=== PATIENT | male | born 1950 | race Caucasian/White ===

== ENCOUNTER 2018-02-27 06:31 | Day surgery (SDC) | payer MEDICARE, BC ==
[2018-02-27] MEDS ORDERED: Cyclopentolate 1% Opth Drop 2 ML BOT ONE (06:53)
[2018-02-27] MEDS ORDERED: Phenylephrine 2.5% Ophth Soln 5 ML BOT ONE (06:53)
[2018-02-27] MEDS ORDERED: Lidocaine 2% 10 ML INJ ONE (07:58)
[2018-02-27] MEDS ORDERED: Midazolam HCl 2 mg/2 ml Vial ONE (07:58)
[2018-02-27] MEDS ORDERED: PROPOFOL 20 ML ONE (07:58)
[2018-02-27] MEDS ORDERED: Fentanyl 100 MCG/2 ML VIAL ONE (07:58)
--- NOTE | 2018-02-27 10:59 | OP ---
DATE OF SURGERY: 02/27/2018 PREOPERATIVE DIAGNOSIS: Glaucoma, left eye. POSTOPERATIVE DIAGNOSIS: Glaucoma, left eye. PROCEDURE: Pars plana vitrectomy and membrane peel, tube shunt scleral patch graft, left eye. SURGEON: Cedric Carter M.D. ANESTHESIA: Local with monitored anesthesia care. COMPLICATIONS: None. PROCEDURE IN DETAIL: The patient was identified in the preoperative holding area. Appropriate infor med consent for the planned surgical procedure on the left eye had been obtained. The patient was tr ansported to the operative suite. Appropriate cardiopulmonary monitoring was established. Local ane sthesia was obtained using retrobulbar and modified Van Lint lid block using 50/50 mixture of 4% lido sina and 0.75% bupivacaine. The patient was prepped and draped in the usual sterile manner for opht halmic surgery on the left eye. Lid speculum was placed in the left eye. The 25-gauge trocars were placed in conjunctiva and sclera supratemporally, inferotemporally, and supranasally. Infusion line was placed inferotemporally. Light pipe and vitreous cutter inserted into the eye. Core vitrectomy was performed. Posterior hyaloid face was elevated using vacuum suction and peeled into the retinal periphery using vitreous cutter. Jerome retinal photocoagulation was placed into all non-macular areas of the retina. An FP7 tube shunt was placed after conjunctival peritomy superotemporally fixated darryl marycarmen with 5-0 mersilene sutures. Supratemporal sclerotomy was enlarged with a 22-gauge needle and the tube was inserted into the eye. The tube entry site was covered with Tutoplast graft, which was fix ated in place with 7-0 Vicryl suture. The position of the tube was noted to be good by direct inspec tion. Conjunctiva was closed with 6-0 plain gut suture. Retrobulbar Kenalog and subconjunctival Anc ef were placed. Atropine and antibiotic ointment were placed, and the eye was patched and shielded. Patient taken the postoperative recovery unit in good condition having suffered no immediate periope rative complications. DISCHARGE INSTRUCTIONS: The patient was instructed to keep patch and shield on, avoid lifting or joelle ding, and followup in the morning with Dr. Carter.
[2018-02-27] MEDS ORDERED: PROPOFOL 200 MG/20 ML VIAL ONE (13:08)
[2018-02-27] MEDS ORDERED: Lidocaine 1% PF 5 ML VIAL ONE (13:08)
== END 2018-02-27 10:57 | disposition home or self-care (01) ==
LOC: SDC 06:31
PROVIDERS: ATTEND Ophthalmology Retina Specialist
PROC: 08T53ZZ Resection of Left Vitreous, Percutaneous Approach (ICD-10-PCS; principal; 2018-02-27)
PROC: 08QF3ZZ Repair Left Retina, Percutaneous Approach (ICD-10-PCS; 2018-02-27)
PROC: 08NF3ZZ Release Left Retina, Percutaneous Approach (ICD-10-PCS; 2018-02-27)
PROC: 08133J4 Bypass Left Anterior Chamber to Sclera with Synthetic Substitute, Percutaneous Approach (ICD-10-PCS; 2018-02-27)
DX: E11.39 Type 2 diabetes mellitus with other diabetic ophthalmic complication (principal); H40.9 Unspecified glaucoma; H43.12 Vitreous hemorrhage, left eye; Z88.5 Allergy status to narcotic agent; Z79.4 Long term (current) use of insulin
CPT/HCPCS: 36416; J2250; J2704; J3010

== ENCOUNTER 2021-01-16 14:57 | Inpatient (IN) | payer MEDICARE, BC ==
[2021-01-16 15:39] LABS: #Eosinphils 0.1 thou/uL (0.0-0.7); #Lymphocytes 0.8 thou/uL (1.20-3.40); #Monocytes 0.5 thou/uL (0.11-0.59); #Neutrophils 7.8 thou/uL (1.40-6.50); %Basophils 0.5 % (0.0-1.0); %Eosinophils 1.6 % (0.0-10.0); %Lymphocytes 8.6 % (21.0-51.0); %Monocytes 5.2 % (0.0-10.0); %Neutrophils 84.1 % (42.0-75.0); Hemoglobin 8.6 g/dL (14.0-18.0); Mean Corpuscular HGB CONC 32.6 g/dL (32.0-36.0); Mean Corpuscular Hemoglobin 32.1 pg (27.0-31.0); Mean Corpuscular Volume 98.5 fL (78.0-98.0); Mean Platelet Volume 7.8 fL (7.4-10.4); Platelet Count 302 thou/uL (130-400); RBC Distribution Width 11.6 % (11.5-14.5); Red Blood Cell (RBC) Count 2.68 mill/uL (4.70-6.10); White Blood Cell (WBC) Count 9.3 thou/uL (4.8-10.8)
[2021-01-16 15:59] LABS: ALT (SGPT) 8 U/L (8-55); AST (SGOT) 12 U/L (5-34); Albumin 2.9 g/dL (3.4-4.8); Alkaline Phosphatase 70 U/L (40-110); Anion Gap 15 mmol/L (10-20); BUN (Urea Nitrogen) 46 mg/dL (8.4-25.7); Bilirubin, Total 0.2 mg/dL (0.2-1.2); Calc. Creatinine Clearance 0 mL/min (70-130); Calcium 7.9 mg/dL (7.8-10.44); Carbon Dioxide 25 mmol/L (23-31); Chloride 105 mmol/L (98-107); Globulin 2.8 g/dL (2.4-3.5); Glucose 140 mg/dL (80-115); Potassium 5.7 mmol/L (3.5-5.1); Protein, Total 5.7 g/dL (5.8-8.1); Sodium 139 mmol/L (136-145)
[2021-01-16] MEDS ORDERED: Calcium Gluc 4.6 MEQ/10 ML (100 MG/ML) ONE (16:47)
[2021-01-16] MEDS ORDERED: Nitroglycerin 2% Ointment 1 INCH/1 GM Packet ONE (17:31)
[2021-01-16] MEDS ORDERED: Furosemide 40 MG/4 ML VIAL ONE (17:31)
[2021-01-16] MEDS ORDERED: Acetaminophen 325 MG TAB PO PRN (18:45)
[2021-01-16] MEDS ORDERED: Ondansetron ODT 4 MG TAB SL PRN (18:45)
[2021-01-16] MEDS ORDERED: Ondansetron PF 4 MG/2 ML Vial IVP PRN (18:45)
[2021-01-16] MEDS ORDERED: hydrALAZINE 20 MG/ML VIAL SLOW IVP PRN (19:40)
[2021-01-16] MEDS ORDERED: Labetalol HCl 100 MG/20 ML VIAL SLOW IVP PRN (20:02)
[2021-01-16] MEDS: Amlodipine 5 MG TAB PO SCH (20:47)
[2021-01-16 21:53] LABS: Creatinine, Urine 24.15 mg/dL (63-166)
[2021-01-16] MEDS ORDERED: Carvedilol 6.25 MG TAB PO SCH (22:30)
[2021-01-17 00:05] VITALS: BMI 23.3
[2021-01-17] MEDS ORDERED: Enoxaparin Sodium 80 MG/0.8 ML SYRINGE SC SCH ×2 (00:15→21:00)
[2021-01-17 01:43] LABS: Bacteria/HPF None Seen HPF (None Seen); Bilirubin Negative (Negative); Blood, Urine Negative (Negative); Clarity Clear (Clear); Glucose, Urine (Dipstick) Normal (Negative); Ketone, Urine Negative (Negative); Leukocyte Negative Leu/uL (Negative); Nitrite Negative (Negative); Protein, Urine (Dipstick) 200 mg/dL (Neg-Trace); RBC/HPF 0-3 HPF (0-3); Squamous Epithelial None Seen HPF (0-3); Urobilinogen Normal mg/dL (Less than 2); WBC/HPF 0-3 HPF (0-3); pH, Urine 6.5 (5.0-9.0)
[2021-01-17 02:13] LABS: SARS-CoV-2 PCR by NAA Not Detected (NotDetected)
[2021-01-17 04:06] LABS: #Basophils 0.1 thou/uL (0.0-0.2); #Eosinphils 0.1 thou/uL (0.0-0.7); #Lymphocytes 0.7 thou/uL (1.20-3.40); #Monocytes 0.4 thou/uL (0.11-0.59); #Neutrophils 7.9 thou/uL (1.40-6.50); %Basophils 0.6 % (0.0-1.0); %Eosinophils 0.7 % (0.0-10.0); %Lymphocytes 7.9 % (21.0-51.0); %Monocytes 4.8 % (0.0-10.0); %Neutrophils 85.9 % (42.0-75.0); Hemoglobin 8.6 g/dL (14.0-18.0); Mean Corpuscular Hemoglobin 31.6 pg (27.0-31.0); Mean Corpuscular Volume 98.7 fL (78.0-98.0); Mean Platelet Volume 7.9 fL (7.4-10.4); Platelet Count 304 thou/uL (130-400); RBC Distribution Width 11.6 % (11.5-14.5); Red Blood Cell (RBC) Count 2.73 mill/uL (4.70-6.10); White Blood Cell (WBC) Count 9.2 thou/uL (4.8-10.8)
[2021-01-17 04:12] LABS: Albumin 2.6 g/dL (3.4-4.8); Anion Gap 19 mmol/L (10-20); BUN (Urea Nitrogen) 49 mg/dL (8.4-25.7); BUN/Creatinine Ratio 14.41; Calc. Creatinine Clearance 20 mL/min (70-130); Carbon Dioxide 22 mmol/L (23-31); Chloride 104 mmol/L (98-107); Glucose 150 mg/dL (80-115); Iron 13 ug/dL (65-175); Iron Binding Capacity, Total 194 mcg/dL (261-462); Phosphorus 4.9 mg/dL (2.3-4.7); Potassium 5.5 mmol/L (3.5-5.1); Sodium 139 mmol/L (136-145)
[2021-01-17] MEDS ORDERED: Carvedilol 6.25 MG TAB PO SCH (08:00)
[2021-01-17] MEDS: Amlodipine 5 MG TAB PO SCH (08:44)
[2021-01-17] MEDS: Carvedilol 6.25 MG TAB PO SCH ×2 (08:44→17:18)
[2021-01-17] MEDS ORDERED: Enoxaparin Sodium 30 MG/0.3 ML SYRINGE SC SCH (09:00)
[2021-01-17] MEDS ORDERED: Furosemide 40 MG/4 ML VIAL SLOW IVP SCH ×2 (09:00→16:30)
[2021-01-17] MEDS: Doxycycline 100 MG CAP PO SCH ×2 (11:01→20:20)
[2021-01-17] MEDS ORDERED: Iron, Sodium Ferric Gluconate 250 MG in Sodium Chloride 0.9% 100 ML IVPB SCH (16:15)
[2021-01-17] MEDS ORDERED: Dextrose 50% Abboject 50 ML SYRINGE SLOW IVP PRN (16:29)
[2021-01-17] MEDS ORDERED: Dextrose 5% in Water 1,000 ML IV PRN (16:29)
[2021-01-17] MEDS: Insulin Regular 300 UNITS/3 ML VIAL SC PRN (17:30)
[2021-01-17 18:29] LABS: Hemoglobin 8.6 g/dL (14.0-18.0); Platelet Count 330 thou/uL (130-400)
[2021-01-17] MEDS: Atorvastatin Calcium 20 MG TAB PO SCH (20:20)
[2021-01-18 04:50] LABS: #Eosinphils 0.1 thou/uL (0.0-0.7); #Lymphocytes 0.5 thou/uL (1.20-3.40); #Monocytes 0.5 thou/uL (0.11-0.59); #Neutrophils 7.8 thou/uL (1.40-6.50); %Basophils 0.5 % (0.0-1.0); %Eosinophils 1.4 % (0.0-10.0); %Monocytes 5.7 % (0.0-10.0); %Neutrophils 86.4 % (42.0-75.0); Hemoglobin 8.2 g/dL (14.0-18.0); Mean Corpuscular HGB CONC 33.1 g/dL (32.0-36.0); Mean Corpuscular Hemoglobin 32.2 pg (27.0-31.0); Mean Corpuscular Volume 97.2 fL (78.0-98.0); Mean Platelet Volume 7.9 fL (7.4-10.4); Platelet Count 301 thou/uL (130-400); RBC Distribution Width 11.5 % (11.5-14.5); Red Blood Cell (RBC) Count 2.56 mill/uL (4.70-6.10)
[2021-01-18 05:10] LABS: Albumin 2.6 g/dL (3.4-4.8); Anion Gap 14 mmol/L (10-20); BUN (Urea Nitrogen) 54 mg/dL (8.4-25.7); BUN/Creatinine Ratio 14.14; Calc. Creatinine Clearance 18 mL/min (70-130); Calcium 7.9 mg/dL (7.8-10.44); Carbon Dioxide 25 mmol/L (23-31); Cardiac Risk 3.5 (Less than 4.5); Chloride 103 mmol/L (98-107); Cholesterol 114 mg/dl (< 200 Desired); Glucose 186 mg/dL (80-115); HDL Cholesterol 33 mg/dL (>60 Neg Risk); LDL Cholesterol, Calculated 72 mg/dL; Magnesium 3.2 mg/dL (1.6-2.6); Phosphorus 5.2 mg/dL (2.3-4.7); Potassium 4.4 mmol/L (3.5-5.1); Sodium 138 mmol/L (136-145); Triglycerides 46 mg/dL (Less than 150)
[2021-01-18] MEDS: Furosemide 40 MG/4 ML VIAL SLOW IVP SCH ×2 (06:02→14:44)
[2021-01-18] MEDS: Insulin Regular 300 UNITS/3 ML VIAL SC PRN ×3 (06:02→18:30)
[2021-01-18] MEDS: Carvedilol 6.25 MG TAB PO SCH (08:32)
[2021-01-18] MEDS: Amlodipine 5 MG TAB PO SCH (08:32)
[2021-01-18] MEDS ORDERED: Iron, Sodium Ferric Gluconate 250 MG in Sodium Chloride 0.9% 100 ML IVPB SCH (09:15)
[2021-01-18] MEDS ORDERED: EPOETIN ALFA-EPBX (ESRD) 4,000 UNIT/ML VIAL SC SCH (09:30)
[2021-01-18] MEDS ORDERED: Iron Sucrose Complex 200 MG in Sodium Chloride 0.9% 100 ML IVPB SCH (11:00)
[2021-01-18] MEDS: Atorvastatin Calcium 20 MG TAB PO SCH (20:40)
[2021-01-18] MEDS: Enoxaparin Sodium 30 MG/0.3 ML SYRINGE SC SCH (20:41)
[2021-01-18] MEDS: HumaLOG 300 UNITS/3 ML VIAL SC PRN (22:28)
[2021-01-19 05:31] LABS: Albumin 2.5 g/dL (3.4-4.8); Anion Gap 12 mmol/L (10-20); BUN (Urea Nitrogen) 51 mg/dL (8.4-25.7); BUN/Creatinine Ratio 12.94; Calc. Creatinine Clearance 17 mL/min (70-130); Calcium 7.7 mg/dL (7.8-10.44); Carbon Dioxide 27 mmol/L (23-31); Chloride 102 mmol/L (98-107); Glucose 128 mg/dL (80-115); Phosphorus 5.3 mg/dL (2.3-4.7); Potassium 3.8 mmol/L (3.5-5.1); Sodium 137 mmol/L (136-145)
[2021-01-19] MEDS: Furosemide 40 MG/4 ML VIAL SLOW IVP SCH (05:54)
[2021-01-19] MEDS: Calcitriol 0.25 MCG CAP PO SCH (09:08)
[2021-01-19] MEDS: Furosemide 20 MG TAB PO SCH ×2 (09:09→14:34)
[2021-01-19] MEDS: Insulin Regular 300 UNITS/3 ML VIAL SC PRN (17:17)
[2021-01-19] MEDS: Atorvastatin Calcium 20 MG TAB PO SCH (21:19)
[2021-01-19] MEDS: Enoxaparin Sodium 30 MG/0.3 ML SYRINGE SC SCH (21:19)
[2021-01-19] MEDS: HumaLOG 300 UNITS/3 ML VIAL SC PRN (22:39)
[2021-01-20 04:55] LABS: Albumin 2.4 g/dL (3.4-4.8); Anion Gap 14 mmol/L (10-20); BUN (Urea Nitrogen) 54 mg/dL (8.4-25.7); Calc. Creatinine Clearance 16 mL/min (70-130); Calcium 7.7 mg/dL (7.8-10.44); Carbon Dioxide 25 mmol/L (23-31); Chloride 101 mmol/L (98-107); Glucose 158 mg/dL (80-115); Phosphorus 4.9 mg/dL (2.3-4.7); Potassium 3.6 mmol/L (3.5-5.1); Sodium 136 mmol/L (136-145)
[2021-01-20] MEDS: Insulin Regular 300 UNITS/3 ML VIAL SC PRN ×3 (06:37→17:02)
[2021-01-20] MEDS: Furosemide 20 MG TAB PO SCH (08:26)
[2021-01-20] MEDS: Calcitriol 0.25 MCG CAP PO SCH (08:26)
[2021-01-20] MEDS ORDERED: Metolazone 5 MG TAB PO SCH (12:30)
[2021-01-20] MEDS: Furosemide 40 MG/4 ML VIAL SLOW IVP SCH (13:46)
[2021-01-20] MEDS: Enoxaparin Sodium 30 MG/0.3 ML SYRINGE SC SCH (20:51)
[2021-01-20] MEDS: Timolol 0.5% Ophth Soln 5 ml Bottle EA EYE SCH (20:52)
[2021-01-20] MEDS: Albumin 25% 25 GM/100 ML BOT IVPB SCH (20:52)
[2021-01-20] MEDS: HumaLOG 300 UNITS/3 ML VIAL SC PRN (20:53)
[2021-01-21 04:34] LABS: #Eosinphils 0.2 thou/uL (0.0-0.7); #Lymphocytes 0.9 thou/uL (1.20-3.40); #Monocytes 0.8 thou/uL (0.11-0.59); #Neutrophils 6.3 thou/uL (1.40-6.50); %Basophils 0.1 % (0.0-1.0); %Eosinophils 2.3 % (0.0-10.0); %Lymphocytes 11.2 % (21.0-51.0); %Monocytes 9.2 % (0.0-10.0); %Neutrophils 77.1 % (42.0-75.0); Hemoglobin 7.6 g/dL (14.0-18.0); Mean Corpuscular HGB CONC 32.2 g/dL (32.0-36.0); Mean Corpuscular Hemoglobin 31.3 pg (27.0-31.0); Mean Corpuscular Volume 97.3 fL (78.0-98.0); Mean Platelet Volume 7.6 fL (7.4-10.4); Platelet Count 302 thou/uL (130-400); RBC Distribution Width 11.6 % (11.5-14.5); Red Blood Cell (RBC) Count 2.43 mill/uL (4.70-6.10); White Blood Cell (WBC) Count 8.2 thou/uL (4.8-10.8)
[2021-01-21 04:58] LABS: Anion Gap 17 mmol/L (10-20); BUN (Urea Nitrogen) 56 mg/dL (8.4-25.7); Calc. Creatinine Clearance 16 mL/min (70-130); Calcium 7.7 mg/dL (7.8-10.44); Carbon Dioxide 22 mmol/L (23-31); Chloride 100 mmol/L (98-107); Glucose 175 mg/dL (80-115); Potassium 3.9 mmol/L (3.5-5.1); Sodium 135 mmol/L (136-145)
[2021-01-21] MEDS: Furosemide 40 MG/4 ML VIAL SLOW IVP SCH ×2 (05:15→17:24)
[2021-01-21] MEDS: Insulin Regular 300 UNITS/3 ML VIAL SC PRN (05:59)
[2021-01-21] MEDS: Timolol 0.5% Ophth Soln 5 ml Bottle EA EYE SCH ×2 (08:23→21:37)
[2021-01-21] MEDS: Albumin 25% 25 GM/100 ML BOT IVPB SCH ×3 (08:23→21:36)
[2021-01-21] MEDS: Calcitriol 0.25 MCG CAP PO SCH (08:28)
[2021-01-21 08:34] LABS: INR-International Normal Ratio 1.2; Prothrombin Time 15.7 sec (12.0-14.7)
[2021-01-21 08:35] LABS: PTT 40.3 sec (22.9-36.1)
[2021-01-21] MEDS ORDERED: Sodium Bicarbonate 2.5 MEQ/5 ML VIAL ONE (14:09)
[2021-01-21] MEDS ORDERED: Lidocaine 1% PF 5 ML VIAL ONE (14:09)
[2021-01-21] MEDS: Enoxaparin Sodium 30 MG/0.3 ML SYRINGE SC SCH (21:35)
[2021-01-21] MEDS: HumaLOG 300 UNITS/3 ML VIAL SC PRN (21:37)
[2021-01-22 05:25] LABS: #Eosinphils 0.3 thou/uL (0.0-0.7); #Lymphocytes 0.8 thou/uL (1.20-3.40); #Monocytes 0.5 thou/uL (0.11-0.59); #Neutrophils 6.5 thou/uL (1.40-6.50); %Basophils 0.4 % (0.0-1.0); %Eosinophils 3.3 % (0.0-10.0); %Lymphocytes 9.7 % (21.0-51.0); %Monocytes 6.3 % (0.0-10.0); %Neutrophils 80.4 % (42.0-75.0); Hemoglobin 7.3 g/dL (14.0-18.0); Mean Corpuscular HGB CONC 33.2 g/dL (32.0-36.0); Mean Corpuscular Hemoglobin 32.1 pg (27.0-31.0); Mean Corpuscular Volume 96.7 fL (78.0-98.0); Mean Platelet Volume 7.9 fL (7.4-10.4); Platelet Count 295 thou/uL (130-400); RBC Distribution Width 11.8 % (11.5-14.5); Red Blood Cell (RBC) Count 2.29 mill/uL (4.70-6.10); White Blood Cell (WBC) Count 8.1 thou/uL (4.8-10.8)
[2021-01-22 05:30] LABS: Hemoglobin A1c 5.4 % (4.0-6.0)
[2021-01-22 05:49] LABS: Anion Gap 15 mmol/L (10-20); BUN (Urea Nitrogen) 57 mg/dL (8.4-25.7); Calc. Creatinine Clearance 15 mL/min (70-130); Carbon Dioxide 28 mmol/L (23-31); Chloride 97 mmol/L (98-107); Glucose 183 mg/dL (80-115); Potassium 3.7 mmol/L (3.5-5.1); Sodium 136 mmol/L (136-145)
[2021-01-22] MEDS: Calcitriol 0.25 MCG CAP PO SCH (09:15)
[2021-01-22] MEDS: Magnesium Oxide 400 MG TAB PO SCH (09:16)
[2021-01-22] MEDS: Cholecalciferol 1,000 UNITS (25 MCG) TAB PO SCH (09:16)
[2021-01-22] MEDS: Latanoprost 0.005% Ophth Soln 2.5 ml Bottle L EYE SCH (09:17)
[2021-01-22] MEDS: Timolol 0.5% Ophth Soln 5 ml Bottle EA EYE SCH ×2 (09:17→21:17)
[2021-01-22] MEDS: Zinc Sulfate 220 MG CAP PO SCH (09:18)
[2021-01-22] MEDS: Insulin Regular 300 UNITS/3 ML VIAL SC PRN ×2 (09:45→17:24)
[2021-01-22] MEDS ORDERED: Lidocaine 1% PF 5 ML VIAL ONE (10:04)
[2021-01-22] MEDS ORDERED: Sodium Bicarbonate 2.5 MEQ/5 ML VIAL ONE (10:04)
[2021-01-22] MEDS ORDERED: cefTRIAXone\\ROCEPHIN 2 GM in Sodium Chloride 0.9% 100 ML IVPB SCH (16:00)
[2021-01-22] MEDS: Ferrous Sulfate 325 MG TAB PO SCH (16:08)
[2021-01-22] MEDS ORDERED: Vancomycin HCl 1 GM in Sodium Chloride 0.9% 250 ML 250 ML IVPB SCH (17:00)
[2021-01-22] MEDS ORDERED: Vancomycin 1 GM in Premix Bag 1 BAG IVPB SCH (17:00)
[2021-01-22] MEDS: Enoxaparin Sodium 30 MG/0.3 ML SYRINGE SC SCH (21:18)
[2021-01-23 05:22] LABS: #Eosinphils 0.4 thou/uL (0.0-0.7); #Monocytes 0.5 thou/uL (0.11-0.59); #Neutrophils 5.5 thou/uL (1.40-6.50); %Basophils 0.6 % (0.0-1.0); %Eosinophils 5.2 % (0.0-10.0); %Lymphocytes 13.2 % (21.0-51.0); %Monocytes 6.8 % (0.0-10.0); %Neutrophils 74.1 % (42.0-75.0); Hemoglobin 7.6 g/dL (14.0-18.0); Mean Corpuscular HGB CONC 32.3 g/dL (32.0-36.0); Mean Corpuscular Hemoglobin 31.4 pg (27.0-31.0); Mean Corpuscular Volume 97.2 fL (78.0-98.0); Mean Platelet Volume 7.7 fL (7.4-10.4); Platelet Count 307 thou/uL (130-400); RBC Distribution Width 11.9 % (11.5-14.5); Red Blood Cell (RBC) Count 2.41 mill/uL (4.70-6.10); White Blood Cell (WBC) Count 7.4 thou/uL (4.8-10.8)
[2021-01-23] MEDS: HumaLOG 300 UNITS/3 ML VIAL SC PRN (05:22)
[2021-01-23 05:48] LABS: Anion Gap 16 mmol/L (10-20); BUN (Urea Nitrogen) 55 mg/dL (8.4-25.7); Calc. Creatinine Clearance 15 mL/min (70-130); Calcium 7.9 mg/dL (7.8-10.44); Carbon Dioxide 24 mmol/L (23-31); Chloride 100 mmol/L (98-107); Glucose 190 mg/dL (80-115); Potassium 3.9 mmol/L (3.5-5.1); Sodium 136 mmol/L (136-145)
[2021-01-23] MEDS ORDERED: Amlodipine 5 MG TAB PO SCH (09:00)
[2021-01-23] MEDS: Ferrous Sulfate 325 MG TAB PO SCH (09:38)
[2021-01-23] MEDS: Zinc Sulfate 220 MG CAP PO SCH (09:39)
[2021-01-23] MEDS: Calcitriol 0.25 MCG CAP PO SCH (09:40)
[2021-01-23] MEDS: Latanoprost 0.005% Ophth Soln 2.5 ml Bottle L EYE SCH (09:40)
[2021-01-23] MEDS: Timolol 0.5% Ophth Soln 5 ml Bottle EA EYE SCH (09:40)
[2021-01-23] MEDS: Cholecalciferol 1,000 UNITS (25 MCG) TAB PO SCH (09:40)
[2021-01-23] MEDS: Magnesium Oxide 400 MG TAB PO SCH (09:41)
[2021-01-23] MEDS ORDERED: Ascorbic Acid 500 mg Chewable Tablet PO SCH (10:30)
[2021-01-23] MEDS ORDERED: NIFEdipine XL 30 MG TAB PO SCH (11:15)
[2021-01-23] MEDS: Insulin Regular 300 UNITS/3 ML VIAL SC PRN (11:29)
[2021-01-23 12:29] VITALS: TEMP 98.1
[2021-01-23 15:54] VITALS: BP 165/79
[2021-01-23] MEDS ORDERED: Apixaban 2.5 MG TAB PO SCH (21:00)
[2021-01-24] MEDS ORDERED: Ascorbic Acid 500 mg Chewable Tablet PO SCH (09:00)
[2021-01-24] MEDS ORDERED: NIFEdipine XL 30 MG TAB PO SCH (09:00)
== END 2021-01-23 17:24 | disposition home or self-care (01) | DRG 291 ==
LOC: ERS 14:57 → IMCU/EMU 17:21 → 2NO 01-17 14:40
PROVIDERS: ADMIT Internal Medicine; ATTEND Hospitalist
PROC: 0W993ZZ Drainage of Right Pleural Cavity, Percutaneous Approach (ICD-10-PCS; principal; 2021-01-21)
PROC: 0W9B3ZZ Drainage of Left Pleural Cavity, Percutaneous Approach (ICD-10-PCS; 2021-01-22)
DX: I13.2 Hypertensive heart and chronic kidney disease with heart failure and with stage 5 chronic kidney disease, or end stage renal disease (principal); I50.33 Acute on chronic diastolic (congestive) heart failure; J96.00 Acute respiratory failure, unspecified whether with hypoxia or hypercapnia; N17.9 Acute kidney failure, unspecified; I16.1 Hypertensive emergency; I31.3 Pericardial effusion (noninflammatory); J91.8 Pleural effusion in other conditions classified elsewhere; N25.81 Secondary hyperparathyroidism of renal origin; N18.5 Chronic kidney disease, stage 5; Z20.822 Contact with and (suspected) exposure to COVID-19; M06.9 Rheumatoid arthritis, unspecified; E11.319 Type 2 diabetes mellitus with unspecified diabetic retinopathy without macular edema; E87.5 Hyperkalemia; D63.1 Anemia in chronic kidney disease; E11.22 Type 2 diabetes mellitus with diabetic chronic kidney disease; I48.0 Paroxysmal atrial fibrillation; N25.89 Other disorders resulting from impaired renal tubular function; E83.39 Other disorders of phosphorus metabolism; D50.9 Iron deficiency anemia, unspecified; E11.65 Type 2 diabetes mellitus with hyperglycemia; Z88.8 Allergy status to other drugs, medicaments and biological substances; Z79.899 Other long term (current) drug therapy; Z79.4 Long term (current) use of insulin; Z82.49 Family history of ischemic heart disease and other diseases of the circulatory system; Z80.1 Family history of malignant neoplasm of trachea, bronchus and lung
CPT/HCPCS: 36415; 36416; 71045; 71046; 76705; 76770; 76942; 80048; 80053; 80061; 80069; 81001; 82306; 82570; 82728; 83036; 83540; 83550; 83735; 83880; 83970; 84156; 84484; 85025; 85379; 85520; 85610; 85730; 86850; 86900; 86901; 87070; 87205; 87635; 93005; 93306; 93798; 93970; 96365; 96375; J0360; J1650; J1756; J1815; J1940; J2001; J2916; J3490; P9047; Q5105; U0003; U0005

== ENCOUNTER 2021-02-23 13:06 | Outpatient (CLI) | payer MEDICARE, BC | END 2021-02-23 13:07 | disposition home or self-care (01) | LOC: BICRAD 13:06 | PROVIDERS: ATTEND Internal Medicine Pulmonary Disease | DX: R06.00 Dyspnea, unspecified (principal) | CPT/HCPCS: 71046 ==

== ENCOUNTER 2021-03-31 14:23 | Day surgery (SDC) | payer MEDICARE, BC ==
[2021-03-31] MEDS: EPOETIN ALFA-EPBX (ESRD) 10,000 UNIT/ML VIAL ONE (14:31)
[2021-03-31 15:26] VITALS: BP 174/74; TEMP 97.8
== END 2021-03-31 15:26 | disposition home or self-care (01) ==
LOC: ONC/OP 14:23
PROVIDERS: ATTEND Internal Medicine Nephrology
DX: N18.5 Chronic kidney disease, stage 5 (principal); D63.1 Anemia in chronic kidney disease; Z88.5 Allergy status to narcotic agent
CPT/HCPCS: 96372; Q5105

== ENCOUNTER 2021-04-27 13:39 | Day surgery (SDC) | payer MEDICARE, BC ==
[2021-04-27 13:55] VITALS: BP 190/91; TEMP 97.8
== END 2021-04-27 14:25 | disposition home or self-care (01) ==
LOC: ONC/OP 13:39
PROVIDERS: ATTEND Internal Medicine Nephrology
DX: N18.5 Chronic kidney disease, stage 5 (principal); D63.1 Anemia in chronic kidney disease; Z88.5 Allergy status to narcotic agent
CPT/HCPCS: 96372; Q5105

== ENCOUNTER 2021-05-25 | Day surgery (SDC) | payer MEDICARE, BC | END 2021-05-25 15:35 | disposition home or self-care (01) ==

== ENCOUNTER 2021-06-08 16:07 | Inpatient (IN) | payer MEDICARE, BC ==
[2021-06-08 16:43] LABS: #Eosinphils 0.2 thou/uL (0.0-0.7); #Lymphocytes 0.7 thou/uL (1.20-3.40); #Monocytes 0.3 thou/uL (0.11-0.59); #Neutrophils 4.4 thou/uL (1.40-6.50); %Basophils 0.8 % (0.0-1.0); %Eosinophils 2.9 % (0.0-10.0); %Monocytes 5.6 % (0.0-10.0); %Neutrophils 77.7 % (42.0-75.0); Hemoglobin 8.4 g/dL (14.0-18.0); Mean Corpuscular HGB CONC 32.9 g/dL (32.0-36.0); Mean Corpuscular Hemoglobin 32.4 pg (27.0-31.0); Mean Corpuscular Volume 98.6 fL (78.0-98.0); Mean Platelet Volume 7.6 fL (7.4-10.4); Platelet Count 155 thou/uL (130-400); RBC Distribution Width 14.3 % (11.5-14.5); Red Blood Cell (RBC) Count 2.59 mill/uL (4.70-6.10); White Blood Cell (WBC) Count 5.7 thou/uL (4.8-10.8)
[2021-06-08 17:01] LABS: ALT (SGPT) 7 U/L (8-55); AST (SGOT) 9 U/L (5-34); Albumin 3.2 g/dL (3.4-4.8); Alkaline Phosphatase 47 U/L (40-110); Anion Gap 17 mmol/L (10-20); BUN (Urea Nitrogen) 76 mg/dL (8.4-25.7); Bilirubin, Total 0.3 mg/dL (0.2-1.2); Calc. Creatinine Clearance 0 mL/min (70-130); Calcium 8.1 mg/dL (7.8-10.44); Carbon Dioxide 22 mmol/L (23-31); Chloride 107 mmol/L (98-107); Globulin 2.9 g/dL (2.4-3.5); Glucose 92 mg/dL (80-115); Potassium 5.5 mmol/L (3.5-5.1); Protein, Total 6.1 g/dL (5.8-8.1); Sodium 140 mmol/L (136-145)
[2021-06-08] MEDS ORDERED: Nitroglycerin 2% Ointment 1 INCH/1 GM Packet ONE (19:20)
[2021-06-08] MEDS ORDERED: Furosemide 40 MG/4 ML VIAL ONE (19:20)
[2021-06-08 21:13] LABS: SARS-CoV-2 NAA Rapid Test Not Detected (NotDetected)
[2021-06-08 23:12] LABS: Troponin I 0.023 ng/mL (< 0.028)
[2021-06-09] MEDS ORDERED: NIFEdipine XL 60 MG TAB PO SCH (00:45)
[2021-06-09] MEDS ORDERED: Folic Acid 1 MG TAB PO SCH (00:45)
[2021-06-09] MEDS: Folic Acid 1 MG TAB PO SCH ×6 (01:38→21:59)
[2021-06-09 01:46] LABS: Troponin I Less than 0.010 ng/mL (< 0.028)
[2021-06-09] MEDS ORDERED: Dextrose 50% Abboject 50 ML SYRINGE SLOW IVP PRN (04:03)
[2021-06-09] MEDS ORDERED: HumaLOG 300 UNITS/3 ML VIAL SC PRN (04:03)
[2021-06-09] MEDS ORDERED: Acetaminophen 650 MG Suppository PR PRN (04:03)
[2021-06-09] MEDS ORDERED: Acetaminophen 325 MG TAB PO PRN (04:03)
[2021-06-09] MEDS ORDERED: Dextrose 5% in Water 1,000 ML IV PRN (04:03)
[2021-06-09] MEDS ORDERED: hydrALAZINE 20 MG/ML VIAL SLOW IVP PRN (04:14)
[2021-06-09 04:44] LABS: #Eosinphils 0.1 thou/uL (0.0-0.7); #Lymphocytes 0.6 thou/uL (1.20-3.40); #Monocytes 0.2 thou/uL (0.11-0.59); #Neutrophils 3.5 thou/uL (1.40-6.50); %Basophils 0.2 % (0.0-1.0); %Eosinophils 2.4 % (0.0-10.0); %Lymphocytes 13.6 % (21.0-51.0); %Monocytes 5.3 % (0.0-10.0); %Neutrophils 78.6 % (42.0-75.0); Hemoglobin 8.8 g/dL (14.0-18.0); Mean Corpuscular HGB CONC 33.5 g/dL (32.0-36.0); Mean Corpuscular Hemoglobin 32.7 pg (27.0-31.0); Mean Corpuscular Volume 97.8 fL (78.0-98.0); Platelet Count 168 thou/uL (130-400); RBC Distribution Width 14.1 % (11.5-14.5); Red Blood Cell (RBC) Count 2.69 mill/uL (4.70-6.10); White Blood Cell (WBC) Count 4.4 thou/uL (4.8-10.8)
[2021-06-09 04:57] LABS: Anion Gap 17 mmol/L (10-20); BUN (Urea Nitrogen) 74 mg/dL (8.4-25.7); Calc. Creatinine Clearance 8 mL/min (70-130); Calcium 8.3 mg/dL (7.8-10.44); Carbon Dioxide 22 mmol/L (23-31); Chloride 104 mmol/L (98-107); Glucose 198 mg/dL (80-115); Sodium 138 mmol/L (136-145)
[2021-06-09] MEDS: Labetalol 100 MG TAB PO SCH ×2 (08:33→22:00)
[2021-06-09] MEDS: NIFEdipine XL 60 MG TAB PO SCH ×2 (08:33→22:11)
[2021-06-09 08:38] LABS: Iron 44 ug/dL (65-175); Iron Binding Capacity, Total 190 mcg/dL (261-462)
[2021-06-09] MEDS ORDERED: Furosemide 40 MG/4 ML VIAL SLOW IVP SCH (08:45)
[2021-06-09] MEDS: HumaLOG 300 UNITS/3 ML VIAL SC PRN ×2 (11:26→17:17)
[2021-06-09] MEDS ORDERED: Furosemide 100 MG/10 ML VIAL SLOW IVP SCH (16:15)
[2021-06-09] MEDS ORDERED: Sodium Bicarbonate Tab 325 MG TAB PO SCH (16:15)
[2021-06-09] MEDS ORDERED: Metolazone 2.5 MG TAB PO SCH (16:15)
[2021-06-09] MEDS ORDERED: Lantus 1000 UNITS/10 ML VIAL SC SCH (21:30)
[2021-06-09] MEDS: Sodium Bicarbonate Tab 325 MG TAB PO SCH (21:59)
[2021-06-09] MEDS ORDERED: Melatonin 3 MG TAB PO PRN (22:09)
[2021-06-10] MEDS: Folic Acid 1 MG TAB PO SCH ×7 (03:34→15:16)
[2021-06-10 04:24] LABS: #Eosinphils 0.1 thou/uL (0.0-0.7); #Lymphocytes 0.7 thou/uL (1.20-3.40); #Monocytes 0.4 thou/uL (0.11-0.59); #Neutrophils 3.5 thou/uL (1.40-6.50); %Basophils 0.7 % (0.0-1.0); %Eosinophils 2.8 % (0.0-10.0); %Lymphocytes 13.8 % (21.0-51.0); %Neutrophils 73.7 % (42.0-75.0); Hemoglobin 7.7 g/dL (14.0-18.0); Mean Corpuscular HGB CONC 32.9 g/dL (32.0-36.0); Mean Corpuscular Hemoglobin 32.2 pg (27.0-31.0); Mean Platelet Volume 8.2 fL (7.4-10.4); Platelet Count 144 thou/uL (130-400); RBC Distribution Width 14.1 % (11.5-14.5); Red Blood Cell (RBC) Count 2.38 mill/uL (4.70-6.10); White Blood Cell (WBC) Count 4.7 thou/uL (4.8-10.8)
[2021-06-10 04:36] LABS: Anion Gap 16 mmol/L (10-20); BUN (Urea Nitrogen) 75 mg/dL (8.4-25.7); Calc. Creatinine Clearance 8 mL/min (70-130); Carbon Dioxide 22 mmol/L (23-31); Chloride 105 mmol/L (98-107); Glucose 148 mg/dL (80-115); Potassium 4.7 mmol/L (3.5-5.1); Sodium 138 mmol/L (136-145)
[2021-06-10 05:26] VITALS: BMI 21.7
[2021-06-10] MEDS ORDERED: Iron Sucrose Complex 200 MG in Sodium Chloride 0.9% 100 ML IVPB SCH (06:15)
[2021-06-10] MEDS ORDERED: Iron, Sodium Ferric Gluconate 250 MG in Sodium Chloride 0.9% 250 ML 250 ML IVPB SCH (07:30)
[2021-06-10] MEDS ORDERED: Metolazone 2.5 MG TAB PO SCH (08:30)
[2021-06-10] MEDS ORDERED: EPOETIN ALFA-EPBX (ESRD) 2,000 UNIT/ML VIAL SC SCH (09:00)
[2021-06-10] MEDS ORDERED: Epoetin (ESRD) 20,000 UNITS/ML SC SCH (09:00)
[2021-06-10] MEDS ORDERED: EPOETIN ALFA-EPBX (ESRD) 3,000 UNIT/ML VIAL SC SCH (09:00)
[2021-06-10] MEDS: Sodium Bicarbonate Tab 325 MG TAB PO SCH (09:45)
[2021-06-10] MEDS: NIFEdipine XL 60 MG TAB PO SCH (09:46)
[2021-06-10] MEDS: HumaLOG 300 UNITS/3 ML VIAL SC PRN ×2 (11:06→17:27)
[2021-06-10] MEDS ORDERED: Torsemide 100 MG TAB PO SCH (14:45)
[2021-06-10 15:15] VITALS: TEMP 97.7
[2021-06-10 15:47] VITALS: BP 128/61
[2021-06-10] MEDS ORDERED: Lantus 1000 UNITS/10 ML VIAL SC SCH (21:00)
[2021-06-11] MEDS ORDERED: Torsemide 100 MG TAB PO SCH (09:00)
== END 2021-06-10 18:04 | disposition home or self-care (01) | DRG 291 ==
LOC: ERS 16:07 → 2NO 21:37
PROVIDERS: ADMIT Student in an Organized Health Care Education/Training Program; ATTEND Internal Medicine
DX: I13.2 Hypertensive heart and chronic kidney disease with heart failure and with stage 5 chronic kidney disease, or end stage renal disease (principal); J96.01 Acute respiratory failure with hypoxia; I50.31 Acute diastolic (congestive) heart failure; N17.9 Acute kidney failure, unspecified; E87.2 Acidosis; N18.5 Chronic kidney disease, stage 5; Z20.822 Contact with and (suspected) exposure to COVID-19; L89.159 Pressure ulcer of sacral region, unspecified stage; E87.5 Hyperkalemia; D63.1 Anemia in chronic kidney disease; E11.22 Type 2 diabetes mellitus with diabetic chronic kidney disease; E11.40 Type 2 diabetes mellitus with diabetic neuropathy, unspecified; E11.319 Type 2 diabetes mellitus with unspecified diabetic retinopathy without macular edema; M06.9 Rheumatoid arthritis, unspecified; Z79.01 Long term (current) use of anticoagulants; Z79.4 Long term (current) use of insulin; Z79.899 Other long term (current) drug therapy; Z88.5 Allergy status to narcotic agent
CPT/HCPCS: 36415; 36416; 71045; 71046; 80048; 80053; 82728; 83540; 83550; 83880; 84484; 85025; 93005; 96374; J0360; J1815; J1940; J2916; J7050; Q5105; U0002

== ENCOUNTER 2021-06-20 16:44 | Inpatient (IN) | payer MEDICARE, BC ==
[2021-06-20 17:40] LABS: #Eosinphils 0.1 thou/uL (0.0-0.7); #Lymphocytes 0.7 thou/uL (1.20-3.40); #Monocytes 0.4 thou/uL (0.11-0.59); %Basophils 0.9 % (0.0-1.0); %Eosinophils 2.2 % (0.0-10.0); %Lymphocytes 16.2 % (21.0-51.0); %Monocytes 8.5 % (0.0-10.0); %Neutrophils 72.1 % (42.0-75.0); Hemoglobin 7.3 g/dL (14.0-18.0); Mean Corpuscular HGB CONC 33.3 g/dL (32.0-36.0); Mean Corpuscular Hemoglobin 32.6 pg (27.0-31.0); Mean Platelet Volume 7.7 fL (7.4-10.4); Platelet Count 127 thou/uL (130-400); RBC Distribution Width 13.8 % (11.5-14.5); Red Blood Cell (RBC) Count 2.25 mill/uL (4.70-6.10); White Blood Cell (WBC) Count 4.2 thou/uL (4.8-10.8)
[2021-06-20 18:11] LABS: AST (SGOT) 8 U/L (5-34); Anion Gap 17 mmol/L (10-20); Bilirubin, Total 0.2 mg/dL (0.2-1.2); Calcium 8.2 mg/dL (7.8-10.44); Carbon Dioxide 23 mmol/L (23-31); Chloride 103 mmol/L (98-107); Potassium 5.2 mmol/L (3.5-5.1); Sodium 138 mmol/L (136-145)
[2021-06-20 18:34] LABS: Albumin 3.2 g/dL (3.4-4.8)
[2021-06-20 18:37] LABS: Globulin 2.5 g/dL (2.4-3.5); Glucose 67 mg/dL (80-115); Protein, Total 5.7 g/dL (5.8-8.1)
[2021-06-20 18:40] LABS: Alkaline Phosphatase 41 U/L (40-110); Calc. Creatinine Clearance 0 mL/min (70-130)
[2021-06-20 18:41] LABS: BUN (Urea Nitrogen) 83 mg/dL (8.4-25.7)
[2021-06-20 18:43] LABS: ALT (SGPT) 7 U/L (8-55); Acetaminophen Less than 6.0 mcg/mL (10.0-30.0); Alcohol Less than 10 mg/dL (Less than 10); Salicylate Less than 8.0 mg/dL (15.0-30.0)
[2021-06-20] MEDS ORDERED: Ondansetron PF 4 MG/2 ML Vial IVP PRN (22:03)
[2021-06-20] MEDS ORDERED: HumaLOG 300 UNITS/3 ML VIAL SC PRN (22:03)
[2021-06-20] MEDS ORDERED: Acetaminophen 650 MG Suppository PR PRN (22:03)
[2021-06-20] MEDS ORDERED: Dextrose 5% in Water 1,000 ML IV PRN (22:03)
[2021-06-20] MEDS ORDERED: Ondansetron ODT 4 MG TAB PO PRN (22:03)
[2021-06-20] MEDS ORDERED: Dextrose 50% Abboject 50 ML SYRINGE SLOW IVP PRN (22:03)
[2021-06-20] MEDS ORDERED: Acetaminophen 325 MG TAB PO PRN (22:03)
[2021-06-21 04:34] LABS: #Eosinphils 0.1 thou/uL (0.0-0.7); #Lymphocytes 0.7 thou/uL (1.20-3.40); #Monocytes 0.3 thou/uL (0.11-0.59); #Neutrophils 2.9 thou/uL (1.40-6.50); %Basophils 0.3 % (0.0-1.0); %Eosinophils 2.9 % (0.0-10.0); %Lymphocytes 16.4 % (21.0-51.0); %Neutrophils 73.3 % (42.0-75.0); Hemoglobin 7.4 g/dL (14.0-18.0); Mean Corpuscular HGB CONC 32.3 g/dL (32.0-36.0); Mean Corpuscular Hemoglobin 31.5 pg (27.0-31.0); Mean Corpuscular Volume 97.4 fL (78.0-98.0); Mean Platelet Volume 8.5 fL (7.4-10.4); Platelet Count 150 thou/uL (130-400); RBC Distribution Width 13.6 % (11.5-14.5); Red Blood Cell (RBC) Count 2.34 mill/uL (4.70-6.10)
[2021-06-21 05:19] LABS: Anion Gap 19 mmol/L (10-20); BUN (Urea Nitrogen) 86 mg/dL (8.4-25.7); Calc. Creatinine Clearance 7 mL/min (70-130); Calcium 8.3 mg/dL (7.8-10.44); Carbon Dioxide 21 mmol/L (23-31); Chloride 104 mmol/L (98-107); Glucose 152 mg/dL (80-115); Potassium 5.1 mmol/L (3.5-5.1); Sodium 139 mmol/L (136-145)
[2021-06-21] MEDS: hydrALAZINE 20 MG/ML VIAL SLOW IVP PRN ×3 (05:24→10:26)
[2021-06-21] MEDS: Labetalol 100 MG TAB PO SCH ×2 (08:32→20:47)
[2021-06-21] MEDS: NIFEdipine XL 60 MG TAB PO SCH ×2 (08:32→20:47)
[2021-06-21] MEDS: Torsemide 100 MG TAB PO SCH ×2 (08:43→10:28)
[2021-06-21] MEDS ORDERED: NIFEdipine XL 30 MG TAB PO SCH (09:00)
[2021-06-21] MEDS ORDERED: Apixaban 2.5 MG TAB PO SCH (09:00)
[2021-06-21 10:17] LABS: SARS-CoV-2 NAA Rapid Test Not Detected (NotDetected)
[2021-06-21] MEDS ORDERED: Heparin 10,000 UNITS/ 10 ML VIAL ONE (10:27)
[2021-06-21 11:19] LABS: Hep B Core Total Ab Non-Reactive (NonReactive); Hep B Core Total Index 0.06 S/CO (0-0.79)
[2021-06-21 11:20] LABS: HBSAB Concentration Less than 8.00 mIU/mL; HBSAg Index 0.26 S/CO (0-0.99); Hep B Surf AB Non-Reactive (NonReactive); Hep B Surf Ag Non-Reactive S/CO (NonReactive); Hep C IgG Ab Non-Reactive (NonReactive); Hep C Index 0.05 S/CO (0-0.79)
[2021-06-21] MEDS ORDERED: CEFAZOLIN 2 GM in Premix Bag 1 BAG IVPB SCH (11:30)
[2021-06-21] MEDS ORDERED: Zolpidem Tartrate 5 MG TAB PO SCH (23:59)
[2021-06-22 04:21] LABS: #Eosinphils 0.1 thou/uL (0.0-0.7); #Lymphocytes 0.7 thou/uL (1.20-3.40); #Monocytes 0.3 thou/uL (0.11-0.59); #Neutrophils 3.9 thou/uL (1.40-6.50); %Basophils 0.6 % (0.0-1.0); %Eosinophils 1.5 % (0.0-10.0); %Monocytes 5.8 % (0.0-10.0); %Neutrophils 78.1 % (42.0-75.0); Mean Corpuscular HGB CONC 33.1 g/dL (32.0-36.0); Mean Corpuscular Hemoglobin 32.3 pg (27.0-31.0); Mean Corpuscular Volume 97.6 fL (78.0-98.0); Mean Platelet Volume 7.7 fL (7.4-10.4); Platelet Count 146 thou/uL (130-400); RBC Distribution Width 13.6 % (11.5-14.5); Red Blood Cell (RBC) Count 2.16 mill/uL (4.70-6.10)
[2021-06-22 04:48] LABS: Anion Gap 16 mmol/L (10-20); BUN (Urea Nitrogen) 59 mg/dL (8.4-25.7); Calc. Creatinine Clearance 9 mL/min (70-130); Carbon Dioxide 24 mmol/L (23-31); Chloride 105 mmol/L (98-107); Glucose 160 mg/dL (80-115); Potassium 4.6 mmol/L (3.5-5.1); Sodium 140 mmol/L (136-145)
[2021-06-22] MEDS ORDERED: Epoetin (ESRD) 10,000 UNITS/ML VIAL SC SCH (07:15)
[2021-06-22 07:28] LABS: Iron 30 ug/dL (65-175); Iron Binding Capacity, Total 175 mcg/dL (261-462)
[2021-06-22] MEDS: Torsemide 100 MG TAB PO SCH (09:17)
[2021-06-22] MEDS: NIFEdipine XL 60 MG TAB PO SCH ×2 (09:17→21:04)
[2021-06-22] MEDS: Labetalol 100 MG TAB PO SCH ×2 (09:17→21:02)
[2021-06-22] MEDS: Latanoprost 0.005% Ophth Soln 2.5 ml Bottle L EYE SCH (09:18)
[2021-06-22] MEDS ORDERED: Heparin 10,000 UNITS/ 10 ML VIAL ONE (10:31)
[2021-06-22] MEDS ORDERED: Iron, Sodium Ferric Gluconate 125 MG in Sodium Chloride 0.9% 100 ML IVPB SCH (12:00)
[2021-06-22] MEDS: EPOETIN ALFA-EPBX (ESRD) 10,000 UNIT/ML VIAL SC SCH (14:39)
[2021-06-22] MEDS ORDERED: Tuberculin PPD 0.1 ML VIAL I-DERMAL SCH (15:30)
[2021-06-22] MEDS: HumaLOG 300 UNITS/3 ML VIAL SC PRN (16:39)
[2021-06-22] MEDS: rOPINIRole HCl 0.25 MG TAB PO SCH ×2 (21:02→21:03)
[2021-06-23 04:33] LABS: #Eosinphils 0.1 thou/uL (0.0-0.7); #Lymphocytes 0.9 thou/uL (1.20-3.40); #Monocytes 0.4 thou/uL (0.11-0.59); #Neutrophils 3.9 thou/uL (1.40-6.50); %Basophils 0.6 % (0.0-1.0); %Eosinophils 1.7 % (0.0-10.0); %Neutrophils 72.7 % (42.0-75.0); Hemoglobin 6.8 g/dL (14.0-18.0); Mean Corpuscular HGB CONC 32.3 g/dL (32.0-36.0); Mean Corpuscular Volume 95.9 fL (78.0-98.0); Mean Platelet Volume 8.8 fL (7.4-10.4); Platelet Count 147 thou/uL (130-400); Red Blood Cell (RBC) Count 2.19 mill/uL (4.70-6.10); White Blood Cell (WBC) Count 5.3 thou/uL (4.8-10.8)
[2021-06-23 05:00] LABS: ALT (SGPT) Less than 7 U/L (8-55); AST (SGOT) 19 U/L (5-34); Albumin 2.5 g/dL (3.4-4.8); Alkaline Phosphatase 47 U/L (40-110); Anion Gap 13 mmol/L (10-20); BUN (Urea Nitrogen) 28 mg/dL (8.4-25.7); Bilirubin, Total 0.3 mg/dL (0.2-1.2); Calc. Creatinine Clearance 17 mL/min (70-130); Calcium 6.6 mg/dL (7.8-10.44); Carbon Dioxide 26 mmol/L (23-31); Chloride 108 mmol/L (98-107); Globulin 2.1 g/dL (2.4-3.5); Glucose 173 mg/dL (80-115); Potassium 4.5 mmol/L (3.5-5.1); Protein, Total 4.6 g/dL (5.8-8.1); Sodium 142 mmol/L (136-145)
[2021-06-23] MEDS ORDERED: Iron Sucrose Complex 100 MG in Sodium Chloride 0.9% 100 ML IVPB SCH (09:00)
[2021-06-23] MEDS: Labetalol 100 MG TAB PO SCH ×2 (09:12→23:10)
[2021-06-23] MEDS: NIFEdipine XL 60 MG TAB PO SCH ×2 (09:12→22:08)
[2021-06-23] MEDS: Torsemide 100 MG TAB PO SCH (09:18)
[2021-06-23] MEDS: Latanoprost 0.005% Ophth Soln 2.5 ml Bottle L EYE SCH (11:19)
[2021-06-23] MEDS ORDERED: Timolol 0.5% Ophth Soln 5 ml Bottle EA EYE SCH ×2 (12:00→21:00)
[2021-06-23] MEDS ORDERED: Bupivacaine PF 0.5% 30 ML VIAL ONE (12:08)
[2021-06-23] MEDS ORDERED: Sodium Chloride 0.9% 20 ML ONE (12:08)
[2021-06-23] MEDS ORDERED: Heparin 5,000 UNITS/ML VIAL ONE (12:08)
[2021-06-23] MEDS ORDERED: Lidocaine 1% w/Epinephrine 1:100K 20 ML VIAL ONE (12:08)
[2021-06-23] MEDS ORDERED: Heparin 10,000 UNITS/ 10 ML VIAL ONE (12:08)
[2021-06-23] MEDS ORDERED: Protamine Sulfate 50 MG/5 ML VIAL ONE (12:08)
[2021-06-23] MEDS ORDERED: Fentanyl 100 MCG/2 ML VIAL ONE (12:09)
[2021-06-23] MEDS ORDERED: Propofol 500 MG/50 ML VIAL ONE (12:09)
[2021-06-23] MEDS ORDERED: Midazolam HCl 2 mg/2 ml Vial ONE (12:09)
[2021-06-23] MEDS ORDERED: Ondansetron PF 4 MG/2 ML Vial ONE (12:30)
[2021-06-23] MEDS ORDERED: Dexamethasone 20 MG/5 ML VIAL ONE (12:30)
[2021-06-23] MEDS ORDERED: PROPOFOL 200 MG/20 ML VIAL ONE (12:30)
[2021-06-23] MEDS ORDERED: Chloraseptic Spray 180 ml Bottle PO PRN (18:20)
[2021-06-23] MEDS: Iron, Sodium Ferric Gluconate 125 MG in Sodium Chloride 0.9% 100 ML IVPB SCH (18:48)
[2021-06-23 19:03] LABS: Hemoglobin 8.8 g/dL (14.0-18.0)
[2021-06-23] MEDS: Timolol 0.5% Ophth Soln 5 ml Bottle EA EYE SCH (22:08)
[2021-06-23] MEDS: Folic Acid 1 MG TAB PO SCH (22:15)
[2021-06-24] MEDS ORDERED: Timolol 0.5% Ophth Soln 5 ml Bottle EA EYE SCH (09:00)
[2021-06-24] MEDS: Timolol 0.5% Ophth Soln 5 ml Bottle EA EYE SCH ×2 (10:06→21:05)
[2021-06-24] MEDS: Latanoprost 0.005% Ophth Soln 2.5 ml Bottle L EYE SCH (10:06)
[2021-06-24] MEDS: Ascorbic Acid 500 mg Chewable Tablet PO SCH (10:07)
[2021-06-24] MEDS: Labetalol 100 MG TAB PO SCH ×2 (10:08→21:03)
[2021-06-24] MEDS: Folic Acid 1 MG TAB PO SCH ×4 (10:08→21:04)
[2021-06-24] MEDS: NIFEdipine XL 60 MG TAB PO SCH ×2 (10:08→21:04)
[2021-06-24] MEDS: Calcium Carbonate 600 MG + Vit D TAB PO SCH (10:08)
[2021-06-24] MEDS: Vitamin A 10,000 UNITS CAP PO SCH (10:09)
[2021-06-24] MEDS: Torsemide 100 MG TAB PO SCH (10:11)
[2021-06-24] MEDS: HumaLOG 300 UNITS/3 ML VIAL SC PRN (11:51)
[2021-06-24] MEDS ORDERED: Heparin 10,000 UNITS/ 10 ML VIAL ONE (14:48)
[2021-06-24 16:16] LABS: Hemoglobin A1c 5.3 % (4.0-6.0)
[2021-06-24] MEDS ORDERED: READ PPD TEST SITE PO SCH (16:45)
[2021-06-24 18:39] LABS: #Eosinphils 0.1 thou/uL (0.0-0.7); #Monocytes 0.4 thou/uL (0.11-0.59); #Neutrophils 5.7 thou/uL (1.40-6.50); %Basophils 0.5 % (0.0-1.0); %Eosinophils 1.6 % (0.0-10.0); %Lymphocytes 14.3 % (21.0-51.0); %Monocytes 5.9 % (0.0-10.0); %Neutrophils 77.7 % (42.0-75.0); Hemoglobin 8.3 g/dL (14.0-18.0); Mean Corpuscular HGB CONC 33.5 g/dL (32.0-36.0); Mean Corpuscular Hemoglobin 31.4 pg (27.0-31.0); Mean Corpuscular Volume 93.8 fL (78.0-98.0); Mean Platelet Volume 7.6 fL (7.4-10.4); Platelet Count 149 thou/uL (130-400); RBC Distribution Width 14.8 % (11.5-14.5); Red Blood Cell (RBC) Count 2.63 mill/uL (4.70-6.10); White Blood Cell (WBC) Count 7.3 thou/uL (4.8-10.8)
[2021-06-24 19:18] LABS: ALT (SGPT) Less than 7 U/L (8-55); AST (SGOT) 13 U/L (5-34); Albumin 3.2 g/dL (3.4-4.8); Alkaline Phosphatase 54 U/L (40-110); Anion Gap 12 mmol/L (10-20); BUN (Urea Nitrogen) 15 mg/dL (8.4-25.7); Bilirubin, Total 0.2 mg/dL (0.2-1.2); Calc. Creatinine Clearance 24 mL/min (70-130); Calcium 8.7 mg/dL (7.8-10.44); Carbon Dioxide 31 mmol/L (23-31); Chloride 104 mmol/L (98-107); Globulin 2.7 g/dL (2.4-3.5); Glucose 250 mg/dL (80-115); Potassium 3.9 mmol/L (3.5-5.1); Protein, Total 5.9 g/dL (5.8-8.1); Sodium 143 mmol/L (136-145)
[2021-06-24] MEDS: rOPINIRole HCl 0.25 MG TAB PO SCH (21:03)
[2021-06-25] MEDS: hydrALAZINE 20 MG/ML VIAL SLOW IVP PRN (05:26)
[2021-06-25 05:41] LABS: #Basophils 0.1 thou/uL (0.0-0.2); #Eosinphils 0.1 thou/uL (0.0-0.7); #Monocytes 0.5 thou/uL (0.11-0.59); #Neutrophils 5.1 thou/uL (1.40-6.50); %Basophils 0.9 % (0.0-1.0); %Eosinophils 2.1 % (0.0-10.0); %Lymphocytes 14.3 % (21.0-51.0); %Monocytes 7.7 % (0.0-10.0); Hemoglobin 7.1 g/dL (14.0-18.0); Mean Corpuscular Hemoglobin 30.5 pg (27.0-31.0); Mean Corpuscular Volume 95.3 fL (78.0-98.0); Mean Platelet Volume 7.7 fL (7.4-10.4); Platelet Count 156 thou/uL (130-400); RBC Distribution Width 14.4 % (11.5-14.5); Red Blood Cell (RBC) Count 2.31 mill/uL (4.70-6.10); White Blood Cell (WBC) Count 6.8 thou/uL (4.8-10.8)
[2021-06-25 06:03] LABS: ALT (SGPT) Less than 7 U/L (8-55); AST (SGOT) 11 U/L (5-34); Alkaline Phosphatase 57 U/L (40-110); Anion Gap 10 mmol/L (10-20); BUN (Urea Nitrogen) 21 mg/dL (8.4-25.7); Bilirubin, Total 0.2 mg/dL (0.2-1.2); Calc. Creatinine Clearance 20 mL/min (70-130); Calcium 7.9 mg/dL (7.8-10.44); Carbon Dioxide 31 mmol/L (23-31); Chloride 105 mmol/L (98-107); Glucose 141 mg/dL (80-115); Sodium 142 mmol/L (136-145)
[2021-06-25] MEDS: NIFEdipine XL 60 MG TAB PO SCH ×2 (10:19→20:49)
[2021-06-25] MEDS: Vitamin A 10,000 UNITS CAP PO SCH (10:19)
[2021-06-25] MEDS: Folic Acid 1 MG TAB PO SCH ×4 (10:20→20:50)
[2021-06-25] MEDS: Ascorbic Acid 500 mg Chewable Tablet PO SCH (10:21)
[2021-06-25] MEDS: Torsemide 100 MG TAB PO SCH (10:21)
[2021-06-25] MEDS: Labetalol 100 MG TAB PO SCH ×2 (10:21→20:50)
[2021-06-25] MEDS: Calcium Carbonate 600 MG + Vit D TAB PO SCH ×2 (10:21→10:27)
[2021-06-25] MEDS: Timolol 0.5% Ophth Soln 5 ml Bottle EA EYE SCH ×2 (10:22→20:51)
[2021-06-25] MEDS: Latanoprost 0.005% Ophth Soln 2.5 ml Bottle L EYE SCH (10:22)
[2021-06-25] MEDS: HumaLOG 300 UNITS/3 ML VIAL SC PRN ×2 (13:01→17:10)
[2021-06-25] MEDS: rOPINIRole HCl 0.25 MG TAB PO SCH (20:50)
[2021-06-26] MEDS: Ascorbic Acid 500 mg Chewable Tablet PO SCH (07:51)
[2021-06-26] MEDS: Folic Acid 1 MG TAB PO SCH ×4 (07:52→20:56)
[2021-06-26] MEDS: Calcium Carbonate 600 MG + Vit D TAB PO SCH (07:52)
[2021-06-26] MEDS: NIFEdipine XL 60 MG TAB PO SCH ×2 (07:53→20:54)
[2021-06-26] MEDS: Labetalol 100 MG TAB PO SCH ×2 (07:53→20:55)
[2021-06-26] MEDS: Timolol 0.5% Ophth Soln 5 ml Bottle EA EYE SCH ×2 (07:54→20:58)
[2021-06-26] MEDS: Latanoprost 0.005% Ophth Soln 2.5 ml Bottle L EYE SCH (07:54)
[2021-06-26] MEDS: Torsemide 100 MG TAB PO SCH (07:55)
[2021-06-26] MEDS: Vitamin A 10,000 UNITS CAP PO SCH (07:56)
[2021-06-26] MEDS: Iron, Sodium Ferric Gluconate 125 MG in Sodium Chloride 0.9% 100 ML IVPB SCH (14:55)
[2021-06-26] MEDS ORDERED: Heparin 10,000 UNITS/ 10 ML VIAL ONE (15:07)
[2021-06-26 17:06] LABS: #Eosinphils 0.2 thou/uL (0.0-0.7); #Lymphocytes 0.9 thou/uL (1.20-3.40); #Monocytes 0.5 thou/uL (0.11-0.59); #Neutrophils 3.9 thou/uL (1.40-6.50); %Basophils 0.4 % (0.0-1.0); %Eosinophils 3.1 % (0.0-10.0); %Lymphocytes 16.1 % (21.0-51.0); %Monocytes 8.7 % (0.0-10.0); %Neutrophils 71.8 % (42.0-75.0); Hemoglobin 7.4 g/dL (14.0-18.0); Mean Corpuscular HGB CONC 32.9 g/dL (32.0-36.0); Mean Corpuscular Hemoglobin 31.2 pg (27.0-31.0); Mean Corpuscular Volume 94.6 fL (78.0-98.0); Mean Platelet Volume 7.5 fL (7.4-10.4); Platelet Count 166 thou/uL (130-400); RBC Distribution Width 14.1 % (11.5-14.5); Red Blood Cell (RBC) Count 2.38 mill/uL (4.70-6.10); White Blood Cell (WBC) Count 5.5 thou/uL (4.8-10.8)
[2021-06-26] MEDS: HumaLOG 300 UNITS/3 ML VIAL SC PRN (17:37)
[2021-06-26 17:52] LABS: Chloride 101 mmol/L (98-107); Sodium 138 mmol/L (136-145)
[2021-06-26 17:53] LABS: Calcium 7.8 mg/dL (7.8-10.44); Glucose 286 mg/dL (80-115)
[2021-06-26 17:54] LABS: Globulin 2.3 g/dL (2.4-3.5); Protein, Total 5.3 g/dL (5.8-8.1)
[2021-06-26 17:55] LABS: Anion Gap 11 mmol/L (10-20); Bilirubin, Total 0.2 mg/dL (0.2-1.2); Carbon Dioxide 30 mmol/L (23-31)
[2021-06-26 17:56] LABS: Alkaline Phosphatase 61 U/L (40-110)
[2021-06-26 17:57] LABS: Calc. Creatinine Clearance 27 mL/min (70-130)
[2021-06-26 17:58] LABS: BUN (Urea Nitrogen) 17 mg/dL (8.4-25.7)
[2021-06-26 17:59] LABS: ALT (SGPT) Less than 7 U/L (8-55); AST (SGOT) 15 U/L (5-34)
[2021-06-26] MEDS: rOPINIRole HCl 0.25 MG TAB PO SCH (20:55)
[2021-06-27 07:50] LABS: #Eosinphils 0.2 thou/uL (0.0-0.7); #Lymphocytes 1.1 thou/uL (1.20-3.40); #Monocytes 0.5 thou/uL (0.11-0.59); #Neutrophils 4.2 thou/uL (1.40-6.50); %Basophils 0.6 % (0.0-1.0); %Eosinophils 3.2 % (0.0-10.0); %Lymphocytes 18.3 % (21.0-51.0); %Monocytes 8.7 % (0.0-10.0); %Neutrophils 69.2 % (42.0-75.0); Mean Corpuscular HGB CONC 32.7 g/dL (32.0-36.0); Mean Corpuscular Hemoglobin 31.2 pg (27.0-31.0); Mean Corpuscular Volume 95.3 fL (78.0-98.0); Mean Platelet Volume 7.5 fL (7.4-10.4); Platelet Count 171 thou/uL (130-400); RBC Distribution Width 14.1 % (11.5-14.5); Red Blood Cell (RBC) Count 2.26 mill/uL (4.70-6.10)
[2021-06-27 08:03] LABS: ALT (SGPT) Less than 7 U/L (8-55); AST (SGOT) 18 U/L (5-34); Albumin 2.9 g/dL (3.4-4.8); Alkaline Phosphatase 70 U/L (40-110); Anion Gap 12 mmol/L (10-20); BUN (Urea Nitrogen) 33 mg/dL (8.4-25.7); Bilirubin, Total 0.2 mg/dL (0.2-1.2); Calc. Creatinine Clearance 20 mL/min (70-130); Calcium 7.7 mg/dL (7.8-10.44); Carbon Dioxide 30 mmol/L (23-31); Chloride 104 mmol/L (98-107); Globulin 2.2 g/dL (2.4-3.5); Glucose 114 mg/dL (80-115); Potassium 4.2 mmol/L (3.5-5.1); Protein, Total 5.1 g/dL (5.8-8.1); Sodium 142 mmol/L (136-145)
[2021-06-27] MEDS: Vitamin A 10,000 UNITS CAP PO SCH (08:20)
[2021-06-27] MEDS: Timolol 0.5% Ophth Soln 5 ml Bottle EA EYE SCH ×2 (08:20→21:38)
[2021-06-27] MEDS: Torsemide 100 MG TAB PO SCH (08:21)
[2021-06-27] MEDS: Ascorbic Acid 500 mg Chewable Tablet PO SCH (08:22)
[2021-06-27] MEDS: Labetalol 100 MG TAB PO SCH ×2 (08:22→21:36)
[2021-06-27] MEDS: NIFEdipine XL 60 MG TAB PO SCH ×2 (08:22→21:37)
[2021-06-27] MEDS: Calcium Carbonate 600 MG + Vit D TAB PO SCH (08:23)
[2021-06-27] MEDS: Latanoprost 0.005% Ophth Soln 2.5 ml Bottle L EYE SCH (08:23)
[2021-06-27] MEDS: Folic Acid 1 MG TAB PO SCH ×4 (08:25→21:37)
[2021-06-27] MEDS: HumaLOG 300 UNITS/3 ML VIAL SC PRN (12:10)
[2021-06-27] MEDS: rOPINIRole HCl 0.25 MG TAB PO SCH (21:37)
[2021-06-28] MEDS: Ascorbic Acid 500 mg Chewable Tablet PO SCH (08:19)
[2021-06-28] MEDS: NIFEdipine XL 60 MG TAB PO SCH ×2 (08:21→20:58)
[2021-06-28] MEDS: Vitamin A 10,000 UNITS CAP PO SCH (08:21)
[2021-06-28] MEDS: Folic Acid 1 MG TAB PO SCH ×4 (08:22→20:57)
[2021-06-28] MEDS: Torsemide 100 MG TAB PO SCH (08:22)
[2021-06-28] MEDS: Labetalol 100 MG TAB PO SCH ×2 (08:23→20:57)
[2021-06-28] MEDS: Calcium Carbonate 600 MG + Vit D TAB PO SCH (08:24)
[2021-06-28] MEDS: Latanoprost 0.005% Ophth Soln 2.5 ml Bottle L EYE SCH (08:25)
[2021-06-28] MEDS: Timolol 0.5% Ophth Soln 5 ml Bottle EA EYE SCH ×2 (08:26→20:58)
[2021-06-28] MEDS: HumaLOG 300 UNITS/3 ML VIAL SC PRN (12:10)
[2021-06-28] MEDS: Iron, Sodium Ferric Gluconate 125 MG in Sodium Chloride 0.9% 100 ML IVPB SCH (12:45)
[2021-06-28 13:23] LABS: #Basophils 0.1 thou/uL (0.0-0.2); #Eosinphils 0.2 thou/uL (0.0-0.7); #Lymphocytes 0.9 thou/uL (1.20-3.40); #Monocytes 0.4 thou/uL (0.11-0.59); #Neutrophils 4.1 thou/uL (1.40-6.50); %Eosinophils 3.8 % (0.0-10.0); %Lymphocytes 16.1 % (21.0-51.0); %Monocytes 7.3 % (0.0-10.0); %Neutrophils 71.8 % (42.0-75.0); Hemoglobin 7.2 g/dL (14.0-18.0); Mean Corpuscular HGB CONC 32.4 g/dL (32.0-36.0); Mean Corpuscular Hemoglobin 31.2 pg (27.0-31.0); Mean Corpuscular Volume 96.1 fL (78.0-98.0); Mean Platelet Volume 7.2 fL (7.4-10.4); Platelet Count 168 thou/uL (130-400); RBC Distribution Width 14.3 % (11.5-14.5); White Blood Cell (WBC) Count 5.7 thou/uL (4.8-10.8)
[2021-06-28 14:27] LABS: ALT (SGPT) 9 U/L (8-55); AST (SGOT) 22 U/L (5-34); Albumin 3.2 g/dL (3.4-4.8); Alkaline Phosphatase 63 U/L (40-110); Anion Gap 11 mmol/L (10-20); BUN (Urea Nitrogen) 57 mg/dL (8.4-25.7); Bilirubin, Total 0.2 mg/dL (0.2-1.2); Calc. Creatinine Clearance 14 mL/min (70-130); Carbon Dioxide 31 mmol/L (23-31); Chloride 100 mmol/L (98-107); Globulin 2.1 g/dL (2.4-3.5); Glucose 121 mg/dL (80-115); Potassium 4.2 mmol/L (3.5-5.1); Protein, Total 5.3 g/dL (5.8-8.1); Sodium 138 mmol/L (136-145)
[2021-06-28] MEDS: rOPINIRole HCl 0.25 MG TAB PO SCH (20:58)
[2021-06-29] MEDS: Ascorbic Acid 500 mg Chewable Tablet PO SCH (08:15)
[2021-06-29] MEDS: Folic Acid 1 MG TAB PO SCH ×4 (08:17→20:25)
[2021-06-29] MEDS: Vitamin A 10,000 UNITS CAP PO SCH (08:17)
[2021-06-29] MEDS: Calcium Carbonate 600 MG + Vit D TAB PO SCH (08:17)
[2021-06-29] MEDS: Labetalol 100 MG TAB PO SCH ×2 (08:18→20:26)
[2021-06-29] MEDS: Torsemide 100 MG TAB PO SCH (08:20)
[2021-06-29] MEDS: NIFEdipine XL 60 MG TAB PO SCH ×2 (08:20→20:25)
[2021-06-29] MEDS: Timolol 0.5% Ophth Soln 5 ml Bottle EA EYE SCH ×2 (08:21→20:28)
[2021-06-29] MEDS: Latanoprost 0.005% Ophth Soln 2.5 ml Bottle L EYE SCH (08:21)
[2021-06-29 10:48] VITALS: BMI 19.5
[2021-06-29] MEDS: EPOETIN ALFA-EPBX (ESRD) 10,000 UNIT/ML VIAL SC SCH (12:13)
[2021-06-29 12:31] LABS: #Basophils 0.1 thou/uL (0.0-0.2); #Eosinphils 0.2 thou/uL (0.0-0.7); #Lymphocytes 0.7 thou/uL (1.20-3.40); #Monocytes 0.5 thou/uL (0.11-0.59); %Basophils 0.8 % (0.0-1.0); %Eosinophils 2.6 % (0.0-10.0); %Lymphocytes 11.3 % (21.0-51.0); %Monocytes 8.1 % (0.0-10.0); %Neutrophils 77.1 % (42.0-75.0); Hemoglobin 6.7 g/dL (14.0-18.0); Mean Corpuscular HGB CONC 32.4 g/dL (32.0-36.0); Mean Corpuscular Hemoglobin 31.2 pg (27.0-31.0); Mean Corpuscular Volume 96.2 fL (78.0-98.0); Mean Platelet Volume 7.5 fL (7.4-10.4); Platelet Count 184 thou/uL (130-400); RBC Distribution Width 14.7 % (11.5-14.5); Red Blood Cell (RBC) Count 2.14 mill/uL (4.70-6.10); White Blood Cell (WBC) Count 6.4 thou/uL (4.8-10.8)
[2021-06-29 13:16] LABS: ALT (SGPT) 10 U/L (8-55); AST (SGOT) 19 U/L (5-34); Albumin 2.9 g/dL (3.4-4.8); Alkaline Phosphatase 63 U/L (40-110); BUN (Urea Nitrogen) 35 mg/dL (8.4-25.7); Bilirubin, Total 0.2 mg/dL (0.2-1.2); Calc. Creatinine Clearance 20 mL/min (70-130); Carbon Dioxide 34 mmol/L (23-31); Chloride 102 mmol/L (98-107); Globulin 2.2 g/dL (2.4-3.5); Glucose 169 mg/dL (80-115); Potassium 4.2 mmol/L (3.5-5.1); Protein, Total 5.1 g/dL (5.8-8.1); Sodium 138 mmol/L (136-145)
[2021-06-29 13:33] LABS: Anion Gap 6 mmol/L (10-20)
[2021-06-29 13:38] LABS: SARS-CoV-2 PCR by NAA Not Detected (NotDetected)
[2021-06-29] MEDS: HumaLOG 300 UNITS/3 ML VIAL SC PRN (16:33)
[2021-06-29] MEDS: rOPINIRole HCl 0.25 MG TAB PO SCH (20:25)
[2021-06-29] MEDS ORDERED: Benzonatate 100 MG CAP PO PRN (22:10)
[2021-06-30] MEDS: Guaifenesin DM 100-10/5 ML UDCUP PO PRN ×2 (01:35→16:39)
[2021-06-30 04:16] VITALS: TEMP 98.7
[2021-06-30 05:52] LABS: #Eosinphils 0.2 thou/uL (0.0-0.7); #Lymphocytes 0.7 thou/uL (1.20-3.40); #Monocytes 0.6 thou/uL (0.11-0.59); #Neutrophils 6.7 thou/uL (1.40-6.50); %Basophils 0.2 % (0.0-1.0); %Eosinophils 2.1 % (0.0-10.0); %Lymphocytes 8.2 % (21.0-51.0); %Monocytes 7.7 % (0.0-10.0); %Neutrophils 81.8 % (42.0-75.0); Hemoglobin 6.4 g/dL (14.0-18.0); Mean Corpuscular HGB CONC 31.7 g/dL (32.0-36.0); Mean Corpuscular Hemoglobin 30.6 pg (27.0-31.0); Mean Corpuscular Volume 96.6 fL (78.0-98.0); Mean Platelet Volume 7.6 fL (7.4-10.4); Platelet Count 176 thou/uL (130-400); RBC Distribution Width 14.6 % (11.5-14.5); Red Blood Cell (RBC) Count 2.08 mill/uL (4.70-6.10); White Blood Cell (WBC) Count 8.2 thou/uL (4.8-10.8)
[2021-06-30 06:18] LABS: ALT (SGPT) 19 U/L (8-55); AST (SGOT) 27 U/L (5-34); Alkaline Phosphatase 66 U/L (40-110); Anion Gap 12 mmol/L (10-20); BUN (Urea Nitrogen) 50 mg/dL (8.4-25.7); Bilirubin, Total 0.3 mg/dL (0.2-1.2); Calc. Creatinine Clearance 16 mL/min (70-130); Calcium 7.4 mg/dL (7.8-10.44); Carbon Dioxide 29 mmol/L (23-31); Chloride 101 mmol/L (98-107); Glucose 158 mg/dL (80-115); Potassium 4.7 mmol/L (3.5-5.1); Sodium 137 mmol/L (136-145)
[2021-06-30] MEDS: Labetalol 100 MG TAB PO SCH (08:03)
[2021-06-30] MEDS: Folic Acid 1 MG TAB PO SCH ×3 (08:03→16:39)
[2021-06-30] MEDS: NIFEdipine XL 60 MG TAB PO SCH (08:04)
[2021-06-30 08:15] VITALS: BP 126/56
[2021-06-30] MEDS ORDERED: Heparin 10,000 UNITS/ 10 ML VIAL ONE (09:41)
[2021-06-30] MEDS: Iron, Sodium Ferric Gluconate 125 MG in Sodium Chloride 0.9% 100 ML IVPB SCH (13:01)
[2021-06-30] MEDS: Ascorbic Acid 500 mg Chewable Tablet PO SCH (13:02)
[2021-06-30] MEDS: Calcium Carbonate 600 MG + Vit D TAB PO SCH (13:03)
[2021-06-30] MEDS: Latanoprost 0.005% Ophth Soln 2.5 ml Bottle L EYE SCH (13:03)
[2021-06-30] MEDS: Torsemide 100 MG TAB PO SCH (13:04)
[2021-06-30] MEDS: Timolol 0.5% Ophth Soln 5 ml Bottle EA EYE SCH (13:04)
[2021-06-30] MEDS: Vitamin A 10,000 UNITS CAP PO SCH (13:05)
== END 2021-06-30 19:15 | disposition home or self-care (01) | DRG 674 ==
LOC: ERS 16:44 → 2NO 19:53 → T4-A 06-25 15:15
PROVIDERS: ADMIT Student in an Organized Health Care Education/Training Program; ATTEND Family Medicine
PROC: 02HV33Z Insertion of Infusion Device into Superior Vena Cava, Percutaneous Approach (ICD-10-PCS; 2021-06-21)
PROC: 5A1D70Z Performance of Urinary Filtration, Intermittent, Less than 6 Hours Per Day (ICD-10-PCS; 2021-06-21)
PROC: 30233N1 Transfusion of Nonautologous Red Blood Cells into Peripheral Vein, Percutaneous Approach (ICD-10-PCS; 2021-06-22)
PROC: 031C0ZF Bypass Left Radial Artery to Lower Arm Vein, Open Approach (ICD-10-PCS; principal; 2021-06-23)
PROC: 0JH60XZ Insertion of Tunneled Vascular Access Device into Chest Subcutaneous Tissue and Fascia, Open Approach (ICD-10-PCS; 2021-06-23)
PROC: 02HV33Z Insertion of Infusion Device into Superior Vena Cava, Percutaneous Approach (ICD-10-PCS; 2021-06-23)
PROC: B548ZZA Ultrasonography of Superior Vena Cava, Guidance (ICD-10-PCS; 2021-06-23)
PROC: B5181ZA Fluoroscopy of Superior Vena Cava using Low Osmolar Contrast, Guidance (ICD-10-PCS; 2021-06-23)
DX: N17.9 Acute kidney failure, unspecified (principal); J90 Pleural effusion, not elsewhere classified; I12.0 Hypertensive chronic kidney disease with stage 5 chronic kidney disease or end stage renal disease; D62 Acute posthemorrhagic anemia; E11.22 Type 2 diabetes mellitus with diabetic chronic kidney disease; N18.6 End stage renal disease; E87.5 Hyperkalemia; D63.1 Anemia in chronic kidney disease; Z20.822 Contact with and (suspected) exposure to COVID-19; F32.9 Major depressive disorder, single episode, unspecified; R22.1 Localized swelling, mass and lump, neck; G25.81 Restless legs syndrome; M06.9 Rheumatoid arthritis, unspecified; Z88.5 Allergy status to narcotic agent; Z79.4 Long term (current) use of insulin; Z79.01 Long term (current) use of anticoagulants; Z79.899 Other long term (current) drug therapy; Z98.890 Other specified postprocedural states
CPT/HCPCS: 36415; 36416; 36430; 71045; 80048; 80053; 80307; 82728; 83036; 83540; 83550; 83735; 84443; 85025; 86580; 86704; 86706; 86803; 86850; 86900; 86901; 87324; 87340; 87449; 90935; 93005; C1751; C1752; G0257; J0360; J0690; J1100; J1642; J1644; J1815; J2250; J2405; J2704; J2720; J2916; J3010; J3490; P9016; Q5105; S0020; U0002; U0003; U0005

== ENCOUNTER 2023-05-26 17:33 | Emergency (ER) | payer BC, MEDICARE ==
[2023-05-26 18:25] LABS: #Eosinphils 0.1 thou/uL (0.0-0.7); #Monocytes 0.6 thou/uL (0.11-0.59); #Neutrophils 6.2 thou/uL (1.40-6.50); %Basophils 0.4 % (0.0-1.0); %Eosinophils 1.2 % (0.0-10.0); %Lymphocytes 13.2 % (21.0-51.0); %Monocytes 7.9 % (0.0-10.0); %Neutrophils 76.8 % (42.0-75.0); Hematocrit 25.6 % (42.0-52.0); Hemoglobin 8.8 g/dL (14.0-18.0); Mean Corpuscular HGB CONC 34.4 g/dL (32.0-36.0); Mean Corpuscular Hemoglobin 34.1 pg (27.0-31.0); Mean Corpuscular Volume 99.2 fl (78.0-98.0); Mean Platelet Volume 11.3 fL (7.4-10.4); RBC Distribution Width 14.1 % (11.5-14.5); Red Blood Cell (RBC) Count 2.58 mill/uL (4.70-6.10)
[2023-05-26 18:26] LABS: Platelet Count 91 10x3/uL (130-400)
[2023-05-26 18:48] LABS: ALT (SGPT) 9 U/L (8-55); AST (SGOT) 23 U/L (5-34); Albumin 3.5 g/dL (3.4-4.8); Alkaline Phosphatase 124 U/L (40-110); Anion Gap 21 mmol/L (10-20); BUN (Urea Nitrogen) 40 mg/dL (8.4-25.7); Bilirubin, Total 0.7 mg/dL (0.2-1.2); Calc. Creatinine Clearance 0 mL/min (70-130); Calcium 9.5 mg/dL (7.8-10.44); Carbon Dioxide 28 mmol/L (23-31); Chloride 93 mmol/L (98-107); Estimated GFR 12; Glucose 275 mg/dL (83-110); Magnesium 2.1 mg/dL (1.6-2.6); Potassium 3.3 mmol/L (3.5-5.1); Protein, Total 6.5 g/dL (5.8-8.1); Sodium 139 mmol/L (136-145)
== END 2023-05-26 19:50 | disposition home or self-care (01) ==
LOC: ERS 17:33
DX: R53.83 Other fatigue (principal); E11.40 Type 2 diabetes mellitus with diabetic neuropathy, unspecified; I10 Essential (primary) hypertension
CPT/HCPCS: 71045; 80053; 83735; 84443; 84484; 85025; 86850; 86900; 86901; 93005

== ENCOUNTER 2023-07-09 16:10 | Emergency (ER) | payer MEDICARE, BC ==
[2023-07-09] MEDS ORDERED: Ketorolac Tromethamine 30 MG/ML VIAL ONE (16:46)
== END 2023-07-09 19:43 | disposition home or self-care (01) ==
LOC: ERS 16:10
DX: S22.081D Stable burst fracture of T11-T12 vertebra, subsequent encounter for fracture with routine healing (principal); E11.9 Type 2 diabetes mellitus without complications; I10 Essential (primary) hypertension; Z79.899 Other long term (current) drug therapy
CPT/HCPCS: 72128; 72131; 93005; J1885

== ENCOUNTER 2023-07-10 22:33 | Inpatient (IN) | payer MEDICARE, BC ==
[2023-07-10] MEDS ORDERED: Furosemide 40 MG/4 ML VIAL ONE (23:18)
[2023-07-10] MEDS ORDERED: Nitroglycerin 0.4 MG TAB 1 EACH ONE (23:18)
[2023-07-10 23:21] LABS: #Eosinphils 0.2 thou/uL (0.0-0.7); #Monocytes 0.8 thou/uL (0.11-0.59); #Neutrophils 4.6 thou/uL (1.40-6.50); %Basophils 0.3 % (0.0-1.0); %Eosinophils 2.2 % (0.0-10.0); %Monocytes 11.5 % (0.0-10.0); %Neutrophils 66.7 % (42.0-75.0); Hematocrit 21.8 % (42.0-52.0); Mean Corpuscular HGB CONC 32.1 g/dL (32.0-36.0); Mean Corpuscular Hemoglobin 32.4 pg (27.0-31.0); Mean Corpuscular Volume 100.9 fl (78.0-98.0); Mean Platelet Volume 10.3 fL (7.4-10.4); RBC Distribution Width 14.6 % (11.5-14.5); Red Blood Cell (RBC) Count 2.16 mill/uL (4.70-6.10); White Blood Cell (WBC) Count 6.9 10x3/uL (4.8-10.8)
[2023-07-10 23:23] LABS: Platelet Count 63 10x3/uL (130-400)
[2023-07-10 23:29] LABS: Analyzer IN Cardio ER; Base Excess 3.5 mEq/L (-2.0 to +3.0); Calcium, Ionized (venous) 1.08 mmol/L (1.16-1.32); Chloride (VBG) 94 mmol/L (98-106); Hematocrit-VBG 24 % (42.0-52.0); Hemoglobin (Hb) 8.1 g/dL (12.6-17.4); Potassium (VBG) 3.55 mmol/L (3.70-5.30); Sodium 135 mmol/L (133-146)
[2023-07-10 23:45] LABS: ALT (SGPT) 12 U/L (8-55); AST (SGOT) 20 U/L (5-34); Albumin 3.7 g/dL (3.4-4.8); Alkaline Phosphatase 172 U/L (40-110); Anion Gap 20 mmol/L (10-20); BUN (Urea Nitrogen) 29 mg/dL (8.4-25.7); Bilirubin, Total 0.9 mg/dL (0.2-1.2); Calc. Creatinine Clearance 0 mL/min (70-130); Carbon Dioxide 28 mmol/L (23-31); Chloride 93 mmol/L (98-107); Estimated GFR 23; Globulin 2.7 g/dL (2.4-3.5); Glucose 235 mg/dL (83-110); Potassium 3.6 mmol/L (3.5-5.1); Protein, Total 6.4 g/dL (5.8-8.1); Sodium 137 mmol/L (136-145); Troponin I 0.021 ng/mL (< 0.028)
[2023-07-11] MEDS ORDERED: Azithromycin 500 MG VIAL ONE (00:08)
[2023-07-11] MEDS ORDERED: Cefepime 2 GM VIAL ONE (00:15)
[2023-07-11] MEDS ORDERED: Calcium Carbonate 500 MG ChewTAB PO PRN (01:36)
[2023-07-11] MEDS ORDERED: HumaLOG 300 UNITS/3 ML VIAL SC PRN (01:38)
[2023-07-11] MEDS ORDERED: Dextrose 5% in Water 1,000 ML IV PRN (01:38)
[2023-07-11] MEDS ORDERED: Dextrose 50% Abboject 50 ML SYRINGE SLOW IVP PRN (01:38)
[2023-07-11] MEDS ORDERED: Glucagon 1 MG/ML KIT IM PRN (01:38)
[2023-07-11] MEDS ORDERED: rOPINIRole HCl 0.5 MG TAB PO SCH (02:45)
[2023-07-11 03:42] LABS: #Monocytes 0.1 thou/uL (0.11-0.59); #Neutrophils 6.2 thou/uL (1.40-6.50); %Basophils 0.2 % (0.0-1.0); %Lymphocytes 1.4 % (21.0-51.0); %Monocytes 1.5 % (0.0-10.0); %Neutrophils 96.6 % (42.0-75.0); Hematocrit 20.8 % (42.0-52.0); Hemoglobin 6.7 g/dL (14.0-18.0); Mean Corpuscular HGB CONC 32.2 g/dL (32.0-36.0); Mean Corpuscular Hemoglobin 32.2 pg (27.0-31.0); Mean Platelet Volume 10.6 fL (7.4-10.4); RBC Distribution Width 14.5 % (11.5-14.5); Red Blood Cell (RBC) Count 2.08 mill/uL (4.70-6.10); White Blood Cell (WBC) Count 6.5 10x3/uL (4.8-10.8)
[2023-07-11 03:45] LABS: Platelet Count 59 10x3/uL (130-400)
[2023-07-11 04:03] LABS: Anion Gap 22 mmol/L (10-20); BUN (Urea Nitrogen) 35 mg/dL (8.4-25.7); Calc. Creatinine Clearance 18 mL/min (70-130); Calcium 9.3 mg/dL (7.8-10.44); Carbon Dioxide 23 mmol/L (23-31); Chloride 93 mmol/L (98-107); Estimated GFR 21; Potassium 3.9 mmol/L (3.5-5.1); Sodium 134 mmol/L (136-145)
[2023-07-11 04:13] LABS: Glucose 411 mg/dL (83-110)
[2023-07-11] MEDS: HumaLOG 300 UNITS/3 ML VIAL SC PRN ×3 (04:28→14:09)
[2023-07-11 05:44] LABS: Troponin I 0.035 ng/mL (< 0.028)
[2023-07-11] MEDS ORDERED: Famotidine 20 MG TAB PO SCH (09:00)
[2023-07-11] MEDS: Amlodipine 5 MG TAB PO SCH ×2 (09:28→21:11)
[2023-07-11 12:03] LABS: Iron 36 ug/dL (65-175); Iron Binding Capacity, Total 161 mcg/dL (261-462)
[2023-07-11] MEDS ORDERED: rOPINIRole HCl 0.25 MG TAB PO PRN (13:41)
[2023-07-11] MEDS ORDERED: Iopamidol-370 76% 500 ML MDV (1 ML CHARGE) ONE (16:07)
[2023-07-11] MEDS ORDERED: rOPINIRole HCl 0.25 MG TAB PO SCH (21:00)
[2023-07-11] MEDS: rOPINIRole HCl 0.5 MG TAB PO SCH (21:12)
[2023-07-11] MEDS: HumuLIN 70/30 100 Unit/ ml 10 ml Vial SC SCH (21:12)
[2023-07-12] MEDS: rOPINIRole HCl 0.5 MG TAB PO PRN ×2 (02:18→14:56)
[2023-07-12] MEDS ORDERED: Epoetin (ESRD) 10,000 UNITS/ML VIAL IVP SCH (09:00)
[2023-07-12 09:54] LABS: #Eosinphils 0.1 thou/uL (0.0-0.7); #Monocytes 1.3 thou/uL (0.11-0.59); #Neutrophils 11.3 thou/uL (1.40-6.50); %Basophils 0.2 % (0.0-1.0); %Eosinophils 0.4 % (0.0-10.0); %Lymphocytes 4.8 % (21.0-51.0); %Monocytes 9.5 % (0.0-10.0); %Neutrophils 84.7 % (42.0-75.0); Hematocrit 24.9 % (42.0-52.0); Hemoglobin 8.1 g/dL (14.0-18.0); Mean Corpuscular HGB CONC 32.5 g/dL (32.0-36.0); Mean Corpuscular Volume 98.4 fl (78.0-98.0); Mean Platelet Volume 10.9 fL (7.4-10.4); RBC Distribution Width 15.8 % (11.5-14.5); Red Blood Cell (RBC) Count 2.53 mill/uL (4.70-6.10); White Blood Cell (WBC) Count 13.4 10x3/uL (4.8-10.8)
[2023-07-12 09:59] LABS: Platelet Count 78 10x3/uL (130-400)
[2023-07-12 10:12] LABS: Anion Gap 17 mmol/L (10-20); BUN (Urea Nitrogen) 47 mg/dL (8.4-25.7); Calc. Creatinine Clearance 16 mL/min (70-130); Calcium 9.3 mg/dL (7.8-10.44); Carbon Dioxide 30 mmol/L (23-31); Chloride 94 mmol/L (98-107); Estimated GFR 20; Glucose 126 mg/dL (83-110); Sodium 137 mmol/L (136-145)
[2023-07-12] MEDS ORDERED: Polyethylene Glycol 3350 17 GM Packet PO SCH (13:45)
[2023-07-12] MEDS: Amlodipine 5 MG TAB PO SCH ×2 (14:31→21:15)
[2023-07-12] MEDS: HumuLIN 70/30 100 Unit/ ml 10 ml Vial SC SCH (14:32)
[2023-07-12] MEDS: rOPINIRole HCl 0.5 MG TAB PO SCH (21:14)
[2023-07-12] MEDS: Senokot S 8.6-50 MG TAB PO SCH (21:14)
[2023-07-12] MEDS: Folic Acid/Vit B Comp W-C PO SCH (21:15)
[2023-07-12] MEDS ORDERED: Mineral Oil ENEMA PR SCH (21:30)
[2023-07-12] MEDS ORDERED: Milk Of Magnesia 30 ML UDCUP PO PRN (22:22)
[2023-07-12] MEDS ORDERED: Fleet Saline Enema 133 ML BOT PR SCH (22:45)
[2023-07-12] MEDS: Bisacodyl 10 MG SUPP PR PRN ×2 (23:08→23:34)
[2023-07-13] MEDS: Ipratropium/Albuterol 3 ML NEB NEB SCH ×5 (00:45→19:14)
[2023-07-13] MEDS: Labetalol HCl 100 MG/20 ML VIAL SLOW IVP PRN (00:54)
[2023-07-13 04:03] LABS: #Eosinphils 0.2 thou/uL (0.0-0.7); #Monocytes 1.1 thou/uL (0.11-0.59); #Neutrophils 10.5 thou/uL (1.40-6.50); %Basophils 0.2 % (0.0-1.0); %Eosinophils 1.2 % (0.0-10.0); %Lymphocytes 5.4 % (21.0-51.0); %Monocytes 8.5 % (0.0-10.0); %Neutrophils 84.2 % (42.0-75.0); Hematocrit 27.7 % (42.0-52.0); Hemoglobin 9.2 g/dL (14.0-18.0); Mean Corpuscular HGB CONC 33.2 g/dL (32.0-36.0); Mean Corpuscular Hemoglobin 31.8 pg (27.0-31.0); Mean Corpuscular Volume 95.8 fl (78.0-98.0); Mean Platelet Volume 11.3 fL (7.4-10.4); RBC Distribution Width 16.6 % (11.5-14.5); Red Blood Cell (RBC) Count 2.89 mill/uL (4.70-6.10); White Blood Cell (WBC) Count 12.4 10x3/uL (4.8-10.8)
[2023-07-13 04:22] LABS: Platelet Count 73 10x3/uL (130-400)
[2023-07-13 04:23] LABS: Anion Gap 18 mmol/L (10-20); BUN (Urea Nitrogen) 42 mg/dL (8.4-25.7); Calc. Creatinine Clearance 20 mL/min (70-130); Calcium 9.1 mg/dL (7.8-10.44); Carbon Dioxide 29 mmol/L (23-31); Chloride 96 mmol/L (98-107); Estimated GFR 28; Glucose 237 mg/dL (83-110); Potassium 4.1 mmol/L (3.5-5.1); Sodium 139 mmol/L (136-145)
[2023-07-13] MEDS: Senokot S 8.6-50 MG TAB PO SCH ×2 (07:58→21:56)
[2023-07-13] MEDS: Polyethylene Glycol 3350 17 GM Packet PO SCH (07:58)
[2023-07-13] MEDS: Amlodipine 5 MG TAB PO SCH ×2 (07:58→21:55)
[2023-07-13] MEDS ORDERED: Insulin NPH Human Isophane 100 UNITS/ML (10 ML VIAL) SC SCH (09:00)
[2023-07-13] MEDS ORDERED: VANC IVPB PRN (09:29)
[2023-07-13] MEDS ORDERED: Vancomycin Hemodialysis Sliding Scale FS SCH (09:45)
[2023-07-13] MEDS ORDERED: Vancomycin 1 GM in Premix Bag 1 BAG IVPB SCH (10:00)
[2023-07-13] MEDS: HumaLOG 300 UNITS/3 ML VIAL SC PRN (11:33)
[2023-07-13] MEDS: Bisacodyl 10 MG SUPP PR PRN (13:09)
[2023-07-13] MEDS: Cefepime 1 GM in Sodium Chloride 0.9% 100 ML IVPB SCH (16:17)
[2023-07-13] MEDS: Folic Acid/Vit B Comp W-C PO SCH (21:55)
[2023-07-13] MEDS: rOPINIRole HCl 0.5 MG TAB PO SCH ×2 (21:56→22:30)
[2023-07-14 04:10] LABS: #Eosinphils 0.1 thou/uL (0.0-0.7); #Monocytes 0.6 thou/uL (0.11-0.59); #Neutrophils 8.6 thou/uL (1.40-6.50); %Basophils 0.2 % (0.0-1.0); %Eosinophils 1.3 % (0.0-10.0); %Lymphocytes 7.2 % (21.0-51.0); %Monocytes 5.6 % (0.0-10.0); %Neutrophils 84.8 % (42.0-75.0); Hematocrit 28.1 % (42.0-52.0); Hemoglobin 9.3 g/dL (14.0-18.0); Mean Corpuscular HGB CONC 33.1 g/dL (32.0-36.0); Mean Corpuscular Hemoglobin 31.5 pg (27.0-31.0); Mean Corpuscular Volume 95.3 fl (78.0-98.0); Mean Platelet Volume 11.7 fL (7.4-10.4); RBC Distribution Width 15.6 % (11.5-14.5); Red Blood Cell (RBC) Count 2.95 mill/uL (4.70-6.10); White Blood Cell (WBC) Count 10.1 10x3/uL (4.8-10.8)
[2023-07-14 04:37] LABS: Albumin 3.2 g/dL (3.4-4.8); Anion Gap 17 mmol/L (10-20); BUN (Urea Nitrogen) 73 mg/dL (8.4-25.7); BUN/Creatinine Ratio 20.11; CRP (Inflammatory) 13.76 mg/dL (= or < 0.5); Calc. Creatinine Clearance 13 mL/min (70-130); Calcium 9.3 mg/dL (7.8-10.44); Carbon Dioxide 27 mmol/L (23-31); Chloride 95 mmol/L (98-107); Estimated GFR 17; Glucose 289 mg/dL (83-110); Phosphorus 2.3 mg/dL (2.3-4.7); Platelet Count 89 10x3/uL (130-400); Potassium 4.2 mmol/L (3.5-5.1); Sodium 135 mmol/L (136-145)
[2023-07-14] MEDS: Ipratropium/Albuterol 3 ML NEB NEB SCH ×3 (07:16→22:16)
[2023-07-14] MEDS: Amlodipine 5 MG TAB PO SCH ×2 (08:04→20:32)
[2023-07-14] MEDS: Polyethylene Glycol 3350 17 GM Packet PO SCH (08:04)
[2023-07-14] MEDS: Senokot S 8.6-50 MG TAB PO SCH ×2 (08:04→20:33)
[2023-07-14] MEDS: Insulin NPH Human Isophane 100 UNITS/ML (10 ML VIAL) SC SCH (08:38)
[2023-07-14] MEDS: rOPINIRole HCl 0.5 MG TAB PO PRN (11:25)
[2023-07-14] MEDS: HumaLOG 300 UNITS/3 ML VIAL SC PRN (11:40)
[2023-07-14] MEDS: Cefepime 1 GM in Sodium Chloride 0.9% 100 ML IVPB SCH (16:51)
[2023-07-14] MEDS: rOPINIRole HCl 0.5 MG TAB PO SCH (20:33)
[2023-07-14] MEDS: Folic Acid/Vit B Comp W-C PO SCH (20:33)
[2023-07-14] MEDS: Labetalol HCl 100 MG/20 ML VIAL SLOW IVP PRN (22:26)
[2023-07-15] MEDS: rOPINIRole HCl 0.5 MG TAB PO PRN ×2 (04:51→10:55)
[2023-07-15] MEDS: Ipratropium/Albuterol 3 ML NEB NEB SCH ×3 (06:59→21:40)
[2023-07-15] MEDS: HumaLOG 300 UNITS/3 ML VIAL SC PRN ×3 (07:04→20:41)
[2023-07-15 07:20] LABS: Vancomycin, Random 10.1 ug/mL (See Comment)
[2023-07-15] MEDS: Polyethylene Glycol 3350 17 GM Packet PO SCH (07:52)
[2023-07-15] MEDS: Amlodipine 5 MG TAB PO SCH ×2 (07:52→20:22)
[2023-07-15] MEDS: Senokot S 8.6-50 MG TAB PO SCH ×2 (07:52→20:23)
[2023-07-15] MEDS: Insulin NPH Human Isophane 100 UNITS/ML (10 ML VIAL) SC SCH (08:05)
[2023-07-15] MEDS ORDERED: EPOETIN ALFA-EPBX (ESRD) 10,000 UNITS/ML VIAL IVP SCH (09:00)
[2023-07-15] MEDS: Cefepime 1 GM in Sodium Chloride 0.9% 100 ML IVPB SCH (16:31)
[2023-07-15] MEDS ORDERED: Vancomycin HCl 750 MG in Sodium Chloride 0.9% 250 ML 250 ML IVPB SCH (17:00)
[2023-07-15] MEDS: Acetaminophen 325 MG TAB PO PRN (17:10)
[2023-07-15] MEDS: Labetalol HCl 100 MG/20 ML VIAL SLOW IVP PRN (18:05)
[2023-07-15] MEDS: Folic Acid/Vit B Comp W-C PO SCH (20:23)
[2023-07-15] MEDS: rOPINIRole HCl 0.5 MG TAB PO SCH (20:23)
[2023-07-16] MEDS: rOPINIRole HCl 0.5 MG TAB PO PRN (03:50)
[2023-07-16] MEDS: HumaLOG 300 UNITS/3 ML VIAL SC PRN ×2 (07:36→11:38)
[2023-07-16] MEDS: Acetaminophen 325 MG TAB PO PRN (07:37)
[2023-07-16] MEDS: Amlodipine 5 MG TAB PO SCH ×2 (07:39→20:02)
[2023-07-16] MEDS: Insulin NPH Human Isophane 100 UNITS/ML (10 ML VIAL) SC SCH (07:39)
[2023-07-16] MEDS: Polyethylene Glycol 3350 17 GM Packet PO SCH (07:39)
[2023-07-16] MEDS: Senokot S 8.6-50 MG TAB PO SCH ×2 (07:39→20:03)
[2023-07-16] MEDS: Ipratropium/Albuterol 3 ML NEB NEB SCH ×3 (07:43→19:28)
[2023-07-16] MEDS: Cefepime 1 GM in Sodium Chloride 0.9% 100 ML IVPB SCH (19:17)
[2023-07-16] MEDS: rOPINIRole HCl 0.5 MG TAB PO SCH (20:02)
[2023-07-16] MEDS: Folic Acid/Vit B Comp W-C PO SCH (20:03)
[2023-07-17] MEDS: Ondansetron ODT 4 MG TAB PO PRN (04:47)
[2023-07-17] MEDS: HumaLOG 300 UNITS/3 ML VIAL SC PRN ×2 (05:40→20:28)
[2023-07-17] MEDS: Labetalol HCl 100 MG/20 ML VIAL SLOW IVP PRN (05:40)
[2023-07-17] MEDS: Ipratropium/Albuterol 3 ML NEB NEB SCH ×3 (08:02→18:40)
[2023-07-17] MEDS: Polyethylene Glycol 3350 17 GM Packet PO SCH (14:06)
[2023-07-17] MEDS: Senokot S 8.6-50 MG TAB PO SCH ×2 (14:07→20:35)
[2023-07-17] MEDS: Amlodipine 5 MG TAB PO SCH ×2 (14:07→20:28)
[2023-07-17] MEDS: Insulin NPH Human Isophane 100 UNITS/ML (10 ML VIAL) SC SCH (14:10)
[2023-07-17] MEDS: Epoetin (ESRD) 10,000 UNITS/ML VIAL IVP SCH (14:55)
[2023-07-17] MEDS: Cefepime 1 GM in Sodium Chloride 0.9% 100 ML IVPB SCH (16:37)
[2023-07-17] MEDS: hydrALAZINE 25 MG TAB PO PRN (16:47)
[2023-07-17] MEDS ORDERED: Vancomycin 1 GM in Premix Bag 1 BAG IVPB SCH (17:00)
[2023-07-17] MEDS: rOPINIRole HCl 0.5 MG TAB PO SCH (20:27)
[2023-07-17] MEDS: Folic Acid/Vit B Comp W-C PO SCH (20:27)
[2023-07-17] MEDS: rOPINIRole HCl 0.5 MG TAB PO PRN (23:04)
[2023-07-18] MEDS ORDERED: traMADol HCl 50 MG TAB PO SCH ×2 (05:30→21:30)
[2023-07-18] MEDS: HumaLOG 300 UNITS/3 ML VIAL SC PRN ×2 (05:32→13:05)
[2023-07-18] MEDS: Ipratropium/Albuterol 3 ML NEB NEB SCH ×3 (07:29→19:01)
[2023-07-18 07:34] LABS: #Basophils 0.1 thou/uL (0.0-0.2); #Eosinphils 0.5 thou/uL (0.0-0.7); #Neutrophils 7.9 thou/uL (1.40-6.50); %Basophils 0.5 % (0.0-1.0); %Eosinophils 5.2 % (0.0-10.0); %Lymphocytes 5.9 % (21.0-51.0); %Monocytes 10.1 % (0.0-10.0); %Neutrophils 76.7 % (42.0-75.0); Hematocrit 28.3 % (42.0-52.0); Mean Corpuscular HGB CONC 31.8 g/dL (32.0-36.0); Mean Corpuscular Hemoglobin 31.6 pg (27.0-31.0); Mean Corpuscular Volume 99.3 fl (78.0-98.0); Mean Platelet Volume 10.7 fL (7.4-10.4); Platelet Count 176 10x3/uL (130-400); RBC Distribution Width 16.3 % (11.5-14.5); Red Blood Cell (RBC) Count 2.85 mill/uL (4.70-6.10); White Blood Cell (WBC) Count 10.3 10x3/uL (4.8-10.8)
[2023-07-18 08:13] LABS: ALT (SGPT) 16 U/L (8-55); AST (SGOT) 23 U/L (5-34); Albumin 3.5 g/dL (3.4-4.8); Alkaline Phosphatase 206 U/L (40-110); Anion Gap 17 mmol/L (10-20); BUN (Urea Nitrogen) 73 mg/dL (8.4-25.7); Bilirubin, Total 0.5 mg/dL (0.2-1.2); Calc. Creatinine Clearance 16 mL/min (70-130); Calcium 9.4 mg/dL (7.8-10.44); Carbon Dioxide 26 mmol/L (23-31); Chloride 94 mmol/L (98-107); Estimated GFR 21; Globulin 3.1 g/dL (2.4-3.5); Glucose 165 mg/dL (83-110); Potassium 5.3 mmol/L (3.5-5.1); Protein, Total 6.6 g/dL (5.8-8.1); Sodium 132 mmol/L (136-145)
[2023-07-18] MEDS: Insulin NPH Human Isophane 100 UNITS/ML (10 ML VIAL) SC SCH (09:14)
[2023-07-18] MEDS: Polyethylene Glycol 3350 17 GM Packet PO SCH (09:14)
[2023-07-18] MEDS: Amlodipine 5 MG TAB PO SCH ×2 (09:14→21:27)
[2023-07-18] MEDS: Senokot S 8.6-50 MG TAB PO SCH ×2 (09:14→21:27)
[2023-07-18] MEDS: Cefepime 1 GM in Sodium Chloride 0.9% 100 ML IVPB SCH (17:58)
[2023-07-18] MEDS: Folic Acid/Vit B Comp W-C PO SCH (21:27)
[2023-07-18] MEDS: rOPINIRole HCl 0.5 MG TAB PO SCH (21:27)
[2023-07-18] MEDS: Ondansetron ODT 4 MG TAB PO PRN (22:21)
[2023-07-19] MEDS ORDERED: GUAIFENESIN SF SOLN 200 MG/10 ML UDCUP PO PRN (03:20)
[2023-07-19] MEDS ORDERED: Benzonatate 100 MG CAP PO PRN (03:20)
[2023-07-19] MEDS ORDERED: Ipratropium/Albuterol 3 ML NEB NEB SCH (04:30)
[2023-07-19 05:16] LABS: #Eosinphils 0.5 thou/uL (0.0-0.7); #Monocytes 1.2 thou/uL (0.11-0.59); #Neutrophils 8.3 thou/uL (1.40-6.50); %Basophils 0.4 % (0.0-1.0); %Lymphocytes 4.8 % (21.0-51.0); %Monocytes 11.3 % (0.0-10.0); %Neutrophils 76.6 % (42.0-75.0); Hematocrit 27.7 % (42.0-52.0); Hemoglobin 8.9 g/dL (14.0-18.0); Mean Corpuscular HGB CONC 32.1 g/dL (32.0-36.0); Mean Corpuscular Hemoglobin 32.5 pg (27.0-31.0); Mean Corpuscular Volume 101.1 fl (78.0-98.0); Mean Platelet Volume 10.2 fL (7.4-10.4); Platelet Count 168 10x3/uL (130-400); Red Blood Cell (RBC) Count 2.74 mill/uL (4.70-6.10); White Blood Cell (WBC) Count 10.9 10x3/uL (4.8-10.8)
[2023-07-19 05:38] LABS: Anion Gap 19 mmol/L (10-20); BUN (Urea Nitrogen) 98 mg/dL (8.4-25.7); Calc. Creatinine Clearance 13 mL/min (70-130); Calcium 9.5 mg/dL (7.8-10.44); Carbon Dioxide 26 mmol/L (23-31); Chloride 91 mmol/L (98-107); Estimated GFR 15; Glucose 162 mg/dL (83-110); Sodium 130 mmol/L (136-145)
[2023-07-19 05:44] LABS: Potassium 6.1 mmol/L (3.5-5.1)
[2023-07-19 05:54] LABS: Actual Bicarbonate (HCO3a) 24.9 mEq/L (22-28); Base Excess (BEa) 0.4 mEq/L (-2.0 to +3.0); CO2 Tension 39.5 mmHg (35.0-45.0); Calcium, Ionized (arterial) 1.17 mmol/L (1.12-1.30); Carboxyhemoglobin (COHb) 1.4 gm% (0.0-3.0); Hematocrit-ABG 29 % (42.0-52.0); Hemoglobin (Hb) 9.7 g/dL (14.0-18.0); Potassium - ABG Lab 5.97 mmol/L (3.70-5.30); pH, Arterial 7.418 (7.35-7.45)
[2023-07-19 05:55] LABS: O2 Tension (PaO2), arterial 45.4 mmHg (> 70.0); Puncture Site RRA
[2023-07-19 05:56] LABS: ALV-art Gradient 190.425 mmHg (0-20)
[2023-07-19] MEDS ORDERED: LOKELMA 10 GM PACKET PO SCH (06:00)
[2023-07-19] MEDS: Ipratropium/Albuterol 3 ML NEB NEB SCH ×5 (06:43→22:14)
[2023-07-19] MEDS ORDERED: Ipratropium/Albuterol 3 ML NEB NEB PRN (06:58)
[2023-07-19 07:39] LABS: Vancomycin, Random 16.7 ug/mL (See Comment)
[2023-07-19] MEDS: Polyethylene Glycol 3350 17 GM Packet PO SCH (10:30)
[2023-07-19] MEDS: Amlodipine 5 MG TAB PO SCH ×2 (10:30→20:17)
[2023-07-19] MEDS: Senokot S 8.6-50 MG TAB PO SCH ×2 (10:31→20:17)
[2023-07-19] MEDS: rOPINIRole HCl 0.5 MG TAB PO PRN (10:31)
[2023-07-19] MEDS: Epoetin (ESRD) 10,000 UNITS/ML VIAL IVP SCH (11:14)
[2023-07-19] MEDS: Insulin NPH Human Isophane 100 UNITS/ML (10 ML VIAL) SC SCH (11:28)
[2023-07-19] MEDS: Labetalol HCl 100 MG/20 ML VIAL SLOW IVP PRN (16:04)
[2023-07-19] MEDS ORDERED: Vancomycin HCl 500 MG in Sodium Chloride 0.9% 100 ML IVPB SCH (17:00)
[2023-07-19] MEDS ORDERED: traMADol HCl 50 MG TAB PO SCH (20:00)
[2023-07-19] MEDS: rOPINIRole HCl 0.5 MG TAB PO SCH (20:15)
[2023-07-19] MEDS: Folic Acid/Vit B Comp W-C PO SCH (20:17)
[2023-07-19] MEDS: HumaLOG 300 UNITS/3 ML VIAL SC PRN (20:21)
[2023-07-20] MEDS: Ipratropium/Albuterol 3 ML NEB NEB SCH ×6 (01:40→22:29)
[2023-07-20 07:39] LABS: #Eosinphils 0.4 thou/uL (0.0-0.7); #Monocytes 1.2 thou/uL (0.11-0.59); #Neutrophils 7.4 thou/uL (1.40-6.50); %Basophils 0.4 % (0.0-1.0); %Eosinophils 4.2 % (0.0-10.0); %Lymphocytes 6.8 % (21.0-51.0); %Monocytes 12.3 % (0.0-10.0); Hematocrit 28.9 % (42.0-52.0); Hemoglobin 9.3 g/dL (14.0-18.0); Mean Corpuscular HGB CONC 32.2 g/dL (32.0-36.0); Mean Corpuscular Volume 99.3 fl (78.0-98.0); Mean Platelet Volume 10.1 fL (7.4-10.4); Platelet Count 180 10x3/uL (130-400); RBC Distribution Width 16.4 % (11.5-14.5); Red Blood Cell (RBC) Count 2.91 mill/uL (4.70-6.10); White Blood Cell (WBC) Count 9.9 10x3/uL (4.8-10.8)
[2023-07-20 08:06] LABS: Albumin 3.7 g/dL (3.4-4.8); Anion Gap 18 mmol/L (10-20); BUN (Urea Nitrogen) 64 mg/dL (8.4-25.7); BUN/Creatinine Ratio 21.62; Calc. Creatinine Clearance 17 mL/min (70-130); Calcium 9.7 mg/dL (7.8-10.44); Carbon Dioxide 28 mmol/L (23-31); Chloride 93 mmol/L (98-107); Estimated GFR 22; Glucose 143 mg/dL (83-110); Phosphorus 2.8 mg/dL (2.3-4.7); Potassium 4.9 mmol/L (3.5-5.1); Sodium 134 mmol/L (136-145)
[2023-07-20] MEDS: Amlodipine 5 MG TAB PO SCH ×2 (08:09→21:20)
[2023-07-20] MEDS: Senokot S 8.6-50 MG TAB PO SCH ×2 (08:10→21:21)
[2023-07-20] MEDS: Polyethylene Glycol 3350 17 GM Packet PO SCH (08:10)
[2023-07-20] MEDS: Insulin NPH Human Isophane 100 UNITS/ML (10 ML VIAL) SC SCH (09:24)
[2023-07-20] MEDS: HumaLOG 300 UNITS/3 ML VIAL SC PRN ×2 (12:15→17:06)
[2023-07-20] MEDS: rOPINIRole HCl 0.5 MG TAB PO SCH (21:21)
[2023-07-20] MEDS: Heparin 5,000 UNITS/ML VIAL SC SCH (21:21)
[2023-07-20] MEDS: Folic Acid/Vit B Comp W-C PO SCH (21:21)
[2023-07-20] MEDS ORDERED: traMADol HCl 50 MG TAB PO SCH (23:30)
[2023-07-21] MEDS: hydrALAZINE 25 MG TAB PO PRN (01:25)
[2023-07-21] MEDS: Ipratropium/Albuterol 3 ML NEB NEB SCH ×6 (03:04→22:35)
[2023-07-21 04:18] VITALS: BMI 16.7
[2023-07-21] MEDS: Amlodipine 5 MG TAB PO SCH ×2 (10:12→20:23)
[2023-07-21] MEDS: Senokot S 8.6-50 MG TAB PO SCH ×2 (10:12→20:22)
[2023-07-21] MEDS: Insulin NPH Human Isophane 100 UNITS/ML (10 ML VIAL) SC SCH (10:12)
[2023-07-21] MEDS: Heparin 5,000 UNITS/ML VIAL SC SCH ×2 (10:12→20:22)
[2023-07-21] MEDS: Polyethylene Glycol 3350 17 GM Packet PO SCH (10:13)
[2023-07-21] MEDS: Folic Acid/Vit B Comp W-C PO SCH (20:22)
[2023-07-21] MEDS: rOPINIRole HCl 0.5 MG TAB PO SCH (20:22)
[2023-07-21] MEDS ORDERED: traMADol HCl 50 MG TAB PO PRN (21:08)
[2023-07-21] MEDS: rOPINIRole HCl 0.5 MG TAB PO PRN (21:30)
[2023-07-22] MEDS: Acetaminophen 325 MG TAB PO PRN (02:06)
[2023-07-22] MEDS: Ipratropium/Albuterol 3 ML NEB NEB SCH ×6 (02:25→21:39)
[2023-07-22] MEDS: HYDROcodone/Acetaminophen 7.5/325 mg Tablet PO PRN ×2 (02:59→13:26)
[2023-07-22] MEDS ORDERED: diphenhydrAMINE 25 MG CAP PO SCH (03:00)
[2023-07-22] MEDS ORDERED: Heparin 10,000 UNITS/ 10 ML VIAL ONE (08:23)
[2023-07-22 09:04] LABS: Anion Gap 23 mmol/L (10-20); Calc. Creatinine Clearance 12 mL/min (70-130); Calcium 9.5 mg/dL (7.8-10.44); Carbon Dioxide 23 mmol/L (23-31); Chloride 89 mmol/L (98-107); Estimated GFR 12; Glucose 161 mg/dL (83-110); Potassium 5.6 mmol/L (3.5-5.1); Sodium 129 mmol/L (136-145)
[2023-07-22 09:22] LABS: BUN (Urea Nitrogen) 121 mg/dL (8.4-25.7)
[2023-07-22] MEDS: Amlodipine 5 MG TAB PO SCH ×2 (09:27→20:03)
[2023-07-22] MEDS: Multivitamin W/ Minerals 1 TAB PO SCH (09:28)
[2023-07-22] MEDS: Senokot S 8.6-50 MG TAB PO SCH ×2 (09:28→20:03)
[2023-07-22] MEDS: Epoetin (ESRD) 10,000 UNITS/ML VIAL IVP SCH (09:28)
[2023-07-22] MEDS: Heparin 5,000 UNITS/ML VIAL SC SCH ×2 (09:28→20:03)
[2023-07-22] MEDS: Insulin NPH Human Isophane 100 UNITS/ML (10 ML VIAL) SC SCH (09:28)
[2023-07-22] MEDS: Polyethylene Glycol 3350 17 GM Packet PO SCH (09:28)
[2023-07-22] MEDS: rOPINIRole HCl 0.5 MG TAB PO PRN (13:26)
[2023-07-22] MEDS: rOPINIRole HCl 0.5 MG TAB PO SCH (20:03)
[2023-07-22] MEDS: Folic Acid/Vit B Comp W-C PO SCH (20:04)
[2023-07-23] MEDS: Ipratropium/Albuterol 3 ML NEB NEB SCH ×6 (02:09→23:39)
[2023-07-23] MEDS: rOPINIRole HCl 0.5 MG TAB PO PRN (02:58)
[2023-07-23] MEDS: Heparin 5,000 UNITS/ML VIAL SC SCH ×2 (09:08→20:20)
[2023-07-23] MEDS: Amlodipine 5 MG TAB PO SCH ×2 (09:08→20:20)
[2023-07-23] MEDS: Insulin NPH Human Isophane 100 UNITS/ML (10 ML VIAL) SC SCH (09:09)
[2023-07-23] MEDS: HYDROcodone/Acetaminophen 7.5/325 mg Tablet PO PRN ×2 (09:09→20:19)
[2023-07-23] MEDS: Multivitamin W/ Minerals 1 TAB PO SCH (09:09)
[2023-07-23] MEDS: Polyethylene Glycol 3350 17 GM Packet PO SCH (09:09)
[2023-07-23] MEDS: Senokot S 8.6-50 MG TAB PO SCH ×2 (09:09→20:19)
[2023-07-23] MEDS: Folic Acid/Vit B Comp W-C PO SCH (20:19)
[2023-07-23] MEDS: rOPINIRole HCl 0.5 MG TAB PO SCH (20:19)
[2023-07-23 23:28] VITALS: TEMP 98.8
[2023-07-24] MEDS: Ipratropium/Albuterol 3 ML NEB NEB SCH ×4 (02:54→14:07)
[2023-07-24 07:39] LABS: #Basophils 0.1 thou/uL (0.0-0.2); #Eosinphils 0.7 thou/uL (0.0-0.7); #Monocytes 0.9 thou/uL (0.11-0.59); %Basophils 0.6 % (0.0-1.0); %Eosinophils 7.3 % (0.0-10.0); %Lymphocytes 7.5 % (21.0-51.0); %Monocytes 9.9 % (0.0-10.0); %Neutrophils 74.1 % (42.0-75.0); Hematocrit 26.6 % (42.0-52.0); Hemoglobin 8.6 g/dL (14.0-18.0); Mean Corpuscular HGB CONC 32.3 g/dL (32.0-36.0); Mean Corpuscular Hemoglobin 31.3 pg (27.0-31.0); Mean Corpuscular Volume 96.7 fl (78.0-98.0); Mean Platelet Volume 10.2 fL (7.4-10.4); Platelet Count 276 10x3/uL (130-400); RBC Distribution Width 15.9 % (11.5-14.5); Red Blood Cell (RBC) Count 2.75 mill/uL (4.70-6.10); White Blood Cell (WBC) Count 9.5 10x3/uL (4.8-10.8)
[2023-07-24 08:06] LABS: Albumin 3.6 g/dL (3.4-4.8); Anion Gap 23 mmol/L (10-20); BUN (Urea Nitrogen) 121 mg/dL (8.4-25.7); BUN/Creatinine Ratio 31.19; Calc. Creatinine Clearance 14 mL/min (70-130); Calcium 9.7 mg/dL (7.8-10.44); Carbon Dioxide 25 mmol/L (23-31); Chloride 89 mmol/L (98-107); Estimated GFR 16; Glucose 108 mg/dL (83-110); Phosphorus 5.3 mg/dL (2.3-4.7); Potassium 5.3 mmol/L (3.5-5.1); Sodium 132 mmol/L (136-145)
[2023-07-24] MEDS: HYDROcodone/Acetaminophen 7.5/325 mg Tablet PO PRN (08:33)
[2023-07-24] MEDS: Heparin 5,000 UNITS/ML VIAL SC SCH (09:27)
[2023-07-24] MEDS: Amlodipine 5 MG TAB PO SCH (09:27)
[2023-07-24] MEDS: Senokot S 8.6-50 MG TAB PO SCH (09:27)
[2023-07-24] MEDS: rOPINIRole HCl 0.5 MG TAB PO PRN (11:34)
[2023-07-24] MEDS: Epoetin (ESRD) 10,000 UNITS/ML VIAL IVP SCH (14:16)
[2023-07-24] MEDS: Insulin NPH Human Isophane 100 UNITS/ML (10 ML VIAL) SC SCH (14:23)
[2023-07-24] MEDS: Multivitamin W/ Minerals 1 TAB PO SCH (14:24)
[2023-07-24] MEDS: Labetalol HCl 100 MG/20 ML VIAL SLOW IVP PRN (14:25)
[2023-07-24] MEDS: Polyethylene Glycol 3350 17 GM Packet PO SCH (14:25)
[2023-07-24 14:36] VITALS: BP 192/91
== END 2023-07-24 15:40 | DRG 640 ==
LOC: ERS 22:33 → IMCU/EMU 07-11 01:14 → T4-B 07-16 11:44 → IMCU/EMU 07-19 06:42 → T4-B 07-21 17:53
PROVIDERS: ADMIT Student in an Organized Health Care Education/Training Program; ATTEND Internal Medicine
DX: E87.70 Fluid overload, unspecified (principal); J15.69 Pneumonia due to other Gram-negative bacteria; N18.6 End stage renal disease; J96.01 Acute respiratory failure with hypoxia; E44.0 Moderate protein-calorie malnutrition; I13.2 Hypertensive heart and chronic kidney disease with heart failure and with stage 5 chronic kidney disease, or end stage renal disease; E87.1 Hypo-osmolality and hyponatremia; D64.9 Anemia, unspecified; E87.5 Hyperkalemia; E11.22 Type 2 diabetes mellitus with diabetic chronic kidney disease; R62.7 Adult failure to thrive; D69.6 Thrombocytopenia, unspecified; Z79.4 Long term (current) use of insulin; Z79.899 Other long term (current) drug therapy; Z99.2 Dependence on renal dialysis
CPT/HCPCS: 36415; 36416; 36430; 36600; 71045; 71275; 72128; 72131; 80048; 80053; 80069; 80202; 82607; 82728; 82805; 83540; 83550; 83605; 83880; 84145; 84484; 85025; 85379; 86140; 86850; 86900; 86901; 87040; 90935; 93005; 93010; 94660; 96365; 96367; 96372; 96375; G0257; J0456; J0692; J1644; J1815; J1885; J1940; J3370-JW; J3490; J7620; P9016; Q0162; Q4081; Q5105; Q9967

== ENCOUNTER 2023-08-01 23:27 | Inpatient (IN) | payer MEDICARE, BC ==
[2023-08-01] MEDS ORDERED: Ipratropium Bromide 2.5 ml Neb ONE (23:45)
[2023-08-01] MEDS ORDERED: Furosemide 40 MG/4 ML VIAL ONE (23:59)
[2023-08-02 00:10] LABS: #Basophils 0.1 thou/uL (0.0-0.2); #Monocytes 0.7 thou/uL (0.11-0.59); #Neutrophils 10.5 thou/uL (1.40-6.50); %Basophils 0.9 % (0.0-1.0); %Eosinophils 13.9 % (0.0-10.0); %Lymphocytes 6.7 % (21.0-51.0); %Monocytes 4.7 % (0.0-10.0); %Neutrophils 73.5 % (42.0-75.0); Hematocrit 32.8 % (42.0-52.0); Hemoglobin 10.1 g/dL (14.0-18.0); Mean Corpuscular HGB CONC 30.8 g/dL (32.0-36.0); Mean Corpuscular Hemoglobin 31.6 pg (27.0-31.0); Mean Corpuscular Volume 102.5 fl (78.0-98.0); Mean Platelet Volume 9.5 fL (7.4-10.4); Platelet Count 426 10x3/uL (130-400); RBC Distribution Width 17.1 % (11.5-14.5); White Blood Cell (WBC) Count 14.3 10x3/uL (4.8-10.8)
[2023-08-02 00:37] LABS: ALT (SGPT) 23 U/L (8-55); AST (SGOT) 44 U/L (5-34); Albumin 4.2 g/dL (3.4-4.8); Alkaline Phosphatase 211 U/L (40-110); Anion Gap 24 mmol/L (10-20); BUN (Urea Nitrogen) 75 mg/dL (8.4-25.7); Bilirubin, Total 0.7 mg/dL (0.2-1.2); Calc. Creatinine Clearance 0 mL/min (70-130); Carbon Dioxide 30 mmol/L (23-31); Chloride 90 mmol/L (98-107); Estimated GFR 16; Globulin 3.8 g/dL (2.4-3.5); Glucose 113 mg/dL (83-110); Potassium 5.3 mmol/L (3.5-5.1); Sodium 139 mmol/L (136-145)
[2023-08-02 00:40] LABS: Troponin I 0.027 ng/mL (< 0.028)
[2023-08-02] MEDS ORDERED: Acetaminophen 325 MG TAB PO PRN (02:11)
[2023-08-02] MEDS ORDERED: Insulin Regular 300 UNITS/3 ML VIAL IVP SCH (02:15)
[2023-08-02] MEDS ORDERED: Dextrose 50% Abboject 50 ML SYRINGE SLOW IVP SCH (02:15)
[2023-08-02] MEDS ORDERED: Glucagon 1 MG/ML KIT IM PRN ×2 (02:16→17:27)
[2023-08-02] MEDS ORDERED: Dextrose 50% Abboject 50 ML SYRINGE SLOW IVP PRN ×2 (02:16→17:27)
[2023-08-02] MEDS ORDERED: HumaLOG 300 UNITS/3 ML VIAL SC PRN ×3 (02:16→19:32)
[2023-08-02] MEDS ORDERED: Dextrose 5% in Water 1,000 ML IV PRN ×2 (02:16→17:27)
[2023-08-02] MEDS ORDERED: Nitroglycerin 2% Ointment 1 INCH/1 GM Packet TOP SCH (03:15)
[2023-08-02 05:32] LABS: #Basophils 0.1 thou/uL (0.0-0.2); #Monocytes 0.8 thou/uL (0.11-0.59); #Neutrophils 9.5 thou/uL (1.40-6.50); %Basophils 0.7 % (0.0-1.0); %Eosinophils 8.6 % (0.0-10.0); %Lymphocytes 5.2 % (21.0-51.0); %Monocytes 6.5 % (0.0-10.0); %Neutrophils 78.6 % (42.0-75.0); Hematocrit 28.8 % (42.0-52.0); Hemoglobin 8.8 g/dL (14.0-18.0); Mean Corpuscular HGB CONC 30.6 g/dL (32.0-36.0); Mean Corpuscular Hemoglobin 31.1 pg (27.0-31.0); Mean Corpuscular Volume 101.8 fl (78.0-98.0); Platelet Count 340 10x3/uL (130-400); RBC Distribution Width 16.9 % (11.5-14.5); Red Blood Cell (RBC) Count 2.83 mill/uL (4.70-6.10)
[2023-08-02 05:59] LABS: ALT (SGPT) 18 U/L (8-55); AST (SGOT) 26 U/L (5-34); Albumin 3.5 g/dL (3.4-4.8); Alkaline Phosphatase 160 U/L (40-110); Anion Gap 18 mmol/L (10-20); BUN (Urea Nitrogen) 79 mg/dL (8.4-25.7); Bilirubin, Total 0.6 mg/dL (0.2-1.2); Calc. Creatinine Clearance 14 mL/min (70-130); Calcium 9.2 mg/dL (7.8-10.44); Carbon Dioxide 32 mmol/L (23-31); Chloride 92 mmol/L (98-107); Estimated GFR 16; Globulin 2.8 g/dL (2.4-3.5); Potassium 4.9 mmol/L (3.5-5.1); Protein, Total 6.3 g/dL (5.8-8.1); Sodium 137 mmol/L (136-145)
[2023-08-02 06:03] LABS: Glucose 32 mg/dL (83-110)
[2023-08-02 07:20] LABS: HBSAB Concentration Less than 8.00 mIU/mL; HBSAg Index 0.18 S/CO (0-0.99); Hep B Core Total Ab Non-Reactive (NonReactive); Hep B Core Total Index 0.09 S/CO (0-0.79); Hep B Surf AB Non-Reactive (NonReactive); Hep B Surf Ag Non-Reactive S/CO (NonReactive); Hep C IgG Ab Non-Reactive S/CO (NonReactive); Hep C Index 0.05 S/CO (0-0.79)
[2023-08-02 07:35] LABS: Glucose 19 mg/dL (83-110)
[2023-08-02] MEDS: Amlodipine 5 MG TAB PO SCH ×2 (09:44→20:00)
[2023-08-02] MEDS: Heparin 5,000 UNITS/ML VIAL SC SCH ×2 (09:48→19:57)
[2023-08-02] MEDS ORDERED: Dextrose 10% in Water 1,000 ML IV SCH (10:30)
[2023-08-02] MEDS ORDERED: rOPINIRole HCl 0.25 MG TAB PO PRN (19:33)
[2023-08-02] MEDS ORDERED: rOPINIRole HCl 0.25 MG TAB PO SCH (21:00)
[2023-08-02] MEDS ORDERED: diphenhydrAMINE 25 MG CAP PO PRN (22:09)
[2023-08-02] MEDS: Cyclobenzaprine 10 MG TAB PO PRN (22:57)
[2023-08-03] MEDS: rOPINIRole HCl 0.25 MG TAB PO SCH ×6 (02:50→20:35)
[2023-08-03 04:08] LABS: #Basophils 0.1 thou/uL (0.0-0.2); #Eosinphils 1.7 thou/uL (0.0-0.7); #Monocytes 0.6 thou/uL (0.11-0.59); #Neutrophils 7.2 thou/uL (1.40-6.50); %Eosinophils 16.9 % (0.0-10.0); %Lymphocytes 6.3 % (21.0-51.0); %Monocytes 5.7 % (0.0-10.0); %Neutrophils 69.7 % (42.0-75.0); Hematocrit 29.6 % (42.0-52.0); Hemoglobin 9.5 g/dL (14.0-18.0); Mean Corpuscular HGB CONC 32.1 g/dL (32.0-36.0); Mean Corpuscular Hemoglobin 31.4 pg (27.0-31.0); Mean Platelet Volume 9.5 fL (7.4-10.4); Platelet Count 339 10x3/uL (130-400); RBC Distribution Width 16.5 % (11.5-14.5); Red Blood Cell (RBC) Count 3.03 mill/uL (4.70-6.10); White Blood Cell (WBC) Count 10.3 10x3/uL (4.8-10.8)
[2023-08-03 04:14] LABS: Mean Corpuscular Volume 97.7 fl (78.0-98.0)
[2023-08-03 04:34] LABS: ALT (SGPT) 16 U/L (8-55); AST (SGOT) 21 U/L (5-34); Albumin 3.4 g/dL (3.4-4.8); Alkaline Phosphatase 174 U/L (40-110); Anion Gap 21 mmol/L (10-20); BUN (Urea Nitrogen) 91 mg/dL (8.4-25.7); Bilirubin, Total 0.6 mg/dL (0.2-1.2); Calc. Creatinine Clearance 11 mL/min (70-130); Carbon Dioxide 28 mmol/L (23-31); Chloride 88 mmol/L (98-107); Estimated GFR 12; Globulin 2.8 g/dL (2.4-3.5); Glucose 229 mg/dL (83-110); Potassium 5.7 mmol/L (3.5-5.1); Protein, Total 6.2 g/dL (5.8-8.1); Sodium 131 mmol/L (136-145)
[2023-08-03] MEDS: HumaLOG 300 UNITS/3 ML VIAL SC PRN ×2 (06:58→18:01)
[2023-08-03] MEDS: Amlodipine 5 MG TAB PO SCH ×2 (09:53→20:34)
[2023-08-03] MEDS: Heparin 5,000 UNITS/ML VIAL SC SCH ×2 (09:53→20:35)
[2023-08-03] MEDS ORDERED: hydrALAZINE 20 MG/ML VIAL SLOW IVP SCH (17:45)
[2023-08-03] MEDS: Cyclobenzaprine 10 MG TAB PO PRN (20:35)
[2023-08-03] MEDS: Ondansetron PF 4 MG/2 ML Vial IVP PRN (20:57)
[2023-08-04] MEDS: rOPINIRole HCl 0.25 MG TAB PO SCH ×6 (02:37→21:11)
[2023-08-04 04:05] LABS: #Basophils 0.1 thou/uL (0.0-0.2); #Eosinphils 1.9 thou/uL (0.0-0.7); #Monocytes 0.7 thou/uL (0.11-0.59); #Neutrophils 6.8 thou/uL (1.40-6.50); %Basophils 1.1 % (0.0-1.0); %Eosinophils 18.8 % (0.0-10.0); %Lymphocytes 6.9 % (21.0-51.0); %Monocytes 6.8 % (0.0-10.0); %Neutrophils 66.1 % (42.0-75.0); Hematocrit 31.7 % (42.0-52.0); Hemoglobin 9.7 g/dL (14.0-18.0); Mean Corpuscular HGB CONC 30.6 g/dL (32.0-36.0); Mean Corpuscular Hemoglobin 31.2 pg (27.0-31.0); Mean Platelet Volume 9.5 fL (7.4-10.4); Platelet Count 334 10x3/uL (130-400); Red Blood Cell (RBC) Count 3.11 mill/uL (4.70-6.10); White Blood Cell (WBC) Count 10.3 10x3/uL (4.8-10.8)
[2023-08-04 04:19] LABS: Mean Corpuscular Volume 101.9 fl (78.0-98.0)
[2023-08-04 04:38] LABS: ALT (SGPT) 16 U/L (8-55); AST (SGOT) 24 U/L (5-34); Albumin 3.4 g/dL (3.4-4.8); Alkaline Phosphatase 170 U/L (40-110); Anion Gap 20 mmol/L (10-20); BUN (Urea Nitrogen) 65 mg/dL (8.4-25.7); Bilirubin, Total 0.6 mg/dL (0.2-1.2); Calc. Creatinine Clearance 14 mL/min (70-130); Carbon Dioxide 29 mmol/L (23-31); Chloride 92 mmol/L (98-107); Estimated GFR 18; Globulin 2.9 g/dL (2.4-3.5); Glucose 140 mg/dL (83-110); Protein, Total 6.3 g/dL (5.8-8.1); Sodium 136 mmol/L (136-145)
[2023-08-04] MEDS: Heparin 5,000 UNITS/ML VIAL SC SCH ×2 (09:22→21:12)
[2023-08-04] MEDS: Niacin 500 MG TAB PO SCH (09:22)
[2023-08-04] MEDS: Amlodipine 5 MG TAB PO SCH ×2 (09:22→21:11)
[2023-08-04] MEDS: HumaLOG 300 UNITS/3 ML VIAL SC PRN (11:55)
[2023-08-05] MEDS: rOPINIRole HCl 0.25 MG TAB PO SCH ×4 (01:03→14:02)
[2023-08-05] MEDS ORDERED: hydrALAZINE 25 MG TAB PO SCH (04:15)
[2023-08-05 06:01] LABS: #Basophils 0.1 thou/uL (0.0-0.2); #Eosinphils 2.8 thou/uL (0.0-0.7); #Monocytes 0.7 thou/uL (0.11-0.59); #Neutrophils 7.6 thou/uL (1.40-6.50); %Basophils 0.8 % (0.0-1.0); %Eosinophils 23.5 % (0.0-10.0); %Monocytes 5.8 % (0.0-10.0); %Neutrophils 63.5 % (42.0-75.0); Hemoglobin 9.6 g/dL (14.0-18.0); Mean Corpuscular Hemoglobin 31.9 pg (27.0-31.0); Mean Corpuscular Volume 99.7 fl (78.0-98.0); Mean Platelet Volume 9.2 fL (7.4-10.4); Platelet Count 301 10x3/uL (130-400); RBC Distribution Width 16.5 % (11.5-14.5); Red Blood Cell (RBC) Count 3.01 mill/uL (4.70-6.10); White Blood Cell (WBC) Count 11.9 10x3/uL (4.8-10.8)
[2023-08-05 06:26] LABS: Albumin 3.4 g/dL (3.4-4.8); Anion Gap 21 mmol/L (10-20); BUN (Urea Nitrogen) 97 mg/dL (8.4-25.7); BUN/Creatinine Ratio 20.55; Calc. Creatinine Clearance 11 mL/min (70-130); Calcium 9.3 mg/dL (7.8-10.44); Carbon Dioxide 29 mmol/L (23-31); Chloride 90 mmol/L (98-107); Estimated GFR 12; Glucose 127 mg/dL (83-110); Potassium 5.1 mmol/L (3.5-5.1); Sodium 135 mmol/L (136-145)
[2023-08-05] MEDS ORDERED: Heparin 10,000 UNITS/ 10 ML VIAL ONE (08:28)
[2023-08-05] MEDS ORDERED: Ipratropium/Albuterol 3 ML NEB NEB PRN (08:48)
[2023-08-05] MEDS ORDERED: FLU VACC QS2023(65UP)/MF59C/PF 60 MCG/0.5 ML SYRINGE IM ONE (09:00)
[2023-08-05] MEDS: Niacin 500 MG TAB PO SCH (09:05)
[2023-08-05] MEDS: Amlodipine 5 MG TAB PO SCH ×2 (09:06→20:41)
[2023-08-05] MEDS: Heparin 5,000 UNITS/ML VIAL SC SCH ×2 (09:09→20:41)
[2023-08-05] MEDS: cefTRIAXone\\ROCEPHIN 1 GM in Sodium Chloride 0.9% 100 ML IVPB SCH (09:26)
[2023-08-05] MEDS: HumaLOG 300 UNITS/3 ML VIAL SC PRN (14:03)
[2023-08-05] MEDS: Azithromycin 500 MG in Sodium Chloride 0.9% 250 ML 250 ML IVPB SCH (14:04)
[2023-08-05 15:54] LABS: Iron Binding Capacity, Total 209 mcg/dL (261-462)
[2023-08-05 15:55] LABS: Iron 32 ug/dL (65-175)
[2023-08-05] MEDS: rOPINIRole HCl 0.5 MG TAB PO SCH ×2 (17:41→20:41)
[2023-08-05] MEDS: Folic Acid/Vit B Comp W-C PO SCH (20:41)
[2023-08-05] MEDS ORDERED: Melatonin 3 MG TAB PO PRN (22:32)
[2023-08-05] MEDS: Cyclobenzaprine 10 MG TAB PO PRN (22:45)
[2023-08-06] MEDS: rOPINIRole HCl 0.5 MG TAB PO SCH ×6 (00:35→20:28)
[2023-08-06] MEDS: Ondansetron PF 4 MG/2 ML Vial IVP PRN ×3 (00:35→20:28)
[2023-08-06 04:49] LABS: Albumin 3.6 g/dL (3.4-4.8); Anion Gap 17 mmol/L (10-20); BUN (Urea Nitrogen) 55 mg/dL (8.4-25.7); BUN/Creatinine Ratio 16.62; Calc. Creatinine Clearance 15 mL/min (70-130); Calcium 9.4 mg/dL (7.8-10.44); Carbon Dioxide 29 mmol/L (23-31); Chloride 92 mmol/L (98-107); Estimated GFR 19; Glucose 132 mg/dL (83-110); Potassium 5.2 mmol/L (3.5-5.1); Sodium 133 mmol/L (136-145)
[2023-08-06 05:18] LABS: #Basophils 0.1 thou/uL (0.0-0.2); #Eosinphils 2.7 thou/uL (0.0-0.7); #Monocytes 0.6 thou/uL (0.11-0.59); #Neutrophils 8.1 thou/uL (1.40-6.50); %Basophils 0.8 % (0.0-1.0); %Eosinophils 21.9 % (0.0-10.0); %Lymphocytes 5.3 % (21.0-51.0); %Neutrophils 66.6 % (42.0-75.0); Hematocrit 31.4 % (42.0-52.0); Hemoglobin 9.6 g/dL (14.0-18.0); Mean Corpuscular HGB CONC 30.6 g/dL (32.0-36.0); Mean Corpuscular Hemoglobin 30.7 pg (27.0-31.0); Mean Corpuscular Volume 100.3 fl (78.0-98.0); Mean Platelet Volume 9.5 fL (7.4-10.4); Platelet Count 294 10x3/uL (130-400); RBC Distribution Width 16.4 % (11.5-14.5); Red Blood Cell (RBC) Count 3.13 mill/uL (4.70-6.10); White Blood Cell (WBC) Count 12.1 10x3/uL (4.8-10.8)
[2023-08-06] MEDS: Azithromycin 500 MG in Sodium Chloride 0.9% 250 ML 250 ML IVPB SCH (09:05)
[2023-08-06] MEDS: cefTRIAXone\\ROCEPHIN 1 GM in Sodium Chloride 0.9% 100 ML IVPB SCH (09:05)
[2023-08-06] MEDS: Heparin 5,000 UNITS/ML VIAL SC SCH ×2 (09:06→20:29)
[2023-08-06] MEDS: Amlodipine 5 MG TAB PO SCH ×2 (09:06→20:28)
[2023-08-06] MEDS: Niacin 500 MG TAB PO SCH (09:19)
[2023-08-06] MEDS ORDERED: Methocarbamol 500 MG TAB PO PRN (10:24)
[2023-08-06] MEDS ORDERED: Ferrous Sulfate 325 MG TAB PO SCH (12:00)
[2023-08-06] MEDS: Carvedilol 3.125 MG TAB PO SCH (17:38)
[2023-08-06] MEDS: Folic Acid/Vit B Comp W-C PO SCH (20:28)
[2023-08-07] MEDS: rOPINIRole HCl 0.5 MG TAB PO SCH ×5 (01:22→18:09)
[2023-08-07 04:26] LABS: #Basophils 0.1 thou/uL (0.0-0.2); #Eosinphils 1.1 thou/uL (0.0-0.7); #Monocytes 0.4 thou/uL (0.11-0.59); %Basophils 0.8 % (0.0-1.0); %Eosinophils 11.7 % (0.0-10.0); %Lymphocytes 6.5 % (21.0-51.0); %Monocytes 4.1 % (0.0-10.0); %Neutrophils 76.7 % (42.0-75.0); Hematocrit 30.2 % (42.0-52.0); Hemoglobin 9.4 g/dL (14.0-18.0); Mean Corpuscular HGB CONC 31.1 g/dL (32.0-36.0); Mean Corpuscular Volume 99.7 fl (78.0-98.0); Mean Platelet Volume 9.6 fL (7.4-10.4); Platelet Count 258 10x3/uL (130-400); Red Blood Cell (RBC) Count 3.03 mill/uL (4.70-6.10); White Blood Cell (WBC) Count 9.1 10x3/uL (4.8-10.8)
[2023-08-07] MEDS ORDERED: hydrALAZINE 25 MG TAB PO SCH (04:45)
[2023-08-07 04:56] LABS: Albumin 3.5 g/dL (3.4-4.8); Anion Gap 21 mmol/L (10-20); BUN (Urea Nitrogen) 73 mg/dL (8.4-25.7); BUN/Creatinine Ratio 16.19; Calc. Creatinine Clearance 11 mL/min (70-130); Calcium 9.2 mg/dL (7.8-10.44); Carbon Dioxide 27 mmol/L (23-31); Chloride 93 mmol/L (98-107); Estimated GFR 13; Glucose 129 mg/dL (83-110); Phosphorus 4.8 mg/dL (2.3-4.7); Potassium 5.7 mmol/L (3.5-5.1); Sodium 135 mmol/L (136-145)
[2023-08-07] MEDS: Amlodipine 5 MG TAB PO SCH (08:55)
[2023-08-07] MEDS: Niacin 500 MG TAB PO SCH (08:55)
[2023-08-07] MEDS: cefTRIAXone\\ROCEPHIN 1 GM in Sodium Chloride 0.9% 100 ML IVPB SCH ×2 (08:55→09:13)
[2023-08-07] MEDS: Azithromycin 500 MG in Sodium Chloride 0.9% 250 ML 250 ML IVPB SCH (09:13)
[2023-08-07] MEDS: Heparin 5,000 UNITS/ML VIAL SC SCH (09:13)
[2023-08-07] MEDS: Carvedilol 3.125 MG TAB PO SCH (10:52)
[2023-08-07 11:06] VITALS: TEMP 97.6
[2023-08-07 14:41] VITALS: BMI 18.3
[2023-08-07] MEDS ORDERED: Carvedilol 6.25 MG TAB PO SCH (17:00)
[2023-08-07 18:10] VITALS: BP 172/78
== END 2023-08-07 18:56 | DRG 189 ==
LOC: ERS 23:27 → IMCU/EMU 08-02 01:50 → 2NO 08-04 04:36
PROVIDERS: ADMIT Internal Medicine; ATTEND Internal Medicine
PROC: 5A09357 Assistance with Respiratory Ventilation, Less than 24 Consecutive Hours, Continuous Positive Airway Pressure (ICD-10-PCS; principal; 2023-08-02)
DX: J96.01 Acute respiratory failure with hypoxia (principal); N18.6 End stage renal disease; J90 Pleural effusion, not elsewhere classified; I12.0 Hypertensive chronic kidney disease with stage 5 chronic kidney disease or end stage renal disease; J93.9 Pneumothorax, unspecified; J81.1 Chronic pulmonary edema; Z66 Do not resuscitate; E11.22 Type 2 diabetes mellitus with diabetic chronic kidney disease; G25.81 Restless legs syndrome; F41.9 Anxiety disorder, unspecified; F32.A Depression, unspecified; E87.70 Fluid overload, unspecified; D72.829 Elevated white blood cell count, unspecified; E87.5 Hyperkalemia; I16.0 Hypertensive urgency; E11.649 Type 2 diabetes mellitus with hypoglycemia without coma; R53.1 Weakness; Z99.2 Dependence on renal dialysis; Z79.899 Other long term (current) drug therapy; Z88.5 Allergy status to narcotic agent; Z79.4 Long term (current) use of insulin; Z82.49 Family history of ischemic heart disease and other diseases of the circulatory system; Z98.890 Other specified postprocedural states
CPT/HCPCS: 36415; 36416; 71045; 80053; 80069; 82728; 83540; 83550; 83880; 84484; 85025; 86704; 93005; 94640; 96374; J0360; J0456; J0696; J1644; J1815; J1940; J2405; J3490; J7050; J7611; J7620

== ENCOUNTER 2023-08-12 01:34 | Inpatient (IN) | payer MEDICARE, BC ==
[2023-08-12 02:00] LABS: #Basophils 0.1 thou/uL (0.0-0.2); #Eosinphils 2.2 thou/uL (0.0-0.7); #Monocytes 0.8 thou/uL (0.11-0.59); #Neutrophils 10.4 thou/uL (1.40-6.50); %Basophils 0.7 % (0.0-1.0); %Eosinophils 15.3 % (0.0-10.0); %Lymphocytes 5.2 % (21.0-51.0); %Monocytes 5.7 % (0.0-10.0); %Neutrophils 72.6 % (42.0-75.0); Hematocrit 33.2 % (42.0-52.0); Hemoglobin 10.5 g/dL (14.0-18.0); Mean Corpuscular HGB CONC 31.6 g/dL (32.0-36.0); Mean Corpuscular Hemoglobin 31.1 pg (27.0-31.0); Mean Corpuscular Volume 98.2 fl (78.0-98.0); Mean Platelet Volume 9.4 fL (7.4-10.4); Platelet Count 213 10x3/uL (130-400); RBC Distribution Width 15.6 % (11.5-14.5); Red Blood Cell (RBC) Count 3.38 mill/uL (4.70-6.10); White Blood Cell (WBC) Count 14.3 10x3/uL (4.8-10.8)
[2023-08-12 02:22] LABS: ALT (SGPT) 26 U/L (8-55); AST (SGOT) 34 U/L (5-34); Albumin 4.3 g/dL (3.4-4.8); Alkaline Phosphatase 176 U/L (40-110); Anion Gap 20 mmol/L (10-20); BUN (Urea Nitrogen) 91 mg/dL (8.4-25.7); Bilirubin, Total 0.7 mg/dL (0.2-1.2); Calc. Creatinine Clearance 0 mL/min (70-130); Carbon Dioxide 29 mmol/L (23-31); Chloride 95 mmol/L (98-107); Estimated GFR 12; Globulin 3.1 g/dL (2.4-3.5); Potassium 5.3 mmol/L (3.5-5.1); Protein, Total 7.4 g/dL (5.8-8.1); Sodium 139 mmol/L (136-145)
[2023-08-12 02:29] LABS: Glucose 34 mg/dL (83-110)
[2023-08-12 02:32] LABS: Troponin I 0.036 ng/mL (< 0.028)
[2023-08-12 02:45] LABS: Magnesium 2.4 mg/dL (1.6-2.6)
[2023-08-12 02:48] LABS: INR-International Normal Ratio 1.1; PTT 34.3 sec (22.9-36.1)
[2023-08-12] MEDS ORDERED: Furosemide 40 MG/4 ML VIAL ONE (02:57)
[2023-08-12] MEDS ORDERED: Cefepime 1 GM VIAL ONE (02:57)
[2023-08-12 03:06] LABS: Actual Bicarbonate (HCO3v) 30.3 mEq/L (22-28); Calcium, Ionized (venous) 1.09 mmol/L (1.16-1.32); Chloride (VBG) 94 mmol/L (98-106); Hematocrit-VBG 35 % (42.0-52.0); Hemoglobin (Hb) 11.8 g/dL (12.6-17.4); Potassium (VBG) 5.41 mmol/L (3.70-5.30); Sodium 137 mmol/L (133-146); pH (venous) 7.419 (7.32-7.43)
[2023-08-12] MEDS ORDERED: Vancomycin 1 GM/200 ML (FROZEN) BAG ONE (03:50)
[2023-08-12 04:43] LABS: SARS-CoV-2 NAA Rapid Test Not Detected (NotDetected)
[2023-08-12 05:07] LABS: Troponin I 0.031 ng/mL (< 0.028)
[2023-08-12] MEDS ORDERED: Ipratropium/Albuterol 3 ML NEB NEB PRN (06:19)
[2023-08-12] MEDS ORDERED: Glucagon 1 MG/ML KIT IM PRN (06:27)
[2023-08-12] MEDS ORDERED: Dextrose 5% in Water 1,000 ML IV PRN (06:27)
[2023-08-12] MEDS ORDERED: Dextrose 50% Abboject 50 ML SYRINGE SLOW IVP PRN (06:27)
[2023-08-12] MEDS ORDERED: Ondansetron PF 4 MG/2 ML Vial IVP PRN (07:17)
[2023-08-12] MEDS ORDERED: Calcium Carbonate 500 MG ChewTAB PO PRN (07:17)
[2023-08-12] MEDS ORDERED: Senokot S 8.6-50 MG TAB PO PRN (07:17)
[2023-08-12] MEDS ORDERED: Acetaminophen 325 MG TAB PO PRN (07:17)
[2023-08-12] MEDS ORDERED: Heparin 10,000 UNITS/ 10 ML VIAL ONE (08:28)
[2023-08-12] MEDS ORDERED: Amlodipine 5 MG TAB PO SCH (09:00)
[2023-08-12] MEDS: Niacin 500 MG TAB PO SCH (09:00)
[2023-08-12] MEDS: Multivitamin W/ Minerals 1 TAB PO SCH (09:00)
[2023-08-12] MEDS: Ferrous Sulfate 325 MG TAB PO SCH (09:00)
[2023-08-12] MEDS: Famotidine/PF 20 mg/2ml Vial SLOW IVP SCH (09:40)
[2023-08-12] MEDS: Heparin 5,000 UNITS/ML VIAL SC SCH ×2 (09:40→21:05)
[2023-08-12 10:54] LABS: Troponin I 0.045 ng/mL (< 0.028)
[2023-08-12] MEDS ORDERED: rOPINIRole HCl 0.25 MG TAB PO SCH ×2 (11:00→21:00)
[2023-08-12] MEDS ORDERED: FLU VACC QS2023(65UP)/MF59C/PF 60 MCG/0.5 ML SYRINGE IM ONE (12:00)
[2023-08-12] MEDS: Amlodipine 5 MG TAB PO SCH ×2 (13:07→21:05)
[2023-08-12] MEDS: Carvedilol 6.25 MG TAB PO SCH ×2 (13:24→18:03)
[2023-08-12] MEDS: hydrALAZINE 20 MG/ML VIAL SLOW IVP PRN (14:33)
[2023-08-12] MEDS: rOPINIRole HCl 0.25 MG TAB PO SCH ×2 (15:00→21:05)
[2023-08-12] MEDS: HumaLOG 300 UNITS/3 ML VIAL SC PRN (17:31)
[2023-08-12] MEDS: Folic Acid/Vit B Comp W-C PO SCH (21:05)
[2023-08-13] MEDS: HumaLOG 300 UNITS/3 ML VIAL SC PRN ×3 (01:26→21:16)
[2023-08-13 04:20] LABS: #Basophils 0.1 thou/uL (0.0-0.2); #Eosinphils 1.7 thou/uL (0.0-0.7); #Monocytes 0.8 thou/uL (0.11-0.59); #Neutrophils 5.5 thou/uL (1.40-6.50); %Basophils 1.5 % (0.0-1.0); %Eosinophils 18.9 % (0.0-10.0); %Monocytes 8.6 % (0.0-10.0); %Neutrophils 62.8 % (42.0-75.0); Hematocrit 33.2 % (42.0-52.0); Mean Corpuscular HGB CONC 30.1 g/dL (32.0-36.0); Mean Corpuscular Hemoglobin 30.6 pg (27.0-31.0); Mean Corpuscular Volume 101.5 fl (78.0-98.0); Mean Platelet Volume 9.8 fL (7.4-10.4); Platelet Count 180 10x3/uL (130-400); RBC Distribution Width 15.8 % (11.5-14.5); Red Blood Cell (RBC) Count 3.27 mill/uL (4.70-6.10); White Blood Cell (WBC) Count 8.8 10x3/uL (4.8-10.8)
[2023-08-13 04:47] LABS: Anion Gap 21 mmol/L (10-20); BUN (Urea Nitrogen) 55 mg/dL (8.4-25.7); Calc. Creatinine Clearance 15 mL/min (70-130); Calcium 9.2 mg/dL (7.8-10.44); Carbon Dioxide 25 mmol/L (23-31); Chloride 97 mmol/L (98-107); Estimated GFR 18; Glucose 69 mg/dL (83-110); Potassium 4.5 mmol/L (3.5-5.1); Sodium 138 mmol/L (136-145)
[2023-08-13] MEDS: Carvedilol 6.25 MG TAB PO SCH ×2 (08:30→16:55)
[2023-08-13] MEDS: Amlodipine 5 MG TAB PO SCH ×2 (09:00→21:13)
[2023-08-13] MEDS: Famotidine/PF 20 mg/2ml Vial SLOW IVP SCH (09:00)
[2023-08-13] MEDS: Heparin 5,000 UNITS/ML VIAL SC SCH ×2 (09:00→21:13)
[2023-08-13] MEDS: Niacin 500 MG TAB PO SCH (09:00)
[2023-08-13] MEDS: Multivitamin W/ Minerals 1 TAB PO SCH (09:00)
[2023-08-13] MEDS: rOPINIRole HCl 0.25 MG TAB PO SCH ×3 (09:00→21:13)
[2023-08-13 09:58] VITALS: BMI 19.0
[2023-08-13] MEDS ORDERED: Cefepime 1 GM in Sodium Chloride 0.9% 100 ML IVPB SCH (17:00)
[2023-08-13] MEDS: Folic Acid/Vit B Comp W-C PO SCH (21:13)
[2023-08-14 07:50] LABS: #Basophils 0.1 thou/uL (0.0-0.2); #Eosinphils 2.1 thou/uL (0.0-0.7); #Monocytes 0.9 thou/uL (0.11-0.59); #Neutrophils 6.2 thou/uL (1.40-6.50); %Basophils 0.9 % (0.0-1.0); %Eosinophils 20.8 % (0.0-10.0); %Lymphocytes 7.7 % (21.0-51.0); %Monocytes 8.5 % (0.0-10.0); %Neutrophils 61.8 % (42.0-75.0); Hematocrit 30.6 % (42.0-52.0); Hemoglobin 9.6 g/dL (14.0-18.0); Mean Corpuscular HGB CONC 31.4 g/dL (32.0-36.0); Mean Corpuscular Hemoglobin 30.8 pg (27.0-31.0); Mean Corpuscular Volume 98.1 fl (78.0-98.0); Mean Platelet Volume 9.5 fL (7.4-10.4); Platelet Count 188 10x3/uL (130-400); Red Blood Cell (RBC) Count 3.12 mill/uL (4.70-6.10)
[2023-08-14 08:13] LABS: Anion Gap 20 mmol/L (10-20); BUN (Urea Nitrogen) 75 mg/dL (8.4-25.7); Calc. Creatinine Clearance 11 mL/min (70-130); Calcium 9.3 mg/dL (7.8-10.44); Carbon Dioxide 27 mmol/L (23-31); Chloride 95 mmol/L (98-107); Estimated GFR 12; Glucose 142 mg/dL (83-110); Potassium 4.7 mmol/L (3.5-5.1); Sodium 137 mmol/L (136-145)
[2023-08-14] MEDS: Ferrous Sulfate 325 MG TAB PO SCH (08:32)
[2023-08-14] MEDS: Carvedilol 6.25 MG TAB PO SCH ×2 (08:32→18:09)
[2023-08-14] MEDS: rOPINIRole HCl 0.25 MG TAB PO SCH ×3 (08:32→21:13)
[2023-08-14] MEDS: Amlodipine 5 MG TAB PO SCH ×2 (08:32→21:12)
[2023-08-14] MEDS: Heparin 5,000 UNITS/ML VIAL SC SCH ×2 (08:32→21:12)
[2023-08-14] MEDS: Niacin 500 MG TAB PO SCH (08:32)
[2023-08-14] MEDS: Multivitamin W/ Minerals 1 TAB PO SCH (08:32)
[2023-08-14] MEDS ORDERED: Heparin 10,000 UNITS/ 10 ML VIAL ONE (11:24)
[2023-08-14] MEDS: HumaLOG 300 UNITS/3 ML VIAL SC PRN ×2 (18:36→21:19)
[2023-08-14] MEDS: Folic Acid/Vit B Comp W-C PO SCH (21:12)
[2023-08-15] MEDS: hydrALAZINE 20 MG/ML VIAL SLOW IVP PRN (03:28)
[2023-08-15] MEDS: rOPINIRole HCl 0.25 MG TAB PO SCH ×2 (04:44→13:17)
[2023-08-15 06:53] LABS: Anion Gap 15 mmol/L (10-20); BUN (Urea Nitrogen) 39 mg/dL (8.4-25.7); Calc. Creatinine Clearance 17 mL/min (70-130); Calcium 9.4 mg/dL (7.8-10.44); Carbon Dioxide 30 mmol/L (23-31); Chloride 98 mmol/L (98-107); Estimated GFR 21; Glucose 182 mg/dL (83-110); Potassium 4.3 mmol/L (3.5-5.1); Sodium 139 mmol/L (136-145)
[2023-08-15 08:18] VITALS: TEMP 97.4
[2023-08-15] MEDS: Carvedilol 6.25 MG TAB PO SCH (08:40)
[2023-08-15] MEDS: Amlodipine 5 MG TAB PO SCH (08:40)
[2023-08-15] MEDS: Multivitamin W/ Minerals 1 TAB PO SCH (08:41)
[2023-08-15] MEDS: Heparin 5,000 UNITS/ML VIAL SC SCH (08:41)
[2023-08-15] MEDS: Niacin 500 MG TAB PO SCH (08:42)
[2023-08-15] MEDS ORDERED: Famotidine 20 MG TAB PO SCH (09:00)
[2023-08-15] MEDS: HumaLOG 300 UNITS/3 ML VIAL SC PRN (13:17)
[2023-08-15 14:23] VITALS: BP 155/76
== END 2023-08-15 15:43 | DRG 291 ==
LOC: ERS 01:34 → CCU 04:16 → T4-A 08-13 10:50
PROVIDERS: ADMIT Internal Medicine; ATTEND Family Medicine
PROC: 5A09357 Assistance with Respiratory Ventilation, Less than 24 Consecutive Hours, Continuous Positive Airway Pressure (ICD-10-PCS; principal; 2023-08-12)
PROC: 5A1D70Z Performance of Urinary Filtration, Intermittent, Less than 6 Hours Per Day (ICD-10-PCS; 2023-08-12)
PROC: 5A1D70Z Performance of Urinary Filtration, Intermittent, Less than 6 Hours Per Day (ICD-10-PCS; 2023-08-14)
DX: I13.2 Hypertensive heart and chronic kidney disease with heart failure and with stage 5 chronic kidney disease, or end stage renal disease (principal); I50.33 Acute on chronic diastolic (congestive) heart failure; N18.6 End stage renal disease; J96.21 Acute and chronic respiratory failure with hypoxia; Z68.1 Body mass index [BMI] 19.9 or less, adult; E87.70 Fluid overload, unspecified; G25.81 Restless legs syndrome; E11.40 Type 2 diabetes mellitus with diabetic neuropathy, unspecified; E11.22 Type 2 diabetes mellitus with diabetic chronic kidney disease; Z66 Do not resuscitate; E87.5 Hyperkalemia; R62.7 Adult failure to thrive; D72.829 Elevated white blood cell count, unspecified; Z88.5 Allergy status to narcotic agent; Z99.2 Dependence on renal dialysis; Z79.899 Other long term (current) drug therapy; Z79.4 Long term (current) use of insulin; Z11.52 Encounter for screening for COVID-19
CPT/HCPCS: 36415; 36416; 71045; 80048; 80053; 82805; 83605; 83735; 83880; 84145; 84484; 85025; 85610; 85730; 87040; 90935; 93005; 94660; 96365; 96375; G0257; J0360; J0692; J1644; J1815; J1940; J2405; J3370-JW; S0028

== ENCOUNTER 2023-09-12 11:33 | Emergency (ER) | payer MEDICARE, BC | END 2023-09-12 13:10 | disposition home or self-care (01) | LOC: ERS 11:33 | DX: S09.90XA Unspecified injury of head, initial encounter (principal); I13.2 Hypertensive heart and chronic kidney disease with heart failure and with stage 5 chronic kidney disease, or end stage renal disease; I50.9 Heart failure, unspecified; N18.6 End stage renal disease; E11.22 Type 2 diabetes mellitus with diabetic chronic kidney disease; E11.40 Type 2 diabetes mellitus with diabetic neuropathy, unspecified; Z79.899 Other long term (current) drug therapy; W05.0XXA Fall from non-moving wheelchair, initial encounter | CPT/HCPCS: 99283 ==

== ENCOUNTER 2023-10-08 19:18 | Emergency (ER) | payer BC, MEDICARE ==
[2023-10-08] MEDS ORDERED: Fluorescein Opthalmic Strip ONE (19:58)
[2023-10-08] MEDS ORDERED: Proparacaine 0.5% Opth 15 ML BOT ONE (19:59)
== END 2023-10-08 21:20 | disposition home or self-care (01) ==
LOC: ERS 19:18
DX: H11.32 Conjunctival hemorrhage, left eye (principal); E11.319 Type 2 diabetes mellitus with unspecified diabetic retinopathy without macular edema; E11.40 Type 2 diabetes mellitus with diabetic neuropathy, unspecified; I11.0 Hypertensive heart disease with heart failure; I50.9 Heart failure, unspecified; Z99.2 Dependence on renal dialysis; Z79.899 Other long term (current) drug therapy
CPT/HCPCS: 99283

== ENCOUNTER 2023-11-11 19:22 | Inpatient (IN) | payer MEDICARE ==
[2023-11-11 20:44] LABS: #Basophils 0.1 thou/uL (0.0-0.2); #Eosinphils 0.8 thou/uL (0.0-0.7); #Monocytes 0.5 thou/uL (0.11-0.59); #Neutrophils 4.3 thou/uL (1.40-6.50); %Basophils 1.2 % (0.0-1.0); %Eosinophils 13.5 % (0.0-10.0); %Monocytes 7.9 % (0.0-10.0); %Neutrophils 73.1 % (42.0-75.0); Hematocrit 43.8 % (42.0-52.0); Mean Corpuscular Volume 84.4 fl (78.0-98.0); Platelet Count 206 10x3/uL (130-400); RBC Distribution Width 18.6 % (11.5-14.5); Red Blood Cell (RBC) Count 5.19 mill/uL (4.70-6.10); White Blood Cell (WBC) Count 5.9 10x3/uL (4.8-10.8)
[2023-11-11 21:15] LABS: Actual Bicarbonate (HCO3v) 29.3 mEq/L (22-28); Base Excess 4.5 mEq/L (-2.0 to +3.0); Calcium, Ionized (venous) 1.08 mmol/L (1.16-1.32); Chloride (VBG) 94 mmol/L (98-106); Hematocrit-VBG 44 % (42.0-52.0); Hemoglobin (Hb) 14.8 g/dL (12.6-17.4); Potassium (VBG) 5.01 mmol/L (3.70-5.30); Sodium 138 mmol/L (133-146)
[2023-11-11 21:16] LABS: ALT (SGPT) 11 U/L (8-55); AST (SGOT) 23 U/L (5-34); Albumin 4.2 g/dL (3.4-4.8); Alkaline Phosphatase 144 U/L (40-110); Anion Gap 18 mmol/L (10-20); BUN (Urea Nitrogen) 30 mg/dL (8.4-25.7); Bilirubin, Total 0.6 mg/dL (0.2-1.2); Calc. Creatinine Clearance 0 mL/min (70-130); Calcium 9.4 mg/dL (7.8-10.44); Carbon Dioxide 29 mmol/L (23-31); Chloride 93 mmol/L (98-107); Estimated GFR 19; Globulin 3.5 g/dL (2.4-3.5); Glucose 99 mg/dL (83-110); Lipase 4 U/L (8-78); Potassium 5.3 mmol/L (3.5-5.1); Protein, Total 7.7 g/dL (5.8-8.1); Sodium 135 mmol/L (136-145); Troponin I 0.027 ng/mL (< 0.028)
[2023-11-11 21:30] LABS: Bilirubin Negative (Negative); Blood, Urine Trace (Negative); Clarity Turbid (Clear); Glucose, Urine (Dipstick) 300 mg/dL (Negative); Ketone, Urine Negative (Negative); Leukocyte Negative Leu/uL (Negative); Nitrite Negative (Negative); Protein, Urine (Dipstick) 600 mg/dL (Neg-Trace); Specific Gravity, Urine 1.021 (1.002-1.036); Urobilinogen Normal mg/dL (Less than 2); WBC/HPF 21-50 HPF (0-3)
[2023-11-11 21:31] LABS: CAUTI Indications for Culture Alt mental st,lethar; Squamous Epithelial None Seen HPF (0-3); Transitional Epithelial 0-3 HPF (None Seen)
[2023-11-11 21:32] LABS: Bacteria/HPF 1+ HPF (None Seen)
[2023-11-11 21:33] LABS: Urine Culture Reflex Yes Yes
[2023-11-11] MEDS ORDERED: Sodium Chloride 0.9% 100 ML ONE (22:09)
[2023-11-11] MEDS ORDERED: cefTRIAXone (ROCEPHIN) 1 GM VIAL ONE (22:09)
[2023-11-11] MEDS ORDERED: Dextrose 5% in Water 1,000 ML IV PRN (22:15)
[2023-11-11] MEDS ORDERED: Dextrose 50% Abboject 50 ML SYRINGE SLOW IVP PRN (22:15)
[2023-11-11] MEDS ORDERED: Ondansetron ODT 4 MG TAB PO PRN (22:15)
[2023-11-11] MEDS ORDERED: Ondansetron PF 4 MG/2 ML Vial IVP PRN (22:15)
[2023-11-11] MEDS ORDERED: Glucagon 1 MG/ML KIT IM PRN (22:15)
[2023-11-12] MEDS ORDERED: Carvedilol 6.25 MG TAB ONE ×2 (00:06→10:43)
[2023-11-12] MEDS: Carvedilol 6.25 MG TAB PO SCH (00:11)
[2023-11-12 01:53] LABS: Magnesium 2.2 mg/dL (1.6-2.6)
[2023-11-12 02:05] LABS: HBSAB Concentration Less than 8.00 mIU/mL; HBSAg Index 0.96 S/CO (0-0.99); Hep B Core Total Ab Non-Reactive (NonReactive); Hep B Surf AB Non-Reactive (NonReactive); Hep B Surf Ag Non-Reactive S/CO (NonReactive); Hep C IgG Ab Non-Reactive S/CO (NonReactive); Hep C Index 0.08 S/CO (0-0.79)
[2023-11-12 04:48] LABS: #Basophils 0.1 thou/uL (0.0-0.2); #Eosinphils 0.2 thou/uL (0.0-0.7); #Monocytes 0.5 thou/uL (0.11-0.59); #Neutrophils 4.8 thou/uL (1.40-6.50); %Basophils 0.9 % (0.0-1.0); %Lymphocytes 4.7 % (21.0-51.0); %Monocytes 8.3 % (0.0-10.0); %Neutrophils 81.9 % (42.0-75.0); Hematocrit 44.9 % (42.0-52.0); Hemoglobin 13.8 g/dL (14.0-18.0); Mean Corpuscular HGB CONC 30.7 g/dL (32.0-36.0); Mean Corpuscular Hemoglobin 26.2 pg (27.0-31.0); Mean Corpuscular Volume 85.4 fl (78.0-98.0); Mean Platelet Volume 9.7 fL (7.4-10.4); Platelet Count 195 10x3/uL (130-400); RBC Distribution Width 18.8 % (11.5-14.5); Red Blood Cell (RBC) Count 5.26 mill/uL (4.70-6.10); White Blood Cell (WBC) Count 5.8 10x3/uL (4.8-10.8)
[2023-11-12 05:14] LABS: Anion Gap 17 mmol/L (10-20); BUN (Urea Nitrogen) 12 mg/dL (8.4-25.7); Calc. Creatinine Clearance 0 mL/min (70-130); Calcium 9.3 mg/dL (7.8-10.44); Carbon Dioxide 29 mmol/L (23-31); Chloride 96 mmol/L (98-107); Estimated GFR 38; Glucose 95 mg/dL (83-110); Magnesium 2.1 mg/dL (1.6-2.6); Potassium 3.7 mmol/L (3.5-5.1); Sodium 138 mmol/L (136-145)
[2023-11-12 05:31] LABS: HBSAB Concentration Less than 8.00 mIU/mL; HBSAg Index 0.19 S/CO (0-0.99); Hep B Core Total Ab Non-Reactive (NonReactive); Hep B Surf AB Non-Reactive (NonReactive); Hep B Surf Ag Non-Reactive S/CO (NonReactive); Hep C IgG Ab Non-Reactive S/CO (NonReactive); Hep C Index 0.08 S/CO (0-0.79)
[2023-11-12] MEDS ORDERED: Carvedilol 25 MG TAB PO SCH (08:00)
[2023-11-12] MEDS ORDERED: Amlodipine 5 MG TAB ONE (10:43)
[2023-11-12] MEDS ORDERED: hydrALAZINE 25 MG TAB ONE (10:43)
[2023-11-12] MEDS ORDERED: Heparin 5,000 UNITS/ML VIAL ONE (10:43)
[2023-11-12] MEDS: Carvedilol 25 MG TAB PO SCH (10:44)
[2023-11-12] MEDS: hydrALAZINE 25 MG TAB PO SCH (10:44)
[2023-11-12] MEDS: Amlodipine 10 MG TAB PO SCH (10:44)
[2023-11-12] MEDS: Heparin 5,000 UNITS/ML VIAL SC SCH (11:56)
[2023-11-12 14:13] VITALS: BMI 17.3
[2023-11-12] MEDS ORDERED: Amlodipine 5 MG TAB PO PRN (18:11)
[2023-11-12] MEDS ORDERED: traZODone HCl 50 MG TAB PO PRN (18:11)
[2023-11-12] MEDS ORDERED: Non-Formulary Item 1 EACH (Hydralazine Hcl [Hydralazine Hcl] 50 MG Tablet) PO SCH (21:00)
[2023-11-12] MEDS: cefTRIAXone\\ROCEPHIN 1 GM in Sodium Chloride 0.9% 100 ML IVPB SCH (22:57)
[2023-11-13] MEDS: hydrALAZINE 20 MG/ML VIAL SLOW IVP SCH ×2 (02:26→05:16)
[2023-11-13 04:46] LABS: #Basophils 0.1 thou/uL (0.0-0.2); #Monocytes 0.8 thou/uL (0.11-0.59); #Neutrophils 3.5 thou/uL (1.40-6.50); %Basophils 1.2 % (0.0-1.0); %Eosinophils 0.8 % (0.0-10.0); %Lymphocytes 13.7 % (21.0-51.0); %Neutrophils 69.1 % (42.0-75.0); Hematocrit 45.2 % (42.0-52.0); Mean Corpuscular Hemoglobin 26.4 pg (27.0-31.0); Mean Corpuscular Volume 85.1 fl (78.0-98.0); Mean Platelet Volume 9.4 fL (7.4-10.4); Platelet Count 176 10x3/uL (130-400); RBC Distribution Width 18.3 % (11.5-14.5); Red Blood Cell (RBC) Count 5.31 mill/uL (4.70-6.10); White Blood Cell (WBC) Count 5.1 10x3/uL (4.8-10.8)
[2023-11-13 05:18] LABS: Anion Gap 17 mmol/L (10-20); BUN (Urea Nitrogen) 40 mg/dL (8.4-25.7); Calc. Creatinine Clearance 13 mL/min (70-130); Calcium 8.8 mg/dL (7.8-10.44); Carbon Dioxide 28 mmol/L (23-31); Chloride 95 mmol/L (98-107); Estimated GFR 16; Glucose 87 mg/dL (83-110); Potassium 4.4 mmol/L (3.5-5.1); Sodium 136 mmol/L (136-145)
[2023-11-13] MEDS: Acetaminophen 325 MG TAB PO PRN (05:28)
[2023-11-13] MEDS: hydrALAZINE 25 MG TAB PO SCH (09:00)
[2023-11-13] MEDS: Sevelamer Carbonate 800 MG TAB PO SCH (09:00)
[2023-11-13] MEDS: Lorazepam 2 MG/ML VIAL SLOW IVP SCH (11:36)
[2023-11-13] MEDS: Folic Acid/Vit B Comp W-C PO SCH (15:47)
[2023-11-13] MEDS: HumaLOG 300 UNITS/3 ML VIAL SC PRN ×2 (17:45→20:47)
[2023-11-13] MEDS: traZODone HCl 50 MG TAB PO SCH (20:47)
[2023-11-14 04:59] LABS: #Basophils 0.1 thou/uL (0.0-0.2); #Eosinphils 0.2 thou/uL (0.0-0.7); #Monocytes 0.7 thou/uL (0.11-0.59); #Neutrophils 3.8 thou/uL (1.40-6.50); %Basophils 0.9 % (0.0-1.0); %Eosinophils 3.4 % (0.0-10.0); %Lymphocytes 12.1 % (21.0-51.0); %Monocytes 12.5 % (0.0-10.0); %Neutrophils 70.7 % (42.0-75.0); Hemoglobin 14.5 g/dL (14.0-18.0); Mean Corpuscular HGB CONC 30.9 g/dL (32.0-36.0); Mean Corpuscular Hemoglobin 26.2 pg (27.0-31.0); Platelet Count 156 10x3/uL (130-400); Red Blood Cell (RBC) Count 5.53 mill/uL (4.70-6.10); White Blood Cell (WBC) Count 5.3 10x3/uL (4.8-10.8)
[2023-11-14 05:27] LABS: Anion Gap 19 mmol/L (10-20); BUN (Urea Nitrogen) 42 mg/dL (8.4-25.7); Calc. Creatinine Clearance 12 mL/min (70-130); Calcium 8.9 mg/dL (7.8-10.44); Carbon Dioxide 27 mmol/L (23-31); Chloride 94 mmol/L (98-107); Estimated GFR 17; Glucose 130 mg/dL (83-110); Potassium 4.5 mmol/L (3.5-5.1); Sodium 135 mmol/L (136-145)
[2023-11-14] MEDS ORDERED: traMADol HCl 50 MG TAB PO PRN ×2 (13:31→14:22)
[2023-11-14 15:25] VITALS: BP 124/63; TEMP 97.5
[2023-11-14] MEDS ORDERED: Carvedilol 6.25 MG TAB PO SCH (17:00)
== END 2023-11-14 17:19 | disposition home health service (06) | DRG 291 ==
LOC: ERS 19:22 → ERHOLD 22:07 → OBSVTOIN 22:52 → 2NO 11-12 14:08
PROVIDERS: ADMIT Internal Medicine; ATTEND Emergency Medicine
PROC: 5A09357 Assistance with Respiratory Ventilation, Less than 24 Consecutive Hours, Continuous Positive Airway Pressure (ICD-10-PCS; principal; 2023-11-12)
PROC: 5A1D70Z Performance of Urinary Filtration, Intermittent, Less than 6 Hours Per Day (ICD-10-PCS; 2023-11-12)
PROC: 5A1D70Z Performance of Urinary Filtration, Intermittent, Less than 6 Hours Per Day (ICD-10-PCS; 2023-11-13)
DX: I13.2 Hypertensive heart and chronic kidney disease with heart failure and with stage 5 chronic kidney disease, or end stage renal disease (principal); G93.41 Metabolic encephalopathy; I50.33 Acute on chronic diastolic (congestive) heart failure; J96.01 Acute respiratory failure with hypoxia; N18.6 End stage renal disease; R64 Cachexia; E11.22 Type 2 diabetes mellitus with diabetic chronic kidney disease; G47.00 Insomnia, unspecified; Z66 Do not resuscitate; D63.1 Anemia in chronic kidney disease; G25.81 Restless legs syndrome; E11.40 Type 2 diabetes mellitus with diabetic neuropathy, unspecified; Z98.890 Other specified postprocedural states; Z88.5 Allergy status to narcotic agent; Z99.2 Dependence on renal dialysis; Z79.4 Long term (current) use of insulin; Z79.899 Other long term (current) drug therapy
CPT/HCPCS: 36415; 36416; 51701; 70450; 71045; 80048; 80053; 81001; 82805; 83605; 83690; 83735; 83880; 84484; 85025; 86704; 87040; 87086; 90935; 93005; 93306; 94660; 96365; G0257; J0360; J0696; J1644; J1815; J2060; J3490

== ENCOUNTER 2024-10-20 00:42 | Inpatient (IN) | payer MEDICARE, SELFPAY ==
[2024-10-20] MEDS ORDERED: cloNIDine 0.1 MG TAB ONE (01:06)
[2024-10-20 02:53] LABS: #Basophils 0.07 10x3/uL (0.0-0.2); %Lymphocytes 9.8 % (21.0-51.0); %Monocytes 6.1 % (0.0-10.0); %Neutrophils 76.7 % (42.0-75.0); Hematocrit 32.6 % (42.0-52.0); Hemoglobin 10.4 g/dL (14.0-18.0); Mean Corpuscular HGB CONC 31.9 g/dL (32.0-36.0); Mean Corpuscular Hemoglobin 28.3 pg (27.0-31.0); Mean Corpuscular Volume 88.8 fL (78.0-98.0); Mean Platelet Volume 10.1 fL (7.4-10.4); Platelet Count 185 10x3/uL (130-400); Red Blood Cell (RBC) Count 3.67 mill/uL (4.70-6.10)
[2024-10-20] MEDS ORDERED: hydrALAZINE 20 MG/ML VIAL ONE ×2 (02:57→04:07)
[2024-10-20 03:12] LABS: INR-International Normal Ratio 1.2; Prothrombin Time 14.8 sec (12.0-14.7)
[2024-10-20 03:40] LABS: ALT (SGPT) 12 U/L (8-55); AST (SGOT) 21 U/L (5-34); Albumin 3.6 g/dL (3.4-4.8); Alkaline Phosphatase 128 U/L (40-110); Anion Gap 15 mmol/L (10-20); BUN (Urea Nitrogen) 50 mg/dL (8.4-25.7); Bilirubin, Total 0.4 mg/dL (0.2-1.2); Calc. Creatinine Clearance 0 mL/min (70-130); Calcium 9.2 mg/dL (7.8-10.44); Carbon Dioxide 29 mmol/L (23-31); Chloride 97 mmol/L (98-107); Estimated GFR 17; Globulin 3.7 g/dL (2.4-3.5); Glucose 236 mg/dL (83-110); Magnesium 2.8 mg/dL (1.6-2.6); Potassium 4.8 mmol/L (3.5-5.1); Protein, Total 7.3 g/dL (5.8-8.1); Sodium 136 mmol/L (136-145)
[2024-10-20 03:43] LABS: Troponin I 0.048 ng/mL (< 0.028)
[2024-10-20] MEDS ORDERED: Aspirin Chewable 81 MG TAB ONE (06:29)
[2024-10-20 07:39] LABS: Troponin I 0.038 ng/mL (< 0.028)
[2024-10-20] MEDS ORDERED: Ondansetron ODT 4 MG TAB PO PRN (08:05)
[2024-10-20] MEDS ORDERED: Senokot S 8.6-50 MG TAB PO PRN (08:05)
[2024-10-20] MEDS ORDERED: cloNIDine 0.1 MG TAB PO PRN (08:09)
[2024-10-20 08:22] VITALS: BMI 19.4
[2024-10-20] MEDS ORDERED: Glucagon 1 MG/ML KIT IM PRN (09:04)
[2024-10-20] MEDS ORDERED: Insulin Lispro 100 UNIT/ML 10 ML VIAL SC PRN (09:04)
[2024-10-20] MEDS ORDERED: Dextrose 5% in Water 1,000 ML IV PRN (09:04)
[2024-10-20] MEDS ORDERED: Dextrose 50% Abboject 50 ML SYRINGE SLOW IVP PRN (09:04)
[2024-10-20 10:07] LABS: Troponin I 0.048 ng/mL (< 0.028)
[2024-10-20] MEDS: Amlodipine 10 MG TAB PO SCH (12:12)
[2024-10-20] MEDS: Carvedilol 6.25 MG TAB PO SCH ×2 (12:13→16:45)
[2024-10-20] MEDS: hydrALAZINE 25 MG TAB PO SCH (12:13)
[2024-10-20] MEDS: Sevelamer Carbonate 800 MG TAB PO SCH (13:45)
[2024-10-20] MEDS: Insulin Lispro 100 UNIT/ML 10 ML VIAL SC PRN (13:45)
[2024-10-21 06:14] LABS: #Basophils 0.08 10x3/uL (0.0-0.2); %Eosinophils 5.8 % (0.0-10.0); %Lymphocytes 9.1 % (21.0-51.0); %Monocytes 6.9 % (0.0-10.0); %Neutrophils 76.6 % (42.0-75.0); Hematocrit 31.7 % (42.0-52.0); Mean Corpuscular HGB CONC 31.5 g/dL (32.0-36.0); Mean Corpuscular Hemoglobin 28.6 pg (27.0-31.0); Mean Corpuscular Volume 90.6 fL (78.0-98.0); Mean Platelet Volume 10.4 fL (7.4-10.4); Platelet Count 180 10x3/uL (130-400); RBC Distribution Width 18.5 % (11.5-14.5)
[2024-10-21 06:35] LABS: Albumin 3.3 g/dL (3.4-4.8); Anion Gap 18 mmol/L (10-20); BUN (Urea Nitrogen) 64 mg/dL (8.4-25.7); BUN/Creatinine Ratio 13.33; Calc. Creatinine Clearance 11 mL/min (70-130); Calcium 8.9 mg/dL (7.8-10.44); Carbon Dioxide 28 mmol/L (23-31); Chloride 95 mmol/L (98-107); Estimated GFR 12; Glucose 158 mg/dL (83-110); Phosphorus 1.8 mg/dL (2.3-4.7); Potassium 5.1 mmol/L (3.5-5.1); Sodium 136 mmol/L (136-145)
[2024-10-21 06:44] LABS: HBSAB Concentration Less than 8.00 mIU/mL; HBsAg Index 0.28 S/CO (0-0.99); Hep B Core Total Ab NONREACTIVE (NonReactive); Hep B Core Total Index 0.09 S/CO (0-0.79); Hep B Surf AB NONREACTIVE (NonReactive); Hep B Surf Ag NONREACTIVE S/CO (NonReactive); Hep C IgG Ab NONREACTIVE S/CO (NonReactive); Hep C Index 0.05 S/CO (0-0.79)
[2024-10-21 10:16] VITALS: BMI 19.4
[2024-10-21] MEDS: Acetaminophen 325 MG TAB PO PRN (14:21)
[2024-10-21] MEDS: Acetaminophen 500 MG TAB PO PRN (18:11)
[2024-10-21] MEDS: rOPINIRole HCl 1 MG TAB PO SCH (21:39)
[2024-10-21] MEDS: traZODone HCl 50 MG TAB PO SCH (21:39)
[2024-10-22 13:39] VITALS: BP 154/73; TEMP 98.1
== END 2024-10-22 15:05 | disposition home health service (06) | DRG 304 ==
LOC: ERS 00:42 → OBS 06:15 → OBSVTOIN 09:06 → T4-B 10:28
PROVIDERS: ADMIT Internal Medicine; ATTEND Internal Medicine
PROC: 3E0234Z Introduction of Serum, Toxoid and Vaccine into Muscle, Percutaneous Approach (ICD-10-PCS; principal; 2024-10-20)
DX: I16.0 Hypertensive urgency (principal); N18.6 End stage renal disease; S52.592A Other fractures of lower end of left radius, initial encounter for closed fracture; I50.32 Chronic diastolic (congestive) heart failure; G93.40 Encephalopathy, unspecified; I16.1 Hypertensive emergency; E11.22 Type 2 diabetes mellitus with diabetic chronic kidney disease; I13.2 Hypertensive heart and chronic kidney disease with heart failure and with stage 5 chronic kidney disease, or end stage renal disease; E11.319 Type 2 diabetes mellitus with unspecified diabetic retinopathy without macular edema; E11.40 Type 2 diabetes mellitus with diabetic neuropathy, unspecified; G25.81 Restless legs syndrome; H54.8 Legal blindness, as defined in USA; R79.89 Other specified abnormal findings of blood chemistry; F41.9 Anxiety disorder, unspecified; M85.80 Other specified disorders of bone density and structure, unspecified site; Z60.2 Problems related to living alone; W07.XXXA Fall from chair, initial encounter; Z88.8 Allergy status to other drugs, medicaments and biological substances; Z91.012 Allergy to eggs; Z79.899 Other long term (current) drug therapy; Z79.4 Long term (current) use of insulin; Z99.2 Dependence on renal dialysis; Z23 Encounter for immunization
CPT/HCPCS: 36415; 36416; 70450; 71045; 80053; 80069; 83735; 83880; 84484; 85025; 85610; 85730; 86704; 86706; 86803; 87340; 90935; 93005; 93010; 96374; 96376; G0257; G0378; J0360; J1815

== ENCOUNTER 2025-09-13 11:06 | Inpatient (IN) | payer MEDICARE ==
[2025-09-13 12:49] LABS: #Basophils 0.05 10x3/uL (0.0-0.2); #Eosinophils 0.15 10x3/uL (0.0-0.7); #Monocytes 0.67 10x3/uL (0.11-0.59); #Neutrophils 7.99 10x3/uL (1.40-6.50); %Basophils 0.5 % (0.0-1.0); %Eosinophils 1.5 % (0.0-10.0); %Lymphocytes 8.3 % (21.0-51.0); %Monocytes 6.9 % (0.0-10.0); %Neutrophils 82.0 % (42.0-75.0); Hematocrit 26.0 % (42.0-52.0); Hemoglobin 8.5 g/dL (14.0-18.0); Mean Corpuscular Hemoglobin 30.9 pg (27.0-31.0); Mean Corpuscular Volume 94.5 fL (78.0-98.0); Platelet Count 194 10x3/uL (130-400); Red Blood Cell (RBC) Count 2.75 mill/uL (4.70-6.10); White Blood Cell (WBC) Count 9.75 10x3/uL (4.8-10.8)
[2025-09-13] MEDS ORDERED: Calcium Chloride 1 GM/10 ML Abboject SYRINGE ONE (13:13)
[2025-09-13] MEDS ORDERED: CALCIUM GLUC 1 GM/NS 50 ML IV Bag ONE (13:22)
[2025-09-13 13:25] LABS: ALT (SGPT) 9 U/L (Less than 45); AST (SGOT) 36 U/L (11-34); Albumin 3.4 g/dL (3.1-4.5); Alkaline Phosphatase 92 U/L (40-110); Anion Gap 22 mmol/L (10-20); BUN (Urea Nitrogen) 56 mg/dL (8.4-25.7); Bilirubin, Total 0.3 mg/dL (0.3-1.2); Calc. Creatinine Clearance 0 mL/min (70-130); Calcium 9.0 mg/dL (7.8-10.44); Carbon Dioxide 27 mmol/L (23-31); Chloride 99 mmol/L (98-107); Globulin 3.5 g/dL (2.4-3.5); Glucose 148 mg/dL (83-110); Lipase 7 U/L (8-78); Potassium 7.4 mmol/L (3.5-5.1); Sodium 141 mmol/L (136-145)
[2025-09-13] MEDS ORDERED: Dextrose 50% Abboject 50 ML SYRINGE SLOW IVP PRN (14:23)
[2025-09-13] MEDS ORDERED: Glucagon 1 MG/ML KIT IM PRN (14:23)
[2025-09-13] MEDS ORDERED: Albuterol 2.5 MG (3 mL) NEB ONE (14:46)
[2025-09-13] MEDS ORDERED: Dextrose 50% Abboject 50 ML SYRINGE ONE (14:47)
[2025-09-13] MEDS ORDERED: Heparin 10,000 UNITS/ 10 ML VIAL FS PRN (15:53)
[2025-09-13 16:59] VITALS: BMI 20.7
[2025-09-13 17:11] LABS: HBSAB Concentration Less than 8.00 mIU/mL; Hep B Core Total Ab NONREACTIVE (NonReactive); Hep B Core Total Index 0.21 S/CO (0-0.79); Hep B Surf Ag NONREACTIVE S/CO (NonReactive); Hep C IgG Ab NONREACTIVE S/CO (NonReactive); Hep C Index 0.07 S/CO (0-0.79)
[2025-09-13] MEDS: Carvedilol 6.25 MG TAB PO SCH (21:10)
[2025-09-13 22:34] LABS: Potassium 3.9 mmol/L (3.5-5.1)
[2025-09-14 04:35] LABS: Influenza A by NAA Not Detected (NotDetected); Influenza B by NAA Not Detected (NotDetected); RSV by NAA Not Detected (NotDetected); SARS-CoV-2 NAA Rapid Test Not Detected (NotDetected)
[2025-09-14 04:43] LABS: #Basophils 0.04 10x3/uL (0.0-0.2); #Eosinophils 0.23 10x3/uL (0.0-0.7); #Monocytes 0.74 10x3/uL (0.11-0.59); #Neutrophils 6.73 10x3/uL (1.40-6.50); %Basophils 0.5 % (0.0-1.0); %Eosinophils 2.7 % (0.0-10.0); %Lymphocytes 9.9 % (21.0-51.0); %Monocytes 8.6 % (0.0-10.0); %Neutrophils 77.7 % (42.0-75.0); Hematocrit 24.9 % (42.0-52.0); Hemoglobin 7.9 g/dL (14.0-18.0); Mean Corpuscular Hemoglobin 30.0 pg (27.0-31.0); Mean Corpuscular Volume 94.7 fL (78.0-98.0); Platelet Count 199 10x3/uL (130-400); Red Blood Cell (RBC) Count 2.63 mill/uL (4.70-6.10); White Blood Cell (WBC) Count 8.65 10x3/uL (4.8-10.8)
[2025-09-14 10:53] LABS: Anion Gap 16 mmol/L (10-20); BUN (Urea Nitrogen) 18 mg/dL (8.4-25.7); Calc. Creatinine Clearance 18 mL/min (70-130); Calcium 8.6 mg/dL (7.8-10.44); Carbon Dioxide 31 mmol/L (23-31); Chloride 97 mmol/L (98-107); Glucose 147 mg/dL (83-110); Potassium 4.5 mmol/L (3.5-5.1); Sodium 139 mmol/L (136-145)
[2025-09-14] MEDS ORDERED: Sertraline 25 MG TAB PO PRN (15:23)
[2025-09-14] MEDS ORDERED: diphenhydrAMINE 25 MG CAP PO PRN (15:23)
[2025-09-14] MEDS ORDERED: Brimonidine Tartrate 0.2% Ophth Soln 5 ml Bottle R EYE PRN (15:23)
[2025-09-15 04:28] LABS: Hematocrit 25.1 % (42.0-52.0); Hemoglobin 8.0 g/dL (14.0-18.0); Mean Corpuscular Hemoglobin 30.3 pg (27.0-31.0); Mean Corpuscular Volume 95.1 fL (78.0-98.0); Platelet Count 205 10x3/uL (130-400); Red Blood Cell (RBC) Count 2.64 mill/uL (4.70-6.10); White Blood Cell (WBC) Count 8.19 10x3/uL (4.8-10.8)
[2025-09-15 04:41] LABS: Anion Gap 13 mmol/L (10-20); BUN (Urea Nitrogen) 33 mg/dL (8.4-25.7); Calc. Creatinine Clearance 13 mL/min (70-130); Calcium 8.4 mg/dL (7.8-10.44); Carbon Dioxide 32 mmol/L (23-31); Chloride 98 mmol/L (98-107); Glucose 126 mg/dL (83-110); Potassium 4.8 mmol/L (3.5-5.1); Sodium 138 mmol/L (136-145)
[2025-09-15] MEDS ORDERED: Ondansetron PF 4 MG/2 ML Vial IVP PRN (09:49)
[2025-09-15] MEDS ORDERED: Acetaminophen 325 MG TAB PO PRN (12:21)
[2025-09-16 04:59] LABS: Hematocrit 27.1 % (42.0-52.0); Hemoglobin 8.4 g/dL (14.0-18.0); Mean Corpuscular Hemoglobin 29.7 pg (27.0-31.0); Mean Corpuscular Volume 95.8 fL (78.0-98.0); Platelet Count 202 10x3/uL (130-400); Red Blood Cell (RBC) Count 2.83 mill/uL (4.70-6.10); White Blood Cell (WBC) Count 7.20 10x3/uL (4.8-10.8)
[2025-09-16 05:09] LABS: Anion Gap 14 mmol/L (10-20); BUN (Urea Nitrogen) 24 mg/dL (8.4-25.7); Calc. Creatinine Clearance 19 mL/min (70-130); Calcium 8.4 mg/dL (7.8-10.44); Carbon Dioxide 32 mmol/L (23-31); Chloride 98 mmol/L (98-107); Glucose 167 mg/dL (83-110); Potassium 4.7 mmol/L (3.5-5.1); Sodium 139 mmol/L (136-145)
[2025-09-16 12:05] VITALS: TEMP 98.1
[2025-09-16] MEDS: FLU (Fluad Triv) 25-26 (65UP)PF 45 MCG/0.5 ML Syringe IM ONE (12:52)
[2025-09-16 15:27] VITALS: BP 122/60
== END 2025-09-16 18:25 | disposition home or self-care (01) | DRG 640 ==
LOC: ERS 11:06 → 2NO 14:16
PROVIDERS: ADMIT Family Medicine; ATTEND Internal Medicine
DX: E87.5 Hyperkalemia (principal); N18.6 End stage renal disease; I50.32 Chronic diastolic (congestive) heart failure; I13.2 Hypertensive heart and chronic kidney disease with heart failure and with stage 5 chronic kidney disease, or end stage renal disease; E87.70 Fluid overload, unspecified; E11.9 Type 2 diabetes mellitus without complications; Z88.5 Allergy status to narcotic agent; Z91.0120 Allergy to eggs, unspecified; G25.81 Restless legs syndrome; Z98.890 Other specified postprocedural states; D63.1 Anemia in chronic kidney disease; R62.7 Adult failure to thrive
CPT/HCPCS: 36415; 36416; 71045; 80048; 80053; 83036; 83690; 84484; 85025; 85027; 86704; 86706; 86803; 87340; 87428; 87637; 90935; 93005; 93010; 96365; 96375; G0257; J0613; J0690; J1644; J1815; J7611; J7999